=== PATIENT | female | born 1995 | race Caucasian/White ===

== ENCOUNTER → 2022-04-24 | Outpatient (CLI) | payer BC, SELFPAY ==
[2022-04-27 22:48] LABS: HPV Reflexed? NOT INDICATED
== END | disposition home or self-care (01) ==
LOC: LABSPEC 12:26
PROVIDERS: Referring Provider Registered Nurse; Visit Provider Registered Nurse
DX: Z12.4 Encounter for screening for malignant neoplasm of cervix (principal)
CPT/HCPCS: 88175; G0145

== ENCOUNTER → 2023-02-09 | Outpatient (CLI) | payer BC, SELFPAY ==
[2023-02-09 17:08] LABS: Absolute Lymphocyte Count 3.32 X10^3/uL (0.83-4.51); Absolute Neutrophil Count 7.5 X10^3/uL (2.0-7.7); Basophil# 0.06 X10^3/uL; Basophil% 0.5 % (0-1); Eosinophil# 0.11 X10^3/uL; Eosinophils% 0.9 % (0-5); Hematocrit 41.1 % (37-47); Hemoglobin 13.4 g/dL (12.0-15.0); Lymphocyte # 3.32 X10^3/ul (0.83-4.51); Lymphocyte % 28.4 % (19-41); Mean Corp Hgb Conc 32.6 g/dL (32-36); Mean Corpuscular Hgb 28.2 pg (27.0-32.0); Mean Corpuscular Volume 86.3 fL (81-99); Mean Platelet Vol. 9.2 fl (6.2-12.0); NRBC Flagged by Analyzer 0 % (0-5); Neutrophil # 7.46 X10^3/uL (2.7-7.7); Neutrophil % 63.7 % (47-70); Platelet Count 405 K/mm3 (150-450); RBC Distribution Width CV 12.2 % (11.6-14.6); RBC Distribution Width SD 38.6 fl (35.1-43.9); Red Blood Count 4.76 M/mm3 (4.2-5.4); White Blood Count 11.7 K/mm3 (4.4-11.0)
[2023-02-09 18:26] LABS: T4 Free Direct 0.89 ng/dL (0.76-1.46); Thyroid Stim Hormone (TSH) 1.45 uIU/mL (0.358-3.74)
== END | disposition home or self-care (01) ==
LOC: LAB 16:43
PROVIDERS: Referring Provider Registered Nurse; Visit Provider Registered Nurse
DX: N92.6 Irregular menstruation, unspecified (principal)
CPT/HCPCS: 36415; 84439; 84443; 85025

== ENCOUNTER → 2023-02-26 | Outpatient (CLI) | payer BC, SELFPAY ==
--- NOTE | 2023-02-26 15:20 | US_ITS ---
STUDY: ULTRASOUND TRANSVAGINAL CLINICAL: Female, 27 years old. abnormal uterine bleeding TECHNIQUE: Transvaginal COMPARISON: None. FINDINGS: Normal uterine size measuring 7.6 x 4.0 x 3.4 cm in maximal craniocaudal dimension. There are no myometrial masses. Normal endometrial thickness measuring 7 mm. There are no endometrial masses, and there is no fluid in the endometrial cavity. Endometrial echoes are hyperechoic and well-defined. Nabothian cysts of the uterine cervix. Normal right ovary, measuring 4.3 x 4.1 x 2.9 cm. There are multiple follicles without a dominant cyst. Normal blood flow. Normal left ovary, measuring 4.1 x 2.3 x 2.6 cm. There is a complex heterogeneous and primarily hyperechoic mass measuring 4.2 cm greatest dimension most consistent with dermoid. Normal blood flow. There is mild free fluid in the pelvis. Polycystic ovary disease: No. 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 Electronically Signed: Des Jarvis MD at 21:54 EST ,
== END | disposition home or self-care (01) ==
LOC: OPUS 15:19
PROVIDERS: Referring Provider Registered Nurse; Visit Provider Registered Nurse
DX: N92.6 Irregular menstruation, unspecified (principal)
CPT/HCPCS: 76830

== ENCOUNTER → 2023-05-02 | Outpatient (CLI) | payer BC, SELFPAY ==
--- OUTSIDE RECORDS SUMMARY | 2023-05-02 17:15 | XMS RPT_ITS | CCD ---
Author Name Unknown Address [address] [place] [address] Organization [facility] Care Team Providers Care Leak Detector Name Role Phone Vince Gunter Primary Care Provider Radha Membreno MD Primary Care Provider MARTHA FINCH Attending Unava ilable RADHA MEMBRENO Primary Care UnavailEloy Mayers Unavailable [phone] Unavailable Unavailable ELOY LOWERY Primary Care Unavailable ELOY LOWERY Attending Unavailable ELOY LOWERY Referring Unavailable Radha Membreno MD Primary Care Provider RADHA MEMBRENO Primary Care UnavailRADHA Miranda Attending RADHA Oleary Referring RADHA Oleary Primary Care Unavailabl e JERMAINE BAH Primary Care Unavailable RADHA MEMBRENO Attending Walter e Medications Current Medications Medication Drug Class(es) Dates Sig (Normalized) Sig (Original) perflutren lipid microspheres 1.3 mL in NaCl (PF) 0.9% 10 mL injection (DEFINITY) (1 source) Start: 08-04-2022 End: 11-03-2023 perflutren lipid microspheres 1.3 mL in NaCl (PF) 0.9% 10 mL injection (DEFINITY) 125 ml sodium chloride 9 mg/ml prefilled syringe (1 source) Start: 08-04-2022 End: 11-03-2023 sodium chloride 0.9 % (flush) 10 mL (BD POSIFLUSH) Completed/Discontinued Medications Medication Drug Class(es) Dates Sig (Normalized) Sig (Original) Ethinyl Estradiol / Norgestrel (3 sources) Estrogen Start: 02-28-2021 End: 08-04-2022 take 1 tablet by mouth once daily norgestrel-ethinyl estradiol (CRYSELLE) 0.3-30 mg-mcg per tablet Take 1 tablet by mouth once daily. 28 tablet 3 02/28/2021 08/04/2022 Discontinued Problems Active Problems Problem Classification Problem Date Documented Da te Episodic/Chronic Immunizations and screening for infectious disease (1 source) Vaccination needed; Translations: [Encounter for immunization] Episodic Nonspecific chest pain (5 sources) Chest pain, unspecified; Translations: [Finding of region of thorax] Onset: 03-18-2022 Episodic Residual codes; unclassified (1 source) Body mass index 20-24 - normal; Translations: [Body Mass Index between 19-24, adult] Episodic Sprains and strains (1 source) Whiplash injury to neck; Translations: [Whiplash injury to neck, initial encounter] Episodic Superficial injury; contusion (1 source) Contusion of face; Translations: [Contusion of jaw, initial encounter] Episodic Past or Other Problems Problem Classification Problem Date Documented Da te Episodic/Chronic Syncope (2 sources) Syncope; Translations: [Syncope and collapse] Onset: 02-16-2022 Episodic Results Test Name Value Interpretation Reference Range Facil ity Vital Signs Date Time Vital Sign Value Performing Clinician Hank velázquez 08-04-2022 13:38-0400 Body height 159 cm Radha Middleton Work Phone: [facility] 08-04-2022 13:38-0400 Body temperature 97.9 [degF] Radha Middleton Work Phone: [facility] 08-04-2022 13:38-0400 Body weight 58.97 kg Radha Middleton Work Phone: [facility] 08-04-2022 13:38-0400 Diastolic blood pressure 74 mm[Hg] Radha Membreno MD Work Phone: [facility] 08-04-2022 13:38-0400 Heart rate 77 /min Radha Middleton Work Phone: [facility] 08-04-2022 13:38-0400 Systolic blood pressure 110 mm[Hg] Radha Membreno MD Work Phone: [facility] 03-24-2022 13:32-0500 Body height 159 cm Eloy Nag S Mallapareddi Work Phone: [facility] Work Phone: 03-24-2022 13:32-0500 Body mass index (BMI) [Ratio] 23.5 kg/m2 Eloy Nag S Mallapareddi Work Phone: [facility] Work Phone: 03-24-2022 13:32-0500 Body surface area Derived from formula 1.61 m2 Eloy Nag S Mallapareddi Work Phone: [facility] Work Phone: 03-24-2022 13:32-0500 Body weight 59.42 kg Eloy Nag S Mallapareddi Work Phone: [facility] Work Phone: 03-24-2022 13:32-0500 Diastolic blood pressure 70 mm[Hg] Eloy Nag S Mallapareddi Work Phone: [facility] Work Phone: 03-24-2022 13:32-0500 Heart rate 72 /min Eloy Nag S Mallapareddi Work Phone: [facility] Work Phone: 03-24-2022 13:32-0500 Systolic blood pressure 126 mm[Hg] Eloy Nag S Mallapareddi Work Phone: [facility] Work Phone: 02-16-2022 13:05-0400 Body weight 59.06 kg Radha Middleton Work Phone: [facility] 02-16-2022 13:05-0400 Diastolic blood pressure 84 mm[Hg] Radha Membreno MD Work Phone: [facility] 02-16-2022 13:05-0400 Heart rate 98 /min Radha Middleton Work Phone: [facility] 02-16-2022 13:05-0400 SaO2% (BldA) [Mass fraction] 100 % Radha Membreno MD Work Phone: [facility] 02-16-2022 13:05-0400 Systolic blood pressure 126 mm[Hg] Radha Membreno MD Work Phone: [facility] Encounters Encounter Date Encounter Type Care Provider Facility Start: 08-04-2022 End: 08-04-2022 ambulatory RADHA MEMBRENO Facility:[facility] Start: 08-04-2022 End: 08-04-2022 Patient encounter procedure Radha Membreno MD Work Phone: [facility] Procedures Date Procedure Procedure Detail Performing Clinician Start: 02-16-2022 INFLUENZA VACCINE QUADRIVALENT 6 MO - 64 YRS IM Radha Membreno MD Work Phone: Start: 04-27-2020 Radiolog exam mandib le compl minimum 4 views Mikayla Montgomery Work Phone: Start: 04-27-2020 Radex spine cervical 2 or 3 views Mikayla Montgomery Work Phone: No history of surgery Eloy Lowery Work Phone: Plan of Treatment Date Care Activity Detail Author Start: 04-21-2022 FUV, Provider: Eloy Lowery, Status: Pen, Time: 3:00 PM FUV, Provider: Eloy Lowery, Status: Pen, Time: 3:00 PM [facility] Work Phone: Start: 04-01-2022 PAP TESTING PAP TESTING [facility] Start: 04-16-2021 DEPRESSION ASSESSMENT DEPRESSION ASSESSMENT [facility] Start: 12-16-2019 Influenza vaccination Flu vaccine (#1) [place] Start: 12-17-2018 DTaP/Tdap/Td vaccine (5 - Td) DTaP/Tdap/Td vaccine (5 - Td) [place] Start: 12-17-2018 Urine microalbumin profile [facility] Start: 2018 Screening for malignant neoplasm of cervix Cervical cancer screen [place] Start: 07-25-2015 HEPATITIS C SCREENING HEPATITIS C SCREENING [facility] Start: 07-25-2015 HIV SCREENING HIV SCREENING [facility] Start: 2013 Screening for Chlamydia trachomatis Chlamydia screen [place] Start: 2012 HIV screening HIV screen [place] Start: 07-25-2011 PEDS TO ADULT TRANSITION ANNUAL ASSESSMENT PEDS TO ADULT TRANSITION ANNUAL ASSESSMENT [facility] Start: 2009 PEDS TO ADULT TRANSITION INITIAL DISCUSSION PEDS TO ADULT TRANSITION INITIAL DISCUSSION [facility] Start: 07-25-2007 MENINGOCOCCAL B: Consider based on risk (1 of 2 - Risk Bexsero 2-dose series) MENINGOCOCCAL B: Consider based on risk (1 of 2 - Risk Bexsero 2-dose series) [facility] Start: 01-23-1998 COVID-19 VACCINE (#1) COVID-19 VACCINE (#1) [facility] Start: 1997 Hepatitis C screening Hepatitis C screen [place] End: 08-05-2023 STRESS ECHO TREADMILL STRESS ECHO TREADMILL Cardiology Routine Other chest pain 1 Occurrences starting 08/04/2022 until 08/05/2023 [facility] Work Phone: Immunizations Immunization Date Immunization Notes Care Provider Fa [facility] 02-16-2022 influenza, injectabl e, quadrivalent, contains preservative Radha Membreno MD Work Phone: [facility] 06-11-2020 influenza, injectabl e, quadrivalent, contains preservative Radha Membreon MD Work Phone: [facility] 02-09-2014 meningococcal polysaccharide (groups A, C, Y and W-135) diphtheria toxoid conjugate vaccine (MCV4P) [facility] 1 [facility] Work Phone: 02-03-2014 Fluvirin 4 years and over Mm 1 [facility], [place] 02-03-2014 influenza, seasonal, injectable Radha Membreno MD Work Phone: [facility] Work Phone: 03-25-2013 human papilloma viru s vaccine, quadrivalent Mm 1 [facility] Work Phone: 03-25-2013 influenza virus vaccine, unspecified formulation Mm 1 [facility], [place] 03-25-2013 influenza, seasonal, injectable, preservative free Radha Membreno MD Work Phone: [facility] Work Phone: 03-29-2012 influenza virus vaccine, unspecified formulation [facility] 1 [facility] [place] 03-29-2012 influenza, seasonal, injectable, preservative free Radha Membreno MD Work Phone: [facility] Work Phone: 12-29-2011 human papilloma viru s vaccine, quadrivalent Mm 1 [facility] Work Phone: 10-19-2011 hepatitis A vaccine, pediatric/adolescent dosage, 2 dose schedule Radha Membreno MD Work Phone: [facility] Work Phone: 10-19-2011 hepatitis A vaccine, unspecified formulation [facility] 1 [facility] Work Phone: 10-19-2011 human papilloma viru s vaccine, quadrivalent Mm 1 [facility] Work Phone: 11-24-2009 hepatitis A vaccine, pediatric/adolescent dosage, 2 dose schedule Radha Membreno MD Work Phone: [facility] Work Phone: 11-24-2009 hepatitis A vaccine, unspecified formulation Mm 1 [facility] Work Phone: 11-24-2009 human papilloma viru s vaccine, quadrivalent Radha Membreno MD Work Phone: [facility] 11-24-2009 varicella virus vaccine Mm 1 [facility] Work Phone: 03-09-2009 novel [id number], preservative-free, injectable Radha Membreno MD Work Phone: [facility] Work Phone: 12-17-2008 meningococcal ACWY vaccine, unspecified formulation Mm 1 [place] 12-17-2008 meningococcal polysaccharide (groups A, C, Y and W-135) diphtheria toxoid conjugate vaccine (MCV4P) Radha Membreno MD Work Phone: [facility] Work Phone: 12-17-2008 tetanus toxoid, redu karena diphtheria toxoid, and acellular pertussis vaccine, adsorbed Mm 1 [facility] Work Phone: 11-11-2007 diphtheria, tetanus toxoids and acellular pertussis vaccine Radha Membreno MD Work Phone: [facility] 12-03-2002 diphtheria, tetanus toxoids and acellular pertussis vaccine [facility] 1 [facility] 12-03-2002 diphtheria, tetanus toxoids and acellular pertussis vaccine, unspecified formulation Radha Membreno MD Work Phone: [facility] Work Phone: 12-03-2002 measles, mumps and rubella virus vaccine Mm 1 [facility] 12-03-2002 poliovirus vaccine, inactivated Radha Membreno MD Work Phone: [facility] 12-03-2002 poliovirus vaccine, unspecified formulation Mm 1 [facility] Work Phone: 11-10-1998 diphtheria, tetanus toxoids and acellular pertussis vaccine [facility] 1 [facility] Work Phone: 11-10-1998 diphtheria, tetanus toxoids and acellular pertussis vaccine, unspecified formulation Radha Membreno MD Work Phone: [facility] Work Phone: 07-29-1998 haemophilus influenz ae type b vaccine, conjugate unspecified formulation Radha Membreno MD Work Phone: [facility] Work Phone: 07-29-1998 haemophilus influenz ae type b vaccine, HbOC conjugate Radha Membreno MD Work Phone: [facility] Work Phone: 07-29-1998 haemophilus influenz ae type b vaccine, PRP-OMP conjugate Radha Membreno MD Work Phone: [facility] Work Phone: 07-29-1998 Hib, unspecified Mm 1 [place], [place] 07-29-1998 measles, mumps and rubella virus vaccine [address] 07-29-1998 measles, mumps, rubella, and varicella virus vaccine Radha Membreno MD Work Phone: [facility] 07-29-1998 poliovirus vaccine, inactivated Radha Membreno MD Work Phone: [facility] 07-29-1998 poliovirus vaccine, unspecified formulation [facility] 1 [place], [place] 07-29-1998 trivalent poliovirus vaccine, live, oral Radha Membreno MD Work Phone: [facility] Work Phone: 07-29-1998 varicella virus vaccine [facility] 1 [facility] Work Phone: 05-18-1998 hepatitis B vaccine, adult dosage Radha Membreno MD Work Phone: [facility] Work Phone: 05-18-1998 hepatitis B vaccine, pediatric or pediatric/adolescent dosage Radha Membreno MD Work Phone: [facility] 05-18-1998 hepatitis B vaccine, unspecified formulation Mm 1 [facility] Work Phone: 02-26-1998 diphtheria, tetanus toxoids and acellular pertussis vaccine Mm 1 [facility] 02-26-1998 diphtheria, tetanus toxoids and acellular pertussis vaccine, unspecified formulation Radha Membreno MD Work Phone: [facility] Work Phone: 02-26-1998 haemophilus influenz ae type b vaccine, conjugate unspecified formulation Radha Membreno MD Work Phone: [facility] Work Phone: 02-26-1998 haemophilus influenz ae type b vaccine, HbOC conjugate Radha Membreno MD Work Phone: [facility] Work Phone: 02-26-1998 haemophilus influenz ae type b vaccine, PRP-OMP conjugate Radha Membreno MD Work Phone: [facility] Work Phone: 02-26-1998 Hib, unspecified [facility] 1 [place], [place] 1997 diphtheria, tetanus toxoids and acellular pertussis vaccine [facility] 1 [facility] 1997 diphtheria, tetanus toxoids and acellular pertussis vaccine, unspecified formulation Radha Membreno MD Work Phone: [facility] Work Phone: 1997 haemophilus influenz ae type b conjugate and Hepatitis B vaccine Radha Membreno MD Work Phone: [facility] Work Phone: 1997 haemophilus influenz ae type b vaccine, conjugate unspecified formulation Radha Membreno MD Work Phone: [facility] Work Phone: 1997 haemophilus influenz ae type b vaccine, HbOC conjugate Radha Membreno MD Work Phone: [facility] Work Phone: 1997 hepatitis B vaccine, adult dosage Radha Membreno MD Work Phone: [facility] Work Phone: 1997 hepatitis B vaccine, pediatric or pediatric/adolescent dosage Radha Membreno MD Work Phone: [facility] 1997 hepatitis B vaccine, unspecified formulation Mm 1 [facility] Work Phone: 1997 Hib, unspecified [facility] 1 [place], [place] 1997 poliovirus vaccine, inactivated Radha Membreno MD Work Phone: [facility] 1997 poliovirus vaccine, unspecified formulation [facility] 1 [facility] Work Phone: 1997 diphtheria, tetanus toxoids and acellular pertussis vaccine [facility] 1 [facility] 1997 diphtheria, tetanus toxoids and acellular pertussis vaccine, unspecified formulation Radha Membreno MD Work Phone: [facility] Work Phone: 1997 haemophilus influenz ae type b conjugate and Hepatitis B vaccine Radha Membreno MD Work Phone: [facility] Work Phone: 1997 haemophilus influenz ae type b vaccine, conjugate unspecified formulation Radha Membreno MD Work Phone: [facility] Work Phone: 1997 haemophilus influenz ae type b vaccine, HbOC conjugate Radha Membreno MD Work Phone: [facility] Work Phone: 1997 hepatitis B vaccine, adult dosage Radha Membreno MD Work Phone: [facility] Work Phone: 1997 hepatitis B vaccine, pediatric or pediatric/adolescent dosage Radha Membreno MD Work Phone: [facility] 1997 hepatitis B vaccine, unspecified formulation Mm 1 [facility] Work Phone: 1997 Hib, unspecified [facility] [place] 1997 poliovirus vaccine, inactivated Radha Membreno MD Work Phone: [facility] 1997 poliovirus vaccine, unspecified formulation [facility] 1 [facility] Work Phone: Payers Date Payer Category Payer Unknown 2022 Unknown [id number] 2020 Unknown GENERIC SELF-INS URED GENERIC SELF-INSURED [id number] 2020-Present [id number] 2019 Private Health Insurance [employer] A ETNA CHOICE POS II [id number] 2019-Present [phone] [address] [place] [address] POS [id number] 2019 Private Health Insurance [id number] 1997 Unknown [id number] 1997 Unknown [id number] Social History Date Type Detail Facility Start: 02-09-2014 End: 02-16-2022 Tobacco smoking status ARIS Never smoker [facility] Work Phone: Start: 1995 Sex Assigned At Not on file [place] Start: 02-16-2022 Tobacco use and exposure Smoke less tobacco non-user [facility] Work Phone: Start: 02-16-2022 End: 08-04-2022 Alcohol intake Current non-drinker of alcohol (finding) [facility] Start: 04-01-2019 History SDOH Alcohol Frequency 1 [facility] Start: 04-01-2019 History SDOH Alcohol Std Drinks 98 [facility] Start: 04-01-2019 History SDOH Social Connections Phone 2 [facility] Start: 04-01-2019 History SDOH Social Connections Get Together 3 [facility] Start: 04-01-2019 History SDOH Social Connections Living 7 [facility] Start: 04-01-2019 History SDOH Physica l Activity DPW 4 [facility] Start: 04-01-2019 History SDOH Physica l Activity MPS 6 [facility] Start: 04-01-2019 History SDOH Financial 5 [facility] Start: 04-01-2019 Education 16 [facility] Start: 02-06-2022 End: 02-16-2022 Exposure to SARS-CoV-2 (event) Not sure [facility] Never a smoker Never a smoker [facility] Work Phone: Clinical Notes 01-22-2022 to 08-04-2022 Radha Membreno MD - 08/04/2022 1:49 PM EDTTelephone Encounter - Sandra Mota - 02/17/2022 9:36 AM EDTTelephone Encounter - Radha Membreno MD - 02/16/2022 5:26 PM EDT Note Date & Type Note Facility 08-04-2022 Note HNO ID: [id number] Author: Radha Membreno MD Service: ? Author Type: Physician Type: Progress Notes Filed: 08/04/2022 2:07 PM Note Text: SUBJECTIVE: Nany Jin is a 27 year old female Patient presents with: Follow Up She notes ongoing sx of left chest pain/pressure a couple times weekly, not necessarily exercise induced with sx lasting up to several hours. She has less sx when menstruating, sx did not respond to course of rx with PPI last year. CURRENT MEDICATIONS: No current outpatient medications on file prior to visit. No current facility-administered medications on file prior to visit. PROBLEM LIST: There is no problem list on file for this patient. ALLERGIES: Patient has no known allergies. REVIEW OF SYSTEMS:GENERAL: No weight loss, malaise or fevers RESPIRATORY: Negative for cough, hemoptysis, wheezing, COPD, dyspnea or shortness of breath CARDIOVASCULAR: See HPI BP 110/74 (BP Site: Right Arm, BP Position: Sitting, BP Cuff Size: Regular Adult) Pulse 77 Temp 36.6 ?C (97.9 ?F) (Temporal) Ht 159 cm (5' 2.6 ) Wt 59 kg (130 lb) LMP 07/31/2022 (Approximate) BMI 23.33 kg/m? General Appearance: Well appearing, alert, in no acute distress, well-hydrated, well nourished. Lungs: clear to auscultation, no wheezing or rhonchi Heart: NSR Abdomen: no abnormalities noted Neurologic: grossly intact ASSESSMENT/PLAN: 1. Other chest pain - ICD9: 786.59, ICD10: R07.89 Atypical chest pain, symptoms are not consistent with cardiac ischemia due to nonexertional nature of symptom possible etiology include GERD and Anxiety - Stress testing- see orders - STRESS ECHO TREADMILL Radha Membreno MD MEDICATION: Reviewed with patient REVIEW OF RECORDS: Progress note PATIENT EDUCATION: Discussed diet and Discussed exercise/therapy REVIEW OF TESTS: Labs Radha Membreno MD [facility] 08-04-2022 History of Presen t illness Narrative SUBJECTIVE: Nany Jin is a 27 year old female Patient presents with: Follow Up She notes ongoing sx of left chest pain/pressure a couple times weekly, not necessarily exercise induced with sx lasting up to several hours. She has less sx when menstruating, sx did not respond to course of rx with PPI last year. CURRENT MEDICATIONS: No current outpatient medications on file prior to visit. No current facility-administered medications on file prior to visit. PROBLEM LIST: There is no problem list on file for this patient. ALLERGIES: Patient has no known allergies. REVIEW OF SYSTEMS:GENERAL: No weight loss, malaise or fevers RESPIRATORY: Negative for cough, hemoptysis, wheezing, COPD, dyspnea or shortness of breath CARDIOVASCULAR: See HPI BP 110/74 (BP Site: Right Arm, BP Position: Sitting, BP Cuff Size: Regular Adult) Pulse 77 Temp 36.6 C (97.9 F) (Temporal) Ht 159 cm (5' 2.6 ) Wt 59 kg (130 lb) LMP 07/31/2022 (Approximate) BMI 23.33 kg/m General Appearance: Well appearing, alert, in no acute distress, well-hydrated, well nourished. Lungs: clear to auscultation, no wheezing or rhonchi Heart: NSR Abdomen: no abnormalities noted Neurologic: grossly intact ASSESSMENT/PLAN: 1. Other chest pain - ICD9: 786.59, ICD10: R07.89 Atypical chest pain, symptoms are not consistent with cardiac ischemia due to nonexertional nature of symptom possible etiology include GERD and Anxiety - Stress testing- see orders - STRESS ECHO TREADMILL Radha Membreno MD MEDICATION: Reviewed with patient REVIEW OF RECORDS: Progress note PATIENT EDUCATION: Discussed diet and Discussed exercise/therapy REVIEW OF TESTS: Labs Radha Membreno MD documented in this encounter [facility] 02-17-2022 Miscellaneous Notes Formattin g of this note might be different from the original. Patient given message. Verbalized understanding. No further action needed. Sandra Mota Notify patient that tests are good. documented in this encounter [facility] 02-16-2022 Note HNO ID: [id number] Author: Radha Membreno MD Service: ? Author Type: Physician Type: Progress Notes Filed: 02/16/2022 1:39 PM Note Text: SUBJECTIVE: Nany Jin is a 26 year old female Patient presents with: Follow Up Syncope She had an episode of syncope with warning when at public event, then again sx without passing out shortly afterwards. No definite pattern to sx CURRENT MEDICATIONS: Current Outpatient Medications on File Prior to Visit Medication Sig norgestrel-ethinyl estradiol (CRYSELLE) 0.3-30 mg-mcg per tablet Take 1 tablet by mouth once daily. No current facility-administered medications on file prior to visit. PROBLEM LIST: There is no problem list on file for this patient. ALLERGIES: Patient has no known allergies. REVIEW OF SYSTEMS:GENERAL: No weight loss, malaise or fevers RESPIRATORY: Negative for cough, hemoptysis, wheezing, COPD, dyspnea or shortness of breath CARDIOVASCULAR: Negative for chest pain, leg swelling, hypertension, CHF or palpitations BP 126/84 (BP Site: Left Arm, BP Position: Sitting, BP Cuff Size: Regular Adult) Pulse 98 Wt 59.1 kg (130 lb 3.2 oz) LMP 01/22/2022 (Approximate) SpO2 100% BMI 23.81 kg/m? General Appearance: Well appearing, alert, in no acute distress, well-hydrated, well nourished. Lungs: clear to auscultation, no wheezing or rhonchi Heart: NSR Abdomen: no abnormalities noted Neurologic: grossly intact ASSESSMENT/PLAN: 1. Syncope, unspecified syncope type - ICD9: 780.2, ICD10: R55 Observe, maintain regular schedule. - COMP METABOLIC PANEL - CBC - TSH BLD Radha Membreno MD MEDICATION: Reviewed with patient REVIEW OF RECORDS: Progress note PATIENT EDUCATION: Discussed diet and Discussed exercise/therapy REVIEW OF TESTS: Labs Radha Membreno MD [facility] 02-16-2022 Nurse Note The patient is here for an injection of FLUZONE Dose: 0.5mL Route: Intramuscular Given without incident. Site: left deltoid Lead Driver: [employer] Lot #: [id number] Expiration Date: 10/13/[address] [facility]: [id number] Dr. Membreno present in clinic at time of injection. Patient tolerated injection well Vaccine(s) administered as ordered. VIS for each vaccine administered was provided. Sandra Mota documented in this encounter [facility] 02-16-2022 History of Presen t illness Narrative SUBJECTIVE: Nany Jin is a 26 year old female Patient presents with: Follow Up Syncope She had an episode of syncope with warning when at public event, then again sx without passing out shortly afterwards. No definite pattern to sx CURRENT MEDICATIONS: Current Outpatient Medications on File Prior to Visit Medication Sig norgestrel-ethinyl estradiol (CRYSELLE) 0.3-30 mg-mcg per tablet Take 1 tablet by mouth once daily. No current facility-administered medications on file prior to visit. PROBLEM LIST: There is no problem list on file for this patient. ALLERGIES: Patient has no known allergies. REVIEW OF SYSTEMS:GENERAL: No weight loss, malaise or fevers RESPIRATORY: Negative for cough, hemoptysis, wheezing, COPD, dyspnea or shortness of breath CARDIOVASCULAR: Negative for chest pain, leg swelling, hypertension, CHF or palpitations BP 126/84 (BP Site: Left Arm, BP Position: Sitting, BP Cuff Size: Regular Adult) Pulse 98 Wt 59.1 kg (130 lb 3.2 oz) LMP 01/22/2022 (Approximate) SpO2 100% BMI 23.81 kg/m General Appearance: Well appearing, alert, in no acute distress, well-hydrated, well nourished. Lungs: clear to auscultation, no wheezing or rhonchi Heart: NSR Abdomen: no abnormalities noted Neurologic: grossly intact ASSESSMENT/PLAN: 1. Syncope, unspecified syncope type - ICD9: 780.2, ICD10: R55 Observe, maintain regular schedule. - COMP METABOLIC PANEL - CBC - TSH BLD Radha Membreno MD MEDICATION: Reviewed with patient REVIEW OF RECORDS: Progress note PATIENT EDUCATION: Discussed diet and Discussed exercise/therapy REVIEW OF TESTS: Labs Radha Membreno MD documented in this encounter [facility] 01-22-2022 History of Presen t illness Narrative Patient is here to establish care and to discuss following acute concerns.Chest pain:Was seen in the ED with normal evaluation.Syncope: has had these episodes as a fresh man to college time. then resolved without symptoms for about 2 years. About two months ago she had most recent episodes.Has been having brain fog episodes since then. Initially was all day and gradually improved.However, in the last week this has improved.Feels hot - hot flash before the syncope episode. Then she feels nauseous.Chest pain: left sided - heavy weight sensation. Has shortness of breath. normally in the morning for the first 4 hours. Last three or four days has been having heavy feeling. Feels nauseous in the morning. this resolves within couple of hours.Has been on control for the last three years. 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 * Chest pain: * Was seen in the ED with normal evaluation. No acute findings were noticed. left sided - heavy weight sensation. Has shortness of breath. normally in the morning for the first 4 hours. Last three or four days has been having heavy feeling. Feels nauseous in the morning. this resolves within couple of hours. * Syncope: has had these episodes as a freshmen to college time. then resolved without symptoms for about 2 years. About two months ago she had most recent episodes. * Has been having brain fog episodes since then. Initially was all day and gradually improved. * However, in the last week this has improved. * Feels hot - hot flash before the syncope episode. Then she feels nauseous. Not associated with meals. * Has been on control for the last three years. She had test which came back negative. 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 * Wonders if she has anxiety attacks. Her friends have brought this up. But she herself thinks that she not under stress. reports that she in a better job,with less stress. She feels safe at home and work. * Plan: differential include vasovagal, POTS, orthostatic, anxiety, arrhythmia; abdominal pain and nausea- gastritis, gallstones, etc. Pulse has not significantly raised with change in position. No significant blood pressure change noticed with change in position. She will try antacid. Requested her to send previous lab testing that was done. We may consider holter monitor if patient endorses palpitations. * Follow up in 2-4 weeks. -[facility] Work Phone: Reason for referral (narrative)* Outpatient Procedure (Routine) - Pending Review Specialty Diagnoses / Procedures Referred By Murphy sheldon [facility] Diagnoses Other chest pain Procedures STRESS ECHO TREADMILL ECHO TTHRC R-T 2D W/WO M-MODE COMPLETE REST&ST Radha Membreno MD [address] [place] [address] [facility] [address] [place] [address] Referral ID Status Reason Start Date Expiration Date Visits Requested Visits Authorized [id number] Pending Review Auto-Generat ed Referral 08/04/2022 08/04/2023 1 1 [facility] Assessments Diagnosis Whiplash injury to neck, initial encounter Diagnosis Contusion of jaw, initial encounter Advance Directives No Advanced Directives Records FoundDocuments on File Type Date Recorded 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 Summary Purpose Family History No Family History Records FoundUnknown Family Member Name Dates Details POTS (postural orthostatic t achycardia syndrome): Mother Status:Active Family history of Alzheimer' s disease: Paternal Grandfather(V17.2, Z82.0) Status:Active Unknown Family Member Name Dates Details POTS (postural orthostatic t achycardia syndrome): Mother Status:Active Family history of Alzheimer' s disease: Paternal Grandfather(V17.2, Z82.0) Status:Active Chief Complaint new pt, c/o left side chest pain was seen in ER Sat., brain fog, AM nausea,passed out in Oct ,hx ofconcussion.new pt, c/o left side chest pain was seen in ER Sat., brain fog, AM nausea,passed out in Oct ,hx ofconcussion. Additional Source Comments Source Comments (unrecognize d section and content) In the event this informatio n is protected by the Federal Confidentiality of Alcohol and Drug Abuse Patient Records regulations: The Federal rules restrict any use of the information to criminally investigate or prosecute any alcohol or drug abuse patient.[facility] the event this information is protected by the Federal Confidentiality of Alcohol and Drug Abuse Patient Records regulations: The Federal rules restrict any use of the information to criminally investigate or prosecute any alcohol or drug abuse patient.[facility] the event this information is protected by the Federal Confidentiality of Alcohol and Drug Abuse Patient Records regulations: The Federal rules restrict any use of the information to criminally investigate or prosecute any alcohol or drug abuse patient.[facility] Reason for Visit (unrecogniz ed section and content) Reason Comments Results Reason Comments Follow Up Care Teams (unrecognized sec tion and content) Leak Detector Relationship Specialty Start Date End Date Radha eMmbreno MD [address] [place] [address] PCP - General Family Medicine 02/16/22 Leak Detector Relationship Specialty Start Date End Date Radha Membreno MD [address] [place] [address] PCP - General Family Medicine 02/16/22 INFORMATION SOURCE (unrecogn ized section and content) DATE CREATED AUTHOR AUTHOR'S ORGANIZ ATION 03/25/2022 [facility] DATE CREATED AUTHOR AUTHOR'S ORGANIZ ATION 03/26/2022 [email or web address] DATE CREATED AUTHOR AUTHOR'S ORGANIZ ATION 08/05/2022 [facility] FOR RECORDS PERTAINING TO PATIENTS WHO ARE OR HAVE BEEN ENROLLED IN A CHEMICAL DEPENDENCY/SUBSTANCEABUSE PROGRAM, SOME INFORMATION MAY BE OMITTED. This clinical summary was aggregated from multiple sources. Caution should be exercised in using it in the provision of clinical care. This summary normalizes information from multiple sources, and as a consequence, information in this document may materially change the coding, format and clinical context of patient data. In addition, data may be omitted in some cases. CLINICAL DECISIONS SHOULD BE BASED ON THE PRIMARY CLINICAL RECORDS. [facility]. provides no warranty or guarantee of the accuracy or completeness of information in this document.
[2023-05-06 07:07] LABS: Chlamydia By Nucleic Acid AMP Negative (Negative); Gonococcus By Nucleic Acid AMP Negative (Negative)
== END | disposition home or self-care (01) ==
LOC: LABSPEC 17:03
PROVIDERS: Referring Provider Registered Nurse; Visit Provider Registered Nurse
DX: Z11.3 Encounter for screening for infections with a predominantly sexual mode of transmission (principal)
CPT/HCPCS: 87491; 87591

== ENCOUNTER → 2023-05-15 | Outpatient (CLI) | payer BC, SELFPAY ==
--- NOTE | 2023-05-15 09:24 | US_ITS ---
STUDY: ULTRASOUND OF THE FEMALE PELVIS - COMPLETE REASON FOR EXAM: Female, 27 years old. Dermoid follow up LMP: April 19, 2023. TECHNIQUE: Transvaginal TECHNICAL QUALITY: Adequate. COMPARISON: Comparison is made with prior study dated February 26, 2023. FINDINGS: The uterus is anteverted and is in a midline position. The uterus measures 7.3 cm x 4.3 cm x 3.8 cm. Normal uterine cervix. The endometrium measures 9.9 mm in thickness, and is hyperechoic. There is no demonstrated endometrial mass. There is no demonstrated myometrial mass. I.U.D. - The patient does not have an I.U.D. The right ovary is visualized. The right ovary measures 4.5 cm x 4.4 cm x 3.2 cm. Once again, there is evidence of a 3.7 cm x 4.2 cm x 3 cm complex mass in the right ovary consistent of fat and the fluid. This is suggestive of a dermoid cyst. This is unchanged. There is no visualized right adnexal mass or complex lesion. There is normal arterial and normal venous vascularity. The left ovary is visualized. The left ovary measures 3.7 cm x 3.4 cm x 2.5 cm. There is no left ovarian cyst or ovarian mass. There is no visualized left adnexal mass or complex lesion. There is normal arterial and normal venous vascularity. There is minimal fluid in the cul-de-sac. US/Transvaginal Non- IMPRESSION: Stable examination. Electronically Signed: Genaro Randle MD at 15:07 EST ,
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
== END | disposition home or self-care (01) ==
PROVIDERS: Referring Provider Registered Nurse; Visit Provider Registered Nurse
DX: D36.9 Benign neoplasm, unspecified site (principal)
CPT/HCPCS: 76830

== ENCOUNTER → 2024-07-03 | Outpatient (CLI) | payer OTHER, SELFPAY ==
--- NOTE | 2024-07-03 13:15 | US_ITS ---
PROCEDURE: TRANSVAGINAL W/PREG US (USTVAGP), 07/03/2024 REASON FOR EXAM: LLQ PAIN, HX OVARIAN CYST. Previously established dates unknown. TECHNIQUE: Grayscale and color/spectral doppler transabdominal and transvaginal pelvic ultrasound was performed with attention to the uterus and associated early gestation. COMPARISON: 05/15/2023 ; note that images only are available for review, the report is not available at the time of the dictation. FINDINGS: A single intrauterine gestational sac is identified. Gestational sac: 4.4 x 2.6 x 4.9 cm for mean sac diameter 4.0 cm, corresponding to 9 weeks 3 days. Bison-rump length: 20 mm, corresponding to 8 weeks 3 days. Yolk sac: Present. Cardiac activity: 170 bpm, regular. Estimated delivery date (MARCELINA): 02/09/2025 by CRL. Uterus: Otherwise unremarkable, 10.2 x 8.2 x 6.2 cm. Cervix: Unremarkable. Right ovary: 6.6 x 5.2 x 3.6 cm (estimated volume 63.7 mL). Enlarged by mixed echogenicity mostly solid-appearing lesion with some associated shadowing measuring 4.4 x 4.1 x 3.1 cm, present previously and measuring 3.7 x 3.0 x 4.2 cm on 05/15/2023 Left ovary: 3.8 x 2.5 x 2.1 cm (estimated volume 10.4 mL), unremarkable. Other: No significant visualized pelvic free fluid. US/Transvaginal w/Preg US IMPRESSION: 1. Single viable intrauterine gestational sac with an estimated gestational age of 8 weeks 3 days corresponding to MARCELINA 02/09/2025. Previously established dates not provided. Correlate with clinical factors. 2. Borderline tachycardia is nonspecific. Recommend clinical follow-up. Additionally recommend routine complete anatomic survey at 20 weeks. 3. Slightly enlarged mostly solid-appearing RIGHT ovarian lesion which may refl ect a dermoid (O-RADS 2). If not surgically excised, recommend follow-up ultrasound in 12 months per ACR O-RADS recommendat ions. Note that this places the patient at risk for future ovarian torsion. 4. Additional description as above. Reading Location: [id number]
== END | disposition home or self-care (01) ==
PROVIDERS: PCP Registered Nurse; Referring Provider Advanced Practice Midwife; Visit Provider Advanced Practice Midwife
DX: R10.32 Left lower quadrant pain (principal)
CPT/HCPCS: 76817

== ENCOUNTER → 2024-07-21 | Outpatient (CLI) | payer OTHER, SELFPAY ==
[2024-07-21 12:13] LABS: Absolute Lymphocyte Count 2.62 X10^3/uL (0.83-4.51); Absolute Neutrophil Count 11.1 X10^3/uL (2.0-7.7); Basophil# 0.05 X10^3/uL; Basophil% 0.3 % (0-1); Eosinophil# 0.07 X10^3/uL; Eosinophils% 0.5 % (0-5); Hematocrit 39.1 % (37-47); Hemoglobin 13.4 g/dL (12.0-15.0); Lymphocyte # 2.62 X10^3/ul (0.83-4.51); Lymphocyte % 17.8 % (19-41); Mean Corp Hgb Conc 34.3 g/dL (32-36); Mean Corpuscular Hgb 28.9 pg (27.0-32.0); Mean Corpuscular Volume 84.4 fL (81-99); Mean Platelet Vol. 9.9 fl (6.2-12.0); Monocyte% 5.4 % (0-10); NRBC Flagged by Analyzer 0 % (0-5); Neutrophil # 11.13 X10^3/uL (2.7-7.7); Neutrophil % 75.5 % (47-70); Platelet Count 328 K/mm3 (150-450); RBC Distribution Width CV 12.6 % (11.6-14.6); RBC Distribution Width SD 38.1 fl (35.1-43.9); Red Blood Count 4.63 M/mm3 (4.2-5.4); White Blood Count 14.8 K/mm3 (4.4-11.0)
[2024-07-21 12:43] LABS: HIV Nonreactive (Nonreactive); Hepatitis B Surface Antigen Nonreactive (Nonreactive); Hepatitis C Antibody Nonreactive (Nonreactive); Rubella IgG REAC (Nonreactive); Syphilis Antibodies Nonreactive (Nonreactive)
[2024-07-23 06:08] LABS: Chlamydia By Nucleic Acid AMP Negative (Negative); Gonococcus By Nucleic Acid AMP Negative (Negative)
== END | disposition home or self-care (01) ==
LOC: BWCLAB 11:19
PROVIDERS: PCP Registered Nurse; Visit Provider Obstetrics & Gynecology
DX: Z34.90 Encounter for supervision of normal pregnancy, unspecified, unspecified trimester (principal)
CPT/HCPCS: 36415; 85025; 86703; 86762; 86780; 86803; 86850; 86900; 86901; 87086; 87088; 87340; 87491; 87591

== ENCOUNTER → 2024-11-11 | Outpatient (CLI) | payer OTHER, SELFPAY ==
[2024-11-11 15:58] LABS: Hematocrit 32.5 % (37-47); Hemoglobin 11.0 g/dL (12.0-15.0); Immature Granulocytes Count 0.470 X10^3/uL (0.0-0.0); Mean Corp Hgb Conc 33.8 g/dL (32-36); Mean Corpuscular Volume 88.3 fL (81-99); Mean Platelet Vol. 10.1 fl (6.2-12.0); NRBC Flagged by Analyzer 0 % (0-5); Platelet Count 319 K/mm3 (150-450); RBC Distribution Width CV 13.1 % (11.6-14.6); RBC Distribution Width SD 42.3 fl (35.1-43.9); Red Blood Count 3.68 M/mm3 (4.2-5.4); White Blood Count 20.7 K/mm3 (4.4-11.0)
[2024-11-11 16:31] LABS: Glucose Challenge Gest 1H 50g 99 mg/dL (70-140); HIV Nonreactive (Nonreactive); Syphilis Antibodies Nonreactive (Nonreactive)
--- OUTSIDE RECORDS SUMMARY | 2024-11-11 23:01 | XMS RPT_ITS | CCD ---
Author Organization [facility] Care Team Providers Care Avionics Engineer Name Role Phone Vince Gunter Primary Care Provider Radha Membreno MD Primary Care Provider MARTHA FINCH Attending Unava ilable RADHA MEMBRENO Primary Care UnavailEloy Mayers Unavailable Unavailable Unavailable ELOY LOWERY Primary Care Unavailable ELYO LOWERY Attending Unavailable ELOY LOWERY Referring Unavailable WOODROW Mcclain Attending Provider Radha Membreno MD Primary Care Provider RADHA MEMBRENO Primary Care UnavailRADHA Miranda Attending UnavailRADHA Miranda Referring UnavailRADHA Miranda Primary Care Unavailabl e JERMAINE BAH Primary Care Unavailable RADHA MEMBRENO Attending UnavailWOODROW Torres Attending Provider [phone] Care Physician, No Primary Primary Care Provider Unavailable Care Physician, No Primary Referring Provider Un available Care Physician, No Primary Primary Care Provider Unavailable Care Physician, No Primary Referring Provider Un available Gayle Mcclain CNM Attending Provider Gayle Mcclain CNM Primary Care Provider Reyna Martinez CNM Attending Provider Reyna Martinez CNM Referring Provider Jinny Jordan RN Attending Provider UnavailGayle Torres CNM Referring Provider Ya PANIAGUA, Dr. Beverly Attending Provider [phone] NO PRIMARY CARE, Primary Care Unavailable NELSY FREEMAN Attending Unavailable REYNA MARTINEZ Referring Unavailable Dr. Nadia Ryan DO Attending Provider Reyna Martinez Attending Unavailable Reyna Martinez Referring Unavailable Mcclain, Gayle Primary Care Unavailable Mcclain, Gayle Primary Care Unavailable Siria Pandya Attending Unavailable Reyna Martinez Attending Unavailable Mcclain, Gayle Referring Unavailable Mcclain, Gayle Primary Care Unavailable Mcclain, Gayle Referring Unavailable Mcclain, Gayle Primary Care Unavailable Anna Finch NP Attending Unavailable Care Physician, No Primary Primary Care Unava ilable Care Physician, No Primary Referring Unava ilable Mcclain, Gayle Attending Unavailable Mcclain, Gayle Primary Care Unavailable Jinny Jordan Attending Unavailable Siria Pandya Attending Unavailable Mcclain, Gayle Referring Unavailable Mcclain, Gayle Primary Care Unavailable Mcclain, Gayle Referring Unavailable Mcclain, Gayle Primary Care Unavailable Nadia Ryan Attending Unavailabl e Mcclain, Gayle Referring Unavailable Reyna Martinez Attending Unavailable Mcclain, Gayle Primary Care Unavailable Mcclain CNM, Gayle Primary Care Provider [phone] Reyna Martinez CNM Attending Provider [phone] Dr. Nadia Ryan DO Referring Provider Grzegorz DE LA CRUZ-CAnna Attending Provider [phone] Medications Current Medications Medication Drug Class(es) Dates Sig (Normalized) Sig (Original) docosahexaenoic acid 200 mg oral capsule (4 sources) Start: 07-11-2024 Docosahexaenoic Acid ( Dha) 200 mg capsule Active mg PO July 11, 2024 12:00am perflutren lipid microspheres 1.3 mL in NaCl [...] daily. 28 tablet 3 02/28/2021 08/04/2022 Discontinued Start: 02-28-2021 take 1 tablet by earl th once daily norgestrel-ethinyl estradiol (CRYSELLE) 0.3-30 mg-mcg per tablet Take 1 tablet by mouth once daily. 28 tablet 3 02/28/2021 Active Comment on above: Take 1 tablet by earl th once daily. Low-Ogestrel 0.3-30 MG-MCG Oral Tablet (2 sources) Start: 2 Low-Ogestrel 0.3-30 MG-MCG Oral Tablet Quantity: 84 Refills: 0 Ordered: 26-Jan-2022 DO Start : 26-Jan-2022 Active norethindrone 0.35 mg oral tablet (5 sources) Start: 4 End: 5 take 1 tablet by mouth once daily Norethindrone (Contraceptive) (Natasha) 0.35 mg tablet Discontinued 0.35 mg PO daily 84 1 February 27, 2024 1:00am July 11, 2024 9:43am omeprazole 40 mg delayed release oral capsule (2 sources) Proton Pump Inhibitor Start: 2 take 1 capsule by mouth once daily Omeprazole 40 MG Oral Capsule Delayed Release TAKE 1 CAPSULE Daily Quantity: 30 Refills: 3 Ordered: 24-Mar-2022 Rigo PANIAGUA, MPH, Eloy Bobby Start : 24-Mar-2022 Active Problems Active Problems Problem Classification Problem Date Documented Da te Episodic/Chronic Abdominal pain (6 sources) Left lower quadrant pain; Translations: [Left lower quadrant pain] Onset: 07-10-2024 06-30-2024 Episodic Immunizations and screening for infectious disease (1 source) Vaccination needed; Translations: [Encounter for immunization] Episodic Menstrual disorders (19 sources) Irregular periods; Translations: [Irregular menstruation, unspecified] 04-24-2022 Chronic Comment on above: CBC, tsh/free t4 nor mal. repeat us in 3 months if no improvement. desires to try hormonal balancing first. f/u in 6 months. declines POP at this time. 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 will follow throughout . h/o dermoid in past. right ovarian dermoi d seen 4-5 cm seen 07/03-stable. will follow throughout . h/o dermoid in past. 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 recommended surgical consult. consulted with RENNY, agrees can medically manage as no symptoms. to obtain repeat us in 3 months. Other and delivery including normal (20 sources) ; Translations: [Encounter for supervision of normal , unspecified, unspecified trimester] Onset: 10-15-2024 07-04-2024 Episodic Comment on above: PRR (waiting on [facility]) MARCELINA 02/09/25, BF: Toby ordered genetic and carrier testing. PRR MARCELINA 5, BF: Toby genetic- low risk. c arrier- neg genetic- low risk. c arrier- neg, normal anatomy Residual codes; unclassified (1 source) Body mass index 20-24 - normal; Translations: [Body Mass Index between 19-24, adult] Episodic Residual codes; unclassified (1 source) 23 weeks gestation of ; Translations: [23 weeks gestation of ] Onset: 10-15-2024 Episodic Residual codes; unclassified (1 source) 19 weeks gestation of ; Translations: [19 weeks gestation of ] Onset: 09-15-2024 Episodic Sprains and strains (1 source) Whiplash injury to neck; Translations: [Whiplash injury to neck, initial encounter] Episodic Superficial injury; contusion (1 source) Contusion of face; Translations: [Contusion of jaw, initial encounter] Episodic Past or Other Problems Problem Classification Problem Date Documented Da te Episodic/Chronic Residual codes; unclassified (1 source) 11 weeks gestation of ; Translations: [11 weeks gestation of ] Onset: 07-21-2024 Episodic Syncope (2 sources) Syncope; Translations: [Syncope and collapse] Onset: 02-16-2022 Episodic Results Test Name Value Interpretation Reference Range Facility Laboratory - Chemistry and C hemistry - challengeOrdered By: Nadia Starks on 10-15-2024 Glucose Ql (U) Negative [facility] Laboratory - UrinalysisOrder ed By: Nadia Starks on 10-15-2024 Protein Ql (U) Negative [facility] Senior Linux Administrator Office Visit Reporton 10-15-2024 Senior Linux Administrator Office Visit Report [facility]'s [address], [address] [place] [address] OFFICE VISIT Date of Service: 10/15/24 MR#: [id number] Acct: [id number] Name: NANY BAPTISTE Rep #: [id number] : 1995 Provider: Dr. Nadia Patel DO Age/Sex: 29/F Location: [facility] [place] Status: Signed Intake Vital Signs 08/18/24 15:09 09/15/24 11:56 10/15/24 15:06 Height 5 ft 2 in 5 ft 2 in 5 ft 2 in Weight: 150 lb 4 oz BMI 27.4 BP 116/77 Intake Visit Reasons: 23 wk ob Creative Assistant Required: No Is patient in pain?: No Allergies No Known Allergies Allergy (Verified 10/15/24 15:10) Medications ???Medication ???Instructions ???Recorded ???Confirmed ???Type docosahexaenoic acid 200 mg mg PO 07/11/24 10/15/24 History capsule ( DHA) Last Menstrual Period: 04/23/24 Zika: Zika virus screening: Negative : No PFSH PFSH Medical History Dermoid cyst Irregular menstrual cycle Family History Grandfather Dementia Social History adopted: No household members: significant other housing: apartment number of children: 0 current occupational status: employed 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 current occupational exposures/hazards: No pets and animals: Yes pets and animals: dog(s) history of recent travel: No sexually active: Yes Smoking Status: Never smoker alcohol intake: never substance use type: does not use well-balanced diet: about half the time caffeine: No eating out: rarely or never during the past year weight has: remained stable what type of physical activity do you participate in: yoga frequency: 3-4 times per week duration: 15-30 minutes/day blayne/pentecostalism: Druze seatbelt use: always do you feel safe at home: Yes additional social history: BF: Toby - Sheet Tester History 1 Elective abortions Hx Para 0 Spontaneous abortions Hx # Term Pregnancies Ectopic pregnancies Hx # Pregnancies Multiple births # of living children HPI 23 wk ob Details: NANY BAPTISTE is a 29 year old who presents for routine OB visit. OB Visit MARCELINA Calculator Estimated Delivery Date Method Current WG Current Estimate 02/09/25 Ultrasound #1 23w 2d Other Estimates 01/28/25 LMP (Certain) 25w 0d Expected Delivery Route/Plan Labor Preferences- CB/BF classes: [] labor support person: [] labor intervention preferences: [] pain management options preferred: [] cut cord/dad catch: [] : [] PP control planned: [] discussed possible routes of delivery and associated risks: [] special requests: [] Specific Issue/Plans Covid status: [] Flu vaccine: [] Tdap vaccine: [] Rhogam: [] LARC form signed: [] Problem list reviewed and updated with the most current plan of care details and appropriate orders placed. Relevant counseling for the gestational age provided. Continue routine care and follow up unless otherwise noted in visit notes/problem list details Initial Weight: Not Recorded Date -???-???-???-???-???-?? ?-???-???-???-???-???-? ??- EGA Weight BP Urine Prot -???-???-???-???-???-?? ?-???-???-???-???-???-? ??- Glucose FHR FuHt Pres Dilation -???-???-???-???-???-?? ?-???-???-???-???-???-? ??- Effaced St Visit Note 07/21/24 -???-???-???-???-???-?? ?-???-???-???-???-???-? ??- 11w 0d 139 lb 126/75 -???-???-???-???-???-?? ?-???-???-???-???-???-? ??- 165 -???-???-???-???-???-?? ?-???-???-???-???-???-? ??- SM- CRL cons with previous US 08/18/24 -???-???-???-???-???-?? ?-???-???-???-???-???-? ??- 15w 0d 140 lb 2 oz 117/79 Negative -???-???-???-???-???-?? ?-???-???-???-???-???-? ??- Negative 153 -???-???-???-???-???-?? ?-???-???-???-???-???-? ??- KW- no vb/lo f/ctx. MFM US ordered. 09/15/24 -???-???-???-???-???-?? ?-???-???-???-???-???-? ??- 19w 0d 143 lb 6 oz 121/85 -???-???-???-???-???-?? ?-???-???-???-???-???-? ??- 155 -???-???-???-???-???-?? ?-???-???-???-???-???-? ??- KW- no vb/cr amping. US today- having a GIRL! 10/15/24 -???-???-???-???-???-?? ?-???-???-???-???-???-? ??- 23w 2d 150 lb 4 oz 116/77 -???-???-???-???-???-?? ?-???-???-???-???-???-? ??- 145 24 -???-???-???-???-???-?? ?-???-???-???-???-???-? ??- JV- no lof, vaginal bleeding, or dec fm . 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 feels baby move more at night. ACOG First Trimester First Trimester: Discussed Coding Level of Care Code OB Routine Diagnoses Dermoid cyst D36.9 Supervision of normal Z34.90 23 weeks gestation of Z3A.23 Weeks of gestation: 23 (more content not included)... Normal [facility] Senior Linux Administrator Office Visit Reporton 09-15-2024 Senior Linux Administrator Office Visit Report [facility]'s [address], [address] [place] [address] OFFICE VISIT Date of Service: 09/15/24 MR#: [id number] Acct: [id number] Name: NANY BAPTISTE Rep #: [id number] : 1995 Provider: WOODROW Genao ams Age/Sex: 29/F Location: [facility] [place] Status: Signed Intake Vital Signs 07/21/24 10:22 08/18/24 15:09 09/15/24 11:56 Height 5 ft 2 in 5 ft 2 in 5 ft 2 in Weight: 143 lb 6 oz BMI 26.2 BP 121/85 H Intake Visit Reasons: 19 wk ob Chief Complaint: 19wk OB Creative Assistant Required: No Is patient in pain?: No Allergies No Known Allergies Allergy (Verified 09/15/24 11:54) Medications ???Medication ???Instructions ???Recorded ???Confirmed ???Type docosahexaenoic acid 200 mg mg PO 07/11/24 09/15/24 History capsule ( DHA) Last Menstrual Period: 04/23/24 : No PFSH PFSH Medical History Dermoid cyst Irregular menstrual cycle Family History Grandfather Dementia Social History adopted: No household members: significant other housing: apartment number of children: 0 current occupational status: employed 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 current occupational exposures/hazards: No pets and animals: Yes pets and animals: dog(s) history of recent travel: No sexually active: Yes Smoking Status: Never smoker alcohol intake: never substance use type: does not use well-balanced diet: about half the time caffeine: No eating out: rarely or never during the past year weight has: remained stable what type of physical activity do you participate in: yoga frequency: 3-4 times per week duration: 15-30 minutes/day blayne/pentecostalism: Druze seatbelt use: always do you feel safe at home: Yes additional social history: BF: Toby - Sheet Tester History 1 Elective abortions Hx Para 0 Spontaneous abortions Hx # Term Pregnancies Ectopic pregnancies Hx # Pregnancies Multiple births # of living children HPI 19 wk ob Details: NANY BAPTISTE is a 29 year old who presents for routine OB visit. OB Visit MARCELINA Calculator Estimated Delivery Date Method Current WG Current Estimate 02/09/25 Ultrasound #1 19w 0d Other Estimates 01/28/25 LMP (Certain) 20w 5d Expected Delivery Route/Plan Labor Preferences- CB/BF classes: [] labor support person: [] labor intervention preferences: [] pain management options preferred: [] cut cord/dad catch: [] : [] PP control planned: [] discussed possible routes of delivery and associated risks: [] special requests: [] Specific Issue/Plans Covid status: [] Flu vaccine: [] Tdap vaccine: [] Rhogam: [] LARC form signed: [] Problem list reviewed and updated with the most current plan of care details and appropriate orders placed. Relevant counseling for the gestational age provided. Continue routine care and follow up unless otherwise noted in visit notes/problem list details Initial Weight: Not Recorded Date -???-???-???-???-???-?? ?-???-???-???-???-???-? ??- EGA Weight BP Urine Prot -???-???-???-???-???-?? ?-???-???-???-???-???-? ??- Glucose FHR FuHt Pres Dilation -???-???-???-???-???-?? ?-???-???-???-???-???-? ??- Effaced St Visit Note 07/21/24 -???-???-???-???-???-?? ?-???-???-???-???-???-? ??- 11w 0d 139 lb 126/75 -???-???-???-???-???-?? ?-???-???-???-???-???-? ??- 165 -???-???-???-???-???-?? ?-???-???-???-???-???-? ??- SM- CRL cons with previous US 08/18/24 -???-???-???-???-???-?? ?-???-???-???-???-???-? ??- 15w 0d 140 lb 2 oz 117/79 Negative -???-???-???-???-???-?? ?-???-???-???-???-???-? ??- Negative 153 -???-???-???-???-???-?? ?-???-???-???-???-???-? ??- KW- no vb/lo f/ctx. MFM US ordered. 09/15/24 -???-???-???-???-???-?? ?-???-???-???-???-???-? ??- 19w 0d 143 lb 6 oz 121/85 -???-???-???-???-???-?? ?-???-???-???-???-???-? ??- 155 -???-???-???-???-???-?? ?-???-???-???-???-???-? ??- KW- no vb/cr amping. US today- having a GIRL! ACOG First Trimester First Trimester: Discussed ROS Const Reports system reviewed and no additional complaints, except as documented Eyes Reports system reviewed and no additional complaints, except as documented ENT Reports system reviewed and no additional complaints, except as documented Card Reports system reviewed and no additional complaints, except as documented Resp Reports system reviewed and no additional complaints, except as documented GI Reports system reviewed and no additional complaints, except as documented, Denies nausea and Denies vomiting Reports system (more content not included)... Normal [facility] - Chemistry and C hemistry - challengeOrdered By: Reyna Martinez on 08-18-2024 Glucose Ql (U) Negative [facility] - UrinalysisOrder ed By: Reyna Martinez on 08-18-2024 Protein Ql (U) Negative [facility] Senior Linux Administrator Office Visit Reporton 08-18-2024 Senior Linux Administrator Office Visit Report [facility] [address], [address] [place] [address] OFFICE VISIT Date of Service: 08/18/24 MR#: [id number] Acct: [id number] Name: NANY BAPTISTE Rep #: [id number] : 1995 Provider: WOODROW Gneao ams Age/Sex: 29/F Location: [facility] [place] Status: Signed Intake Vital Signs 07/04/24 14:13 07/21/24 10:22 08/18/24 15:09 Height 5 ft 2 in 5 ft 2 in 5 ft 2 in Weight: 140 lb 2 oz BMI 25.6 BP 117/79 Intake Visit Reasons: 15wk OB Chief Complaint: 15wk OB Creative Assistant Required: No Is patient in pain?: No Allergies No Known Allergies Allergy (Verified 08/18/24 15:07) Medications ???Medication ???Instructions ???Recorded ???Confirmed ???Type docosahexaenoic acid 200 mg mg PO 07/11/24 08/18/24 History capsule ( DHA) Last Menstrual Period: 04/23/24 : No PFSH PFSH Medical History Dermoid cyst Irregular menstrual cycle Family History Grandfather Dementia Social History adopted: No household members: significant other housing: apartment number of children: 0 current occupational status: employed 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 current occupational exposures/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: No pets and animals: Yes pets and animals: dog(s) history of recent travel: No sexually active: Yes Smoking Status: Never smoker alcohol intake: never substance use type: does not use well-balanced diet: about half the time caffeine: No eating out: rarely or never during the past year weight has: remained stable what type of physical activity do you participate in: yoga frequency: 3-4 times per week duration: 15-30 minutes/day blayne/pentecostalism: Druze seatbelt use: always do you feel safe at home: Yes additional social history: BF: Toby - Sheet Tester History 1 Elective abortions Hx Para 0 Spontaneous abortions Hx # Term Pregnancies Ectopic pregnancies Hx # Pregnancies Multiple births # of living children HPI 15wk OB Details: NANY BAPTISTE is a 29 year old who presents for routine OB visit. OB Visit MARCELINA Calculator Estimated Delivery Date Method Current WG Current Estimate 02/09/25 Ultrasound #1 15w 0d Other Estimates 01/28/25 LMP (Certain) 16w 5d Expected Delivery Route/Plan Labor Preferences- CB/BF classes: [] labor support person: [] labor intervention preferences: [] pain management options preferred: [] cut cord/dad catch: [] : [] PP control planned: [] discussed possible routes of delivery and associated risks: [] special requests: [] Specific Issue/Plans Covid status: [] Flu vaccine: [] Tdap vaccine: [] Rhogam: [] LARC form signed: [] Problem list reviewed and updated with the most current plan of care details and appropriate orders placed. Relevant counseling for the gestational age provided. Continue routine care and follow up unless otherwise noted in visit notes/problem list details Initial Weight: Not Recorded Date -???-???-???-???-???-?? ?-???-???-???-???-???-? ??- EGA Weight BP Urine Prot -???-???-???-???-???-?? ?-???-???-???-???-???-? ??- Glucose FHR FuHt Pres Dilation -???-???-???-???-???-?? ?-???-???-???-???-???-? ??- Effaced St Visit Note 07/21/24 -???-???-???-???-???-?? ?-???-???-???-???-???-? ??- 11w 0d 139 lb 126/75 -???-???-???-???-???-?? ?-???-???-???-???-???-? ??- 165 -???-???-???-???-???-?? ?-???-???-???-???-???-? ??- SM- CRL cons with previous US 05/09/07 -???-???-???-???-???-?? ?-???-???-???-???-???-? ??- 15w 0d 140 lb 2 oz 117/79 Negative -???-???-???-???-???-?? ?-???-???-???-???-???-? ??- Negative 153 -???-???-???-???-???-?? ?-???-???-???-???-???-? ??- KW- no vb/lo f/ctx. MFM US ordered. ACOG First Trimester First Trimester: Discussed ROS Const Reports system reviewed and no additional complaints, except as documented Eyes Reports system reviewed and no additional complaints, except as documented ENT Reports system reviewed and no additional complaints, except as documented Card Reports system reviewed and no additional complaints, except as documented Resp Reports system reviewed and no additional complaints, except as documented GI Reports system reviewed and no additional complaints, except as documented, Denies nausea and Denies vomiting Reports system reviewed and no additional complaints, except as documented Musc Reports system reviewed and no additional complaints, except as documented Skin/Breast Reports system reviewed and no additional complaints, except as documented Neuro Yes system r (more content not included)... Normal [facility] Urine Cultureon 2024 URC Below infection leve l. Yeast Like Organism [place] Count 1000-10,000 Mixed Gram Positive Organisms Mixed Gram Positive Organisms MIXC Mixed contaminants. Submit a new specimen if indicated. Normal [facility] Comment on above: Performed By: #### L 509.4006, M100.2200, L7000.1800, L3890.6006, L509.8002, L3890.6301, L100.0100, BTS, L3890.6102 ####[facility] [id number] [place], [address] Chlamydia/GC JAEL aptimaon CHLAMY,NUC ACID Negative Normal Negative [facility] Comment on above: Performed By: #### L 509.4006, M100.2200, L7000.1800, L3890.6006, L509.8002, L3890.6301, L100.0100, BTS, L3890.6102 ####[facility] [id number] [place], [place], [phone] GC BY NUC ACID Negative Normal Negative [facility] Comment on above: Result Comment: Perf ormed at: =G - [facility] [address] [id number] Hydraulic Plumber: Janice Flanagan MD, Phone: [phone] Performed By: #### L 509.4006, M100.2200, L7000.1800, L3890.6006, L509.8002, L3890.6301, L100.0100, BTS, L3890.6102 ####[facility] [id number] [place], [place], [id number] Absolute lymphocyte countOrd ered By: Siria Pandya on 07-21-2024 Lymphocytes Auto (Unsp spec) [#/Vol] 2.62 10*3/uL 0.83-4.51 [facility] Absolute neutrophil countOrd ered By: Siria Pandya on 07-21-2024 Neutrophils (Bld) [#/Vol] 11.1 10*3/uL High 2.0-7.7 [facility] Automated lymphocyte count a s percentage of total leukocytesOrdered By: Siria Pandya on 07-21-2024 Lymphocytes/100 WBC Auto (Unsp spec) 17.8 % Low 19-41 [facility] Basophil percentageOrdered B y: Siria Pandya on 07-21-2024 Basophils/100 WBC (Bld) 0.3 % 0-1 [facility] C. trachomatis rRNA JAEL+prob e Ql (Unsp spec)Ordered By: Siria Pandya on 07-21-2024 Chlamydia DNA (JAEL) Negative Negative [facility] CBC W/Diff, Automatedon Absolute Lymph 2.62 X10 3/uL Normal 0.83-4.51 [facility] Comment on above: Performed By: #### L 509.4006, M100.2200, L7000.1800, L3890.6006, L509.8002, L3890.6301, L100.0100, BTS, L3890.6102 #### [facility] [address] [place], [address] Absolute Neut 11.1 X10 3/uL High 2.0-7.7 [facility] Comment on above: Performed By: #### L 509.4006, M100.2200, L7000.1800, L3890.6006, L509.8002, L3890.6301, L100.0100, BTS, L3890.6102 #### [facility] [address] [place], [address] Basophils/100 WBC (Bld) 0.3 % Normal 0-1 [facility] Comment on above: Performed By: #### L 509.4006, M100.2200, L7000.1800, L3890.6006, L509.8002, L3890.6301, L100.0100, BTS, L3890.6102 #### [facility] [address] [place], [address] Eosinophils/100 WBC (Bld) 0.5 % Normal 0-5 [facility] Comment on above: Performed By: #### L 509.4006, M100.2200, L7000.1800, L3890.6006, L509.8002, L3890.6301, L100.0100, BTS, L3890.6102 #### [facility] [address] [place], [address] ( Erythrocyte distribution width (RBC) [Ratio] 12.6 % Normal 11.6-14.6 [facility] Comment on above: Performed By: #### L 509.4006, M100.2200, L7000.1800, L3890.6006, L509.8002, L3890.6301, L100.0100, BTS, L3890.6102 #### [facility] [address] [place], [address] (799 Hematocrit (Bld) [Volume fraction] 39.1 % Normal 37-47 [facility] Comment on above: Performed By: #### L 509.4006, M100.2200, L7000.1800, L3890.6006, L509.8002, L3890.6301, L100.0100, BTS, L3890.6102 #### [facility] [address] [facility] [place], [address] (006 Hemoglobin (Bld) [Mass/Vol] 13.4 g/dL Normal 12.0-15.0 [facility] Comment on above: Performed By: #### L 509.4006, M100.2200, L7000.1800, L3890.6006, L509.8002, L3890.6301, L100.0100, BTS, L3890.6102 #### [facility] [address] [facility] [place], [address] IG% 0.500 Normal 0.0-0.9 [facility] Comment on above: Result Comment: IG% - Immature Granulocytes (promyelocytes, myelocytes and metamyelocytes) > 1% indicates that a LEFT SHIFT is Present. Performed By: #### L 509.4006, M100.2200, L7000.1800, L3890.6006, L509.8002, L3890.6301, L100.0100, BTS, L3890.6102 #### [facility] [address] [place], [address] Lymphocytes/100 WBC (Bld) 17.8 % Low 19-41 [facility] Comment on above: Performed By: #### L 509.4006, M100.2200, L7000.1800, L3890.6006, L509.8002, L3890.6301, L100.0100, BTS, L3890.6102 #### [facility] [address] [place], [address] MCH (RBC) [Entitic mass] 28.9 pg Normal 27.0-32.0 [facility] Comment on above: Performed By: #### L 509.4006, M100.2200, L7000.1800, L3890.6006, L509.8002, L3890.6301, L100.0100, BTS, L3890.6102 #### [facility] [address] [place], [address] MCHC (RBC) [Mass/Vol] 34.3 g/dL Normal 32-36 [facility] Comment on above: Performed By: #### L 509.4006, M100.2200, L7000.1800, L3890.6006, L509.8002, L3890.6301, L100.0100, BTS, L3890.6102 #### [facility] [address] [place], [address] MCV (RBC) [Entitic vol] 84.4 fL Normal 81-[address] [facility] Comment on above: Performed By: #### L 509.4006, M100.2200, L7000.1800, L3890.6006, L509.8002, L3890.6301, L100.0100, BTS, L3890.6102 #### [facility] [address] [place], [address] Monocytes/100 WBC (Bld) 5.4 % Normal 0-10 [facility] Comment on above: Performed By: #### L 509.4006, M100.2200, L7000.1800, L3890.6006, L509.8002, L3890.6301, L100.0100, BTS, L3890.6102 #### [facility] [address] [place], [address] Neutrophils/100 WBC (Bld) 75.5 % High 47-70 [facility] Comment on above: Performed By: #### L 509.4006, M100.2200, L7000.1800, L3890.6006, L509.8002, L3890.6301, L100.0100, BTS, L3890.6102 #### [facility] [address] [place], [address] Nucleated RBC (Bld) [#/Vol] 0 10*3/uL Normal 0-5 [facility] Comment on above: Performed By: #### L 509.4006, M100.2200, L7000.1800, L3890.6006, L509.8002, L3890.6301, L100.0100, BTS, L3890.6102 #### [facility] [address] [place], [address] Platelet mean volume (Bld) [Entitic vol] 9.9 fL Normal 6.2-12.0 [facility] Comment on above: Performed By: #### L 509.4006, M100.2200, L7000.1800, L3890.6006, L509.8002, L3890.6301, L100.0100, BTS, L3890.6102 #### [facility] [address] [place], [address] Platelets (Bld) [#/Vol] 328 10*3/uL Normal 150-450 [facility] Comment on above: Performed By: #### L 509.4006, M100.2200, L7000.1800, L3890.6006, L509.8002, L3890.6301, L100.0100, BTS, L3890.6102 #### [facility] [address] [place], [address] RBC (Bld) [#/Vol] 4.63 10*6/uL Normal 4.2-5.4 [facility] Comment on above: Performed By: #### L 509.4006, M100.2200, L7000.1800, L3890.6006, L509.8002, L3890.6301, L100.0100, BTS, L3890.6102 #### [facility] [address] [place], [address] RDW SD 38.1 fl Normal 35.1-43.9 [facility] Comment on above: Performed By: #### L 509.4006, M100.2200, L7000.1800, L3890.6006, L509.8002, L3890.6301, L100.0100, BTS, L3890.6102 #### [facility] [address] [place], [address] WBC (Bld) [#/Vol] 14.8 10*3/uL High 4.4-11.0 [facility] Comment on above: Performed By: #### L 509.4006, M100.2200, L7000.1800, L3890.6006, L509.8002, L3890.6301, L100.0100, BTS, L3890.6102 #### [facility] [address] [place], [address] Chlamydia trachomatis rRNA d etection by probe and target amplification methodOrdered By: Siria Pandya on 07-21-2024 C. trachomatis rRNA JAEL+probe Ql (Unsp spec) Negative Negative [facility] Eosinophil percentageOrdered By: Siria Pandya on 07-21-2024 Eosinophils/100 WBC (Bld) 0.5 % 0-5 [facility] Erythrocyte distribution wid th (RBC) [Ratio]Ordered By: Siria Jamaclemente on 07-21-2024 Erythrocyte distribution width (RBC) [Entitic vol] 38.1 fL 35.1-43.9 [facility] Erythrocyte distribution wid th ratioOrdered By: Siria Pandya on 07-21-2024 Erythrocyte distribution width (RBC) [Ratio] 12.6 % 11.6-14.6 [facility] Erythrocyte distribution wid th standard deviationOrdered By: Siria Jamaclemente on 07-21-2024 Erythrocyte distribution width (RBC) [Ratio] 38.1 fl 35.1-43.9 [facility] HBV surface Ag Ql (S)Ordered By: Siria Jamaclemente on 07-21-2024 Hepatitis B Surface Antigen Non-Reactive Nonreactive [facility] Comment on above: Reactive: Presumptiv e evidence of HBV. Repeatedly reactive samples must be confirmed using a neutralization test (ElecABSs HBsAg Confirmatory Test)Non-Reactive: HBsAg not detected; does not exclude the possibility of exposure to HBV HIVon 07-21-2024 HIV Non-Reactive Normal Nonreactive [facility] Comment on above: Result Comment: Non- Reactive Reactive Repeatedly reactive samples must be confirmed according to CDC recommended confirmatory algorithms. The subresults for either HIVAG or AHIV can be used as an aid in the selection of the confirmation algorithm for reactive samples. Send out specimens with Reactive results to [facility] for confirmation. Order the HIV antibody detection and differentiation: lc#[id number] Performed By: #### L 509.4006, M100.2200, L7000.1800, L3890.6006, L509.8002, L3890.6301, L100.0100, BTS, L3890.6102 #### [facility] [address] [place], [address] Hematocrit Auto (Bld) [Volum e fraction]Ordered By: Siria Ya on 07-21-2024 Hematocrit (Bld) [Volume fraction] 39.1 % 37-47 [facility] Hemoglobin measurementOrdere d By: Siriajustin Clarkivania on 07-21-2024 Hemoglobin (Bld) [Mass/Vol] 13.4 g/dL 12.0-15.0 [facility] Hepatitis C Antibodyon 07-21 Hepatitis C Ab Non-Reactive Normal Nonreactive [facility] Comment on above: Result Comment: Reac tive: Presumptive evidence of antibodies to HCV. Follow CDC recommendations for supplemental testing. Non-Reactive: Antibodies to HCV were not detected; does not exclude the possibility of exposure to HCV Reactive Results are presumptive evidence of antibodies to HCV. Follow CDC recommendations for supplemental testing. Order confirmation testing: HCV Quant by PCR testing - HCVPCR lc#[id number] Non Reactive: < 0.8 Equivocal: >/= 0.8 to < 1.0 Reactive: >/= 1.0 The CDC requires that a reactive/equivocal HCV antibody result be sent out for confirmation. HCV Quant by PCR testing. Performed By: #### L 509.4006, M100.2200, L7000.1800, L3890.6006, L509.8002, L3890.6301, L100.0100, BTS, L3890.6102 #### [facility] [address] [place], [address] Hepatitis C antibodyOrdered By: Siria Pandya on 07-21-2024 Hepatitis C Antibody Non-Reactive Nonreactive [facility] Comment on above: Reactive: Presumptiv e evidence of antibodies to HCV. Follow CDC recommendations for supplemental testing.Non-Reactive: Antibodies to HCV were not detected; does not exclude the possibility of exposure to HCVReactive Results are presumptive evidence of antibodies to HCV. Follow CDC recommendations for supplemental testing.Order confirmation testing: HCV Quant by PCR testing - HCVPCR lc#[id number] Non Reactive: < 0.8 Equivocal: >/= 0.8 to < 1.0 Reactive: >/= 1.0The CDC requires that a reactive/equivocal HCV antibody result be sent out for confirmation. HCV Quant by PCR testing. Immature granulocytes/100 WB C Auto (Bld)Ordered By: Siria Pandya on 07-21-2024 Immature granulocytes/100 WBC (Bld) 0.500 % 0.0-0.9 [facility] Comment on above: IG% - Immature Granu locytes (promyelocytes, myelocytes and metamyelocytes) > 1% indicates that a LEFT SHIFT is Present. L3890.6102on 07-21-2024 HEP B Surf Ag Non-Reactive Normal Nonreactive [facility] Comment on above: Result Comment: Reac tive: Presumptive evidence of HBV. Repeatedly reactive samples must be confirmed using a neutralization test ([employer] HBsAg Confirmatory Test) Non-Reactive: HBsAg not detected; does not exclude the possibility of exposure to HBV Performed By: #### L 509.4006, M100.2200, L7000.1800, L3890.6006, L509.8002, L3890.6301, L100.0100, BTS, L3890.6102 #### [facility] [address] [facility] [place], [place], [address] L509.4006on 07-21-2024 Rubella IgG REAC Normal Nonreactive [facility] Comment on above: Result Comment: Anti body Result: Interpretation Non-Reactive: Non-Immune Reactive: Immune The following results were obtained with the Ele[employer]ys Rubella IgG assay. Results from assays of other manufacturers cannot be used interchangeably. Performed By: #### L 509.4006, M100.2200, L7000.1800, L3890.6006, L509.8002, L3890.6301, L100.0100, BTS, L3890.6102 #### [facility] [address] [place], [address] Laboratory - Microbiology an d Antimicrobial susceptibilityOrdered By: Siria Pandya on 07-21-2024 HBV surface Ag Ql (S) Non-Reactive Nonreactive [facility] Comment on above: Reactive: Presumptiv e evidence of HBV. Repeatedly reactive samples must be confirmed using a neutralization test ([employer]ys HBsAg Confirmatory Test)Non-Reactive: HBsAg not detected; does not exclude the possibility of exposure to HBV Lymphocytes Auto (Unsp spec) [#/Vol]Ordered By: Siria Pandya on 07-21-2024 Lymphocytes (Bld) [#/Vol] 2.62 10*3/uL 0.83-4.51 [facility] Lymphocytes/100 WBC Auto (Un sp spec)Ordered By: Siria Pandya on 07-21-2024 Lymphocytes/100 WBC (Bld) 17.8 % Low 19-41 [facility] MCV (mean corpuscular volume ) determinationOrdered By: Siria Pandya on 07-21-2024 MCV (RBC) [Entitic vol] 84.4 fL 81-99 [facility] Mean corpuscular hemoglobin (MCH) determinationOrdered By: Siria Pandya on 07-21-2024 MCH (RBC) [Entitic mass] 28.9 pg 27.0-32.0 [facility] Mean corpuscular hemoglobin concentration (MCHC) determinationOrdered By: Siria Pandya on 07-21-2024 MCHC (RBC) [Mass/Vol] 34.3 g/dL 32-36 [facility] Mean platelet volume determi nationOrdered By: Siria Pandya on 07-21-2024 Platelet mean volume (Bld) [Entitic vol] 9.9 fL 6.2-12.0 [facility] Monocyte percentageOrdered B y: Siria Pandya on 07-21-2024 Monocytes/100 WBC (Bld) 5.4 % 0-10 [facility] Neisseria gonorrhoeae nuclei c acid detection by amplified probe techniqueOrdered By: Siria Pandya on 07-21-2024 N. gonorrhoeae DNA JAEL+probe Ql (Unsp spec) Negative Negative [facility] Comment on above: Performed at: = [facility] [address] [id number] Director: Janice Flanagan MD, Phone: [phone] Neutrophil percentageOrdered By: Siria Pandya on 07-21-2024 Neutrophils/100 WBC (Bld) 75.5 % High 47-70 [facility] No Panel InformationOrdered By: Siria Pandya on 07-21-2024 HIV (1&2) Antibody Non-Reactive Nonreactive [facility] Comment on above: Non-ReactiveReactive Repeatedly reactive samples must be confirmed according to CDC recommended confirmatory algorithms. The subresults for either HIVAG or AHIV can be used as an aid in the selection of the confirmation algorithm for reactive samples.Send out specimens with Reactive results to [facility] for confirmation.Order the HIV antibody detection and differentiation: #[id number] Nucleated red blood cell per centageOrdered By: Siria Pandya on 07-21-2024 Nucleated RBC/100 WBC (Bld) [Ratio] 0 % 0-5 [facility] Senior Linux Administrator Office Visit Reporton 07-21-2024 Senior Linux Administrator Office Visit Report [facility] [address], [address] [place] [address] OFFICE VISIT Date of Service: 07/21/24 MR#: [id number] Acct: [id number] Name: NANY BAPTISTE Rep #: [id number] : 1995 Provider: Dr. Siria langston MD Age/Sex: 28/F Location: [facility] Status: Signed Intake Vital Signs 05/02/24 14:28 07/04/24 14:13 07/21/24 10:22 Height 5 ft 2 in 5 ft 2 in 5 ft 2 in Weight: 139 lb BMI 25.4 BP 126/75 H Intake Visit Reasons: NOB: LMP 1/8 -> US 07/03 8w3d; MARCELINA 02/09 Creative Assistant Required: No Is patient in pain?: No Allergies No Known Allergies Allergy (Verified 07/21/24 10:23) Medications ???Medication ???Instructions ???Recorded ???Confirmed ???Type docosahexaenoic acid 200 mg mg PO 07/11/24 07/21/24 History capsule ( DHA) Last Menstrual Period: 04/23/24 Zika: Zika virus screening: Negative : No PFSH PFSH Medical History Dermoid cyst Irregular menstrual cycle Family History Grandfather Dementia Social History adopted: No household members: significant other housing: apartment number of children: 0 current occupational status: employed 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 current occupational exposures/hazards: No pets and animals: Yes pets and animals: dog(s) history of recent travel: No sexually active: Yes Smoking Status: Never smoker alcohol intake: never substance use type: does not use well-balanced diet: about half the time caffeine: No eating out: rarely or never during the past year weight has: remained stable what type of physical activity do you participate in: yoga frequency: 3-4 times per week duration: 15-30 minutes/day blayne/pentecostalism: Druze seatbelt use: always do you feel safe at home: Yes additional social history: BF: Toby - Sheet Tester History 1 Elective abortions Hx Para 0 Spontaneous abortions Hx # Term Pregnancies Ectopic pregnancies Hx # Pregnancies Multiple births # of living children HPI NOB: LMP 04/23 -> US 07/03 8w3d; MARCELINA 02/09 Details: NANY BAPTISTE is a 28 year old who presents for New OB visit. OB Visit MARCELINA Calculator Estimated Delivery Date Method Current WG Current Estimate 02/09/25 Ultrasound #1 11w 0d Other Estimates 01/28/25 LMP (Certain) 12w 5d Estimated Due Date: 02/09/25 Initial Weight: Not Recorded Date -???-???-???-???-???-?? ?-???-???-???-???-???-? ??- EGA Weight BP Urine Prot -???-???-???-???-???-?? ?-???-???-???-???-???-? ??- Glucose FHR FuHt Pres Dilation -???-???-???-???-???-?? ?-???-???-???-???-???-? ??- Effaced St Visit Note 07/21/24 -???-???-???-???-???-?? ?-???-???-???-???-???-? ??- 11w 0d 139 lb 126/75 -???-???-???-???-???-?? ?-???-???-???-???-???-? ??- 165 -???-???-???-???-???-?? ?-???-???-???-???-???-? ??- SM- CRL cons with previous US Menstrual History Last Menstrual Period: 04/23/24 Reported LMP: definite Normal amount/duration: No (Always irregular) Frequency in days: Very irregular On hormonal BC at conception: No Antepartum Record Genetic Screening: Congenital Heart Defect: Other, Neural Tube Defect: Other, Hemoglobinopathy Or Carrier: Other, Cystic Fibrosis: Other, Chromosome Abnormality: Other, Negro-Sachs: Other, Hemophilia: Other, Intellectual Disability/Autism: Other, Recurrent Loss/Stillbirth: Other, Other Structural Defect: Other, Other Genetic Disease: Other and Maternal Metabolic Disorder: Other Infection History: Live with someone with TB or Exposed to TB: No, Patient or Partner has history of Genital Herpes: No, Rash or Viral illness since last mentrual period: No, Prior GBS-Infected child: No, History of STD: No, HIV Infection: No, History of Hepatitis: No, Recent travel outside of [place]: No, Concern for hepatitis exposure: No, Varicella immune: Yes (Had vaccine) and Covid Vaccinated: No Medical History Medical History: Negative: Diabetes, Hypertension, Heart disease, Auto-immune disorder, Kidney disease/UTI, Neurologic/epilepsy, Psychiatric, Depression/ depression, Hepatitis/liver disease, Varicosities/phlebitis, Thyroid dysfunction, Trauma/domestic violence, History of blood transfusions, D (Rh) Sensitized, Pulmonary (e.g.,TB,Asthma), Seasonal allergies, Drug/latex allergies/reactions, Breast, Concaving Machine Operator surgery, Operations/hospitalizat ions, Anesthetic complications, History of abnormal pap, Uterine anomaly/paul, Infertility, Anti-retroviral treatment, Relevant family history and Other ACOG First Trimester First Trimester: Discussed ROS Const Reports system reviewed and no additional (more content not included)... Normal [facility] Platelet countOrdered By: Cassie Pandya on 07-21-2024 Platelets (Bld) [#/Vol] 328 10*3/uL 150-450 [facility] RBC Auto (Bld) [#/Vol]Ordere d By: Siria Pandya on 07-21-2024 RBC (Bld) [#/Vol] 4.63 10*6/uL 4.2-5.4 [facility] Rubella immune status determ ination by IgG antibody assayOrdered By: Siria Pandya on 07-21-2024 Rubella IgG Antibody REAC Nonreactive [facility] Comment on above: Antibody Result: Int erpretationNon-Reactive: Non-ImmuneReactive: ImmuneThe following results were obtained with the [employer] Rubella IgG assay. Results from assays of other manufacturers cannot be used interchangeably. Syphilis Antibodieson 2024 Syphilis Abs Non-Reactive Normal Nonreactive [facility] Comment on above: Performed By: #### L 509.4006, M100.2200, L7000.1800, L3890.6006, L509.8002, L3890.6301, L100.0100, BTS, L3890.6102 #### [facility] [address] [place], [address] T. pallidum abOrdered By: Cassie Pandya on 07-21-2024 Syphilis Total Antibody Non-Reactive Nonreactiv e [facility] Type AND Screenon 07-21-2024 Ab SCREEN GEL Negative Normal [facility] Comment on above: Order Comment: HVAG Performed By: #### L 509.4006, M100.2200, L7000.1800, L3890.6006, L509.8002, L3890.6301, L100.0100, BTS, L3890.6102 ####[facility] [id number] [place], [place], [id number] Urine cultureOrdered By: Marv Pandya on 07-21-2024 Bacteria identified Cx Nom (U) Yeast Like Organism Abnormal [facility] Bacteria identified Cx Nom (U) Positive Abnormal [facility] White blood cell (WBC) count Ordered By: Siria Pandya on 07-21-2024 WBC (Bld) [#/Vol] 14.8 10*3/uL High 4.4-11.0 [facility] Transvaginal w/Preg USon Transvaginal w/Preg US [facility] [address] [place] [address] Transvaginal w/Preg US MR#: [id number] Acct: [id number] Name: NANY BAPTISTE Rep #: [id number] : 1995 F 28 From: Seun Bolnad MD PCP: Gayle Mcclain CNM Status: REG CLI Study: Transvaginal w/Preg US Date of Exam: 07/03/24 Exam# [id number] Ordering Dr: Reyna Martinez CNM PROCEDURE: TRANSVAGINAL W/PREG US (USTVAGP), 07/03/2024 REASON FOR EXAM: LLQ PAIN, HX OVARIAN CYST. Previously established dates unknown. TECHNIQUE: Grayscale and color/spectral doppler transabdominal and transvaginal pelvic ultrasound was performed with attention to the uterus and associated early gestation. COMPARISON: 05/15/2023 ; note that images only are available for review, the report is not available at the time of the dictation. FINDINGS: A single intrauterine gestational sac is identified. Gestational sac: 4.4 x 2.6 x 4.9 cm for mean sac diameter 4.0 cm, corresponding to 9 weeks 3 days. Emmet-rump length: 20 mm, corresponding to 8 weeks 3 days. Yolk sac: Present. Cardiac activity: 170 bpm, regular. Estimated delivery date (MARCELINA): 02/09/2025 by CRL. Uterus: Otherwise unremarkable, 10.2 x 8.2 x 6.2 cm. Cervix: Unremarkable. Right ovary: 6.6 x 5.2 x 3.6 cm (estimated volume 63.7 mL). Enlarged by mixed echogenicity mostly solid-appearing lesion with some associated shadowing measuring 4.4 x 4.1 x 3.1 cm, present previously and measuring 3.7 x 3.0 x 4.2 cm on 05/15/2023 Left ovary: 3.8 x 2.5 x 2.1 cm (estimated volume 10.4 mL), unremarkable. Other: No significant visualized pelvic free fluid. US/Transvaginal w/Preg US IMPRESSION: 1. Single viable intrauterine gestational sac with an estimated gestational age of 8 weeks 3 days corresponding to MARCELINA 02/09/2025. Previously established dates not provided. Correlate with clinical factors. 2. Borderline tachycardia is nonspecific. Recommend clinical follow-up. Additionally recommend routine complete anatomic survey at 20 weeks. 3. Slightly enlarged mostly solid-appearing RIGHT ovarian lesion which may reflect a dermoid (O-RADS 2). If not surgically excised, recommend follow-up ultrasound in 12 months per ACR O-RADS recommendations. Note that this places the patient at risk for future ovarian torsion. 4. Additional description as above. Reading Location: [id number] CC: WOODROW Martinez; WOODROW Mcclain Pharmaceutical Process Engineer: Signed Normal [facility] Senior Linux Administrator Office Visit Reporton 05-02-2024 Senior Linux Administrator Office Visit Report [facility] [address], [address] [place] [address] OFFICE VISIT Date of Service: 05/02/24 MR#: [id number] Acct: [id number] Name: NANY BAPTISTE Rep #: [id number] : 1995 Provider: WOODROW leo Age/Sex: 28/F Location: [facility] [place] Status: Signed Intake Vital Signs 05/02/23 13:47 02/28/24 13:30 05/02/24 14:28 Height 5 ft 2 in 5 ft 2 in 5 ft 2 in Weight: 146 lb BMI 26.6 BP 123/75 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) Creative Assistant Required: No Is patient in pain?: No Allergies No Known Allergies Allergy (Verified 05/02/24 14:27) Medications ???Medication ???Instructions ???Recorded ???Confirmed ???Type norethindrone (contraceptive) 0.35 0.35 mg PO QDAY #84 tabs 02/27/24 05/02/24 Rx mg tablet (Natasha) Post menopausal: No Patient : No : No Control Method: ocp PFSH Family History Grandfather Dementia Social History adopted: No household members: none housing: apartment current occupational status: employed current occupation: [employer] current occupational exposures/hazards: No pets and animals: Yes pets and animals: dog(s) sexually active: No Smoking Status: Never smoker alcohol intake: never caffeine: No what type of physical activity do you participate in: yoga frequency: 5-6 times per week seatbelt use: always do you feel safe at home: Yes HPI Encounter for routine gynecological examination Details: NANY BAPTISTE is a 28 year old who presents for annual exam. continues to have irregular bleeding. LMP:8, heavy bleeding on 1/3 then spotting . maxi pad q2-3 hours for 3 days, denies blood clots. declines ocps. Last PAP: 2022; normal History of abnormal PAP: no Last mammogram: age 42 History of abnormal mammogram: n/a Colon cancer screening: age 47 Other preventative health care screenings: Exam Const General: cooperative, healthy appearing, comfortable and no acute distress Neck Neck: normal visual inspection, full ROM, no lymphadenopathy and supple Thyroid: thyroid normal Chest Chest palpation inspection: normal inspection of the chest Breast inspection: normal inspection of the breasts Breast palpation: normal palpation of the breasts Resp Effort Inspection: normal respiratory effort, able to speak in complete sentences and symmetric chest movement Cardio Rhythm: regular rhythm GI Inspection: normal to inspection Palpation: soft and no hepatosplenomegaly External Female Exam: normal external appearance and normal appearance of the urethra Urethra: normal appearance of the urethra Speculum Exam - Vagina: normal appearance of the vagina and normal vaginal discharge Speculum Exam - Cervix: normal appearance of the cervix Bimanual Exam- Vagina Uterus: normal bimanual exam, normal palpation and uterine size normal Bimanual Exam- Adnexa, other: normal adnexae, adnexae mobile, no masses and normal Pelvic Support: normal Skin General: no rashes or lesions noted Psych Appearance: grossly normal and well kempt Coding Level of Care Code Off vis,est,prev 18-39yrs Diagnoses Encounter for routine gynecological examination Z01.419 Irregular menstrual cycle N92.6 Dermoid cyst D36.9 Women's annual routine gynecological examination Z01.419 Assessment and Plan Assessment and Plan (1) Encounter for routine gynecological examination: (2) Irregular menstrual cycle: Status: Acute Comment: CBC, tsh/free t4 normal. repeat us in 3 months if no improvement. desires to try hormonal balancing first. f/u in 6 months. declines POP at this time. (3) Dermoid cyst: Status: Acute Comment: 4.2cm left dermoid ovarian cyst. recommended surgical consult. consulted with JV, agrees can medically manage as no symptoms. to obtain repeat us in 3 months. (4) Women's annual routine gynecological examination: Status: Acute Orders: Orders Pelvic w/ Transvaginal 3 Months N91.2 - Amenorrhea, unspecified 05/09/24 1547 Date Gayle Mcclain [facility] Cosigner Signature: Date (if applicable) CC: Normal [facility] Chlamydia trachomatis rRNA d etection by probe and target amplification methodOrdered By: Gayle Mcclain on 05-02-2023 C. trachomatis rRNA JAEL+probe Ql (Unsp spec) Negative Negative [facility] Laboratory - Microbiology an d Antimicrobial susceptibilityOrdered By: Gayle Mcclain on 05-02-2023 N. gonorrhoeae DNA JAEL+probe Ql (Unsp spec) Negative Negative [facility] Comment on above: Performed at: =[facility] [place] [id number] Director: Janice Flanagan MD, Phone: [phone] Absolute lymphocyte countOrd ered By: Gayle Mcclani on 02-09-2023 Lymphocytes Auto (Unsp spec) [#/Vol] 3.32 10*3/uL 0.83-4.51 [facility] Basophil percentageOrdered B y: Gayle Mcclain on 02-09-2023 Basophils/100 WBC (Bld) 0.5 % 0-1 [facility] Eosinophils/100 WBC (Bld) 0.9 % 0-5 [facility] Neutrophils (Bld) [#/Vol] 7.5 10*3/uL 2.0-7.7 [facility] Neutrophils/100 WBC (Bld) 63.7 % 47-70 [facility] WBC (Bld) [#/Vol] 11.7 10*3/uL 4.4-11.0 [facility] Blood erythrocytes count (nu mber/volume)Ordered By: Gayle Mcclain on 02-09-2023 RBC (Bld) [#/Vol] 4.76 10*6/uL 4.2-5.4 [facility] Blood hemoglobin measurement (mass/volume)Ordered By: Gayle Mcclain on 02-09-2023 Hemoglobin (Bld) [Mass/Vol] 13.4 g/dL 12.0-15.0 [facility] Blood lymphocytes/100 leukoc ytesOrdered By: Gayle Mcclain on 02-09-2023 Lymphocytes/100 WBC (Bld) 28.4 % 19-41 [facility] Blood monocytes/100 leukocyt esOrdered By: Gayle Mcclain on 02-09-2023 Monocytes/100 WBC (Bld) 6.0 % 0-10 [facility] Blood platelet mean volumeOr dered By: Gayle Mcclain on 02-09-2023 Platelet mean volume (Bld) [Entitic vol] 9.2 fL 6.2-12.0 [facility] Determination of erythrocyte mean corpuscular volume (MCV)Ordered By: Gayle Mcclain on 02-09-2023 MCV (RBC) [Entitic vol] 86.3 fL 81-99 [facility] Hematocrit Auto (Bld) [Volum e fraction]Ordered By: Gayle Mcclain on 02-09-2023 Hematocrit (Bld) [Volume fraction] 41.1 % 37-47 [facility] Laboratory - Chemistry and C hemistry - challengeOrdered By: Gayle Mcclain on 02-09-2023 Free T4 [Mass/Vol] 0.89 ng/dL 0.76-1.[address] [facility] Laboratory - Hematology and Cell countsOrdered By: Gayle Mcclain on 02-09-2023 Erythrocyte distribution width (RBC) [Entitic vol] 38.6 fL 35.1-43.9 [facility] Erythrocyte distribution width (RBC) [Ratio] 12.2 % 11.6-14.6 [facility] Immature granulocytes/100 WBC (Bld) 0.500 % 0.0-0.9 [facility] Comment on above: IG% - Immature Granu locytes (promyelocytes, myelocytes and metamyelocytes) > 1% indicates that a LEFT SHIFT is Present. MCH (RBC) [Entitic mass] 28.2 pg 27.0-32.0 [facility] Nucleated RBC/100 WBC (Bld) [Ratio] 0 % 0-5 [facility] MCHC Auto (RBC) [Mass/Vol]Or dered By: Gayle Mcclain on 02-09-2023 MCHC (RBC) [Mass/Vol] 32.6 g/dL 32-36 [facility] No Panel InformationOrdered By: Gayle Mcclain on 02-09-2023 Thyroid Stimulating Hormone (TSH) 1.45 uIU/mL 0.358-3.74 [facility] Platelets bldOrdered By: Mary Mcclain on 02-09-2023 Platelets (Bld) [#/Vol] 405 10*3/uL 150-450 [facility] CNOVon 08-04-2022 CNOV Office Visit (FAVC ) NANY BAPTISTE ([id number]) 1995 F Date Time Provider Department 08/04/22 1:40 PM RADHA MEMBRENO [facility] During your visit today, we recorded the following information about you: Temperature Pulse Blood pressure Weight 97.9 degrees 77/minute 110/74 59 kg Height Last Period 1.59 m 07/31/22 Radha Membreno MD 08/04/2022 2:07 PM Signed SUBJECTIVE: Nany Baptiste is a 27 year [...] (97.9 ?F) (Temporal) Ht 159 cm (5' 2.6) Wt 59 kg (130 lb) LMP 07/31/2022 [...] REVIEW OF TESTS: Labs Radha Membreno MD Referring Provider: SELF [200] Allergies As of Date: 08/04/2022 (No Known Allergies) Date Reviewed: 08/04/2022 Reviewed by: Isabelle Mota LPN - Fully Assessed Reason for Visit: Follow Up [171] Primary Visit Diagnosis:Other chest pain [R07.89] Order(s):DEPRESSION SCREENING/ASSESSMENT [[id number]] Order #: [id number]: 1 STRESS ECHO TREADMILL [[id number]] Order #: [id number]: 1 FUTURE perflutren lipid microspheres 1.3 mL in NaCl (PF) 0.9% 10 mL injection (DEFINITY)Disp: Rfl: sodium chloride 0.9 % (flush) 10 mL (BD POSIFLUSH)Disp: Rfl: Facility-Administered Medications as of 08/04/2022 - perflutren lipid microspheres 1.3 mL in NaCl (PF) 0.9% 10 mL injection (DEFINITY) - sodium chloride 0.9 % (flush) 10 mL (BD POSIFLUSH) Problem List As Of Date: 08/04/2022 (None) Prescriptions ordered this encounter Disp Refills Start End PERFLUTREN LIPID MICROSPHERES 1.1 MG* 08/04/2022 11/03/2023 Route: INTRAVENOUS SODIUM CHLORIDE 0.9 % (FLUSH) INJECT* 08/04/2022 11/03/2023 Route: INTRAVENOUS Medications Discontinued During This Encounter Prescriptions - norgestrel-ethinyl estradiol (CRYSELLE) 0.3-30 mg-mcg per tablet (Discontinued) Reported on 08/04/2022 Disposition: Return in about 3 months (around 11/03/2022). Follow-up and Disposition History for Encounter Date Provider Department Center 08/04/2022 [id number], NEI*[facility] Encounter Status:Closed by RADHA MEMBRENO on 08/04/[address] [facility] Cervical or vagninal specime n microscopic examination by cytology stain (reported asOrdered By: Gayle Mcclain on 04-24-2022 Cytology report Cyto stain Doc (Cvx/Vag) Comment . [facility] Comment on above: The Pap smear is a s creening test designed to aid in thedetection of premalignant and malignant conditions of theuterine cervix. It is not a diagnostic procedure andshould not be used as the sole means of detecting cervicalcancer. Both false-positive and false-negative reports dooccur. Laboratory - CytologyOrdered By: Gayle Mcclain on 04-24-2022 Medical Laboratory Technical Officer Cyto stain Nom (Cvx/Vag) [ID] Comment . [facility] Comment on above: Rin Gandara, Cyto technologist (ASCP) Laboratory - Miscellaneous t estsOrdered By: Gayle Mcclain on 04-24-2022 Service comment (Unsp spec) [Interp] Comment . [facility] Comment on above: This liquid based Th inPrep(R) pap test was screened withthe use of an image guided system. Service comment (Unsp spec) [Interp] . . [facility] No Panel InformationOrdered By: Gayle Mcclain on 04-24-2022 Human Papillomavirus Screen Comment . [facility] Comment on above: The HPV DNA reflex c laureano were not met with this specimenresult therefore, no HPV testing was performed.Performed at: - [address] [id number] Director: Janice Flanagan MD, Phone: [phone] Pap Smear QC Review Comment . [facility] Comment on above: Aleida Quinones, Cytot echnologist (ASCP) Pathology report final diagnosis Narrative Comment . [facility] Comment on above: NEGATIVE FOR INTRAEP ITHELIAL LESION OR MALIGNANCY.THIS SPECIMEN WAS RESCREENED PART OF OUR PARENTING SKILLS INSTRUCTOR PROGRAM. Office Visit (Family Medicin e)on 03-24-2022 Follow-up visit Diagnoses/Problems Chest heaviness (786.59) (R07.89) Body mass index (BMI) of 23.0 to 23.9 in adult (V85.1) (Z68.23) Orders Chest heaviness Start: Omeprazole 40 MG Oral Capsule Delayed Release; TAKE 1 CAPSULE Daily SocHx: Never a smoker Tobacco Use Screening; Status:Complete; Done: [id number] Chief Complaint new pt, c/o left side chest pain was seen in ER Sat., brain fog, AM nausea,passed out in Jan , of concussion. History of Present Illness Patient is here to establish care and to discuss following acute concerns. Chest pain: Was seen in the ED with normal evaluation. No acute findings were noticed. left sided - heavy weight sensation. Has shortness of breath. normally in the morning for the first 4 hours. Last three or four days has been having heavy feeling. Feels nauseous in the morning. this resolves within couple of hours. Syncope: has had these episodes as a freshmen to college time. then resolved without symptoms for about 2 years. About two months ago she had most recent episodes. Has been having brain fog episodes since then. Initially was all day and gradually improved. However, in the last week this has improved. Feels hot - hot flash before the syncope episode. Then she feels nauseous. Not associated with meals. Has been on control for the last three years. She had test which came back negative. 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 Wonders if she has anxiety attacks. Her friends have brought this up. But she herself thinks that she not under stress. reports that she in a better job,with less stress. She feels safe at home and work. Plan: differential include vasovagal, POTS, orthostatic, anxiety, arrhythmia; abdominal pain and nausea- gastritis, gallstones, etc. Pulse has not significantly raised with change in position. No significant blood pressure change noticed with change in position. She will try antacid. Requested her to send previous lab testing that was done. We may consider holter monitor if patient endorses palpitations. Follow up in 2-4 weeks. Review of Systems ROS negative except discussed above in HPI. Surgical History No history of surgery Family History Family history of POTS (postural orthostatic tachycardia syndrome) Family history of Alzheimer's disease (V17.2) (Z82.0) Social History Never a smoker Allergies No Known Drug Allergies Recorded By: Tomeka Mota; 03/24/2022 1:30:54 PM Current Meds Medication NameInstructionReason Low-Ogestrel 0.3-30 MG-MCG Oral Tablet Vitals Vital Signs Recorded: [id number] 01:32PM Heart Rate72 Frebiwda278 Xrqfxhwuh93 Height5 ft 2.60 in Nijndr042 lb 15.94 oz BMI Wwbwoneejp97.5 kg/m2 BSA Calculated1.61 Tobacco Useb) No PHQ-2 #1. Over the last 2 weeks have you felt down, depressed or hopeless? (If yes, answer PHQ-9 below)No PHQ-2 #2. Over the last 2 weeks have you felt little interest or pleasure in doing things? (If yes, answer PHQ-9 below)No Falls Screening (Age 18+)b) One or more falls in the last year Physical Exam Constitutional: Alert and in no acute distress. Well developed, well nourished. Neck: No neck mass was observed. Supple. Thyroid not enlarged and there were no palpable thyroid nodules. Cardiovascular: Heart rate and rhythm were normal, normal S1 and S2, no gallops, no murmurs and no pericardial rub. Pulmonary: Clear bilateral breath sounds. Psychiatric: Judgment and insight: Intact. Mood and affect: Normal. 'Scores and Scales' Signatures Electronically signed by : Eloy Lowery MD MPH; Mar 26 2022 9:08PM EST (Author) Normal [facility] Tobacco Screening.on 022 Adult depression screening assessment No [facility] Work Phone: Fall risk assessment b) One or more fall s in the last year [facility] Work Phone: Tobacco use status [facility] b) No [facility] Work Phone: XR CHEST PA/APon 03-18-2022 XR CHEST PA/AP EXAMINATION: XR CHEST PA/AP 03/18/2022 8:51 am HISTORY: ORDERING SYSTEM PROVIDED HISTORY: chest pain, TECHNOLOGIST PROVIDED HISTORY: Illness/Other Reason for exam: chest pain Cancer History: n Surgery, RadiationHistory: n Encounter Type: Initial Additional signs and symptoms: n ORDERING SYSTEM PROVIDED DIAGNOSIS CODES: COMPARISON: None FINDINGS: Lines and tubes: None Lungs: No pneumothorax, pleural effusion, or consolidation. Cardiomediastinal silhouette: No cardiomegaly. Bones and soft tissues: No acute findings. IMPRESSION: No acute cardiopulmonary findings. Workstation ID: [id number] Dictated by: LIZBETH MERRILL on Sat Mar 18, 2022 10:10:00 AM EST Transcribed by: LIZBETH MERRILL on Sat Mar 18, 2022 10:10:00 AM EST Finalized by: LIZBETH MERRILL on Sat Mar 18, 2022 10:10:[address] [facility] Comment on above: Order Comment: Injur y/Trauma or Illness?:Illness/Other How long have you had these symptoms (acute/chronic)?:Acute Reason for exam?:chest pain History of cancer?:n Surgeries, chemotherapy, or radiation?:n Type of Exam?:Initial Additional signs and symptoms?:n CBC panel Auto (Bld)on 02-16 Erythrocyte distribution width (RBC) [Ratio] 13.2 % Normal 11.5-15.0 [facility] Comment on above: Order Comment: Speci men Type: BLOOD SPECIMEN Ordering Facility: [facility] Address: [address] [address] Performed By: #### 5 8410-2 #### [facility] CLIA [id number] [facility] [facility] Hematocrit (Bld) [Volume fraction] 40.8 % Normal 36.0-46.0 [facility] Comment on above: Order Comment: Speci men Type: BLOOD SPECIMEN Ordering Facility: [facility] Address: [address] [address] Performed By: #### 5 8410-2 #### [facility] CLIA [id number] [address] [place] [address] [place] Hemoglobin (Bld) [Mass/Vol] 13.3 g/dL Normal 11.5-15.5 [facility] Comment on above: Order Comment: Speci men Type: BLOOD SPECIMEN Ordering Facility: [facility] Address: [address] [address] Performed By: #### 5 8410-2 #### [facility] CLIA [id number] [address] [place] [address] [place] MCH (RBC) [Entitic mass] 27.3 pg Normal 26.0-34.0 [facility] Comment on above: Order Comment: Speci men Type: BLOOD SPECIMEN Ordering Facility: [facility] Address: [address] [address] Performed By: #### 5 8410-2 #### [facility] CLIA [id number] [address] [place] [address] [place] MCHC (RBC) [Mass/Vol] 32.6 g/dL Normal 30.5-36.0 [facility] Comment on above: Order Comment: Speci men Type: BLOOD SPECIMEN Ordering Facility: [facility] Address: [address] [address] Performed By: #### 5 8410-2 #### [facility] CLIA [id number] [address] [place] [address] [place] MCV (RBC) [Entitic vol] 83.8 fL Normal 80.0-100.0 [facility] Comment on above: Order Comment: Speci men Type: BLOOD SPECIMEN Ordering Facility: [facility] Address: [address] [place] [address] Performed By: #### 5 8410-2 #### [facility] CLIA [id number] [address] [place] [address] [place] Platelet mean volume (Bld) [Entitic vol] 10.5 fL Normal 9.0-12.7 [facility] Comment on above: Order Comment: Speci men Type: BLOOD SPECIMEN Ordering Facility: [facility] Address: [address] [place] [address] Performed By: #### 5 8410-2 #### [facility] CLIA [id number] [address] [place] [address] [place] Platelets (Bld) [#/Vol] 419 10*3/uL High 150-400 [facility] Comment on above: Order Comment: Speci men Type: BLOOD SPECIMEN Ordering Facility: [facility] Address: [address] [place] [address] Performed By: #### 5 8410-2 #### [facility] CLIA [id number] [address] [place] [address] [place] RBC (Bld) [#/Vol] 4.87 10*6/uL Normal 3.90-5.20 [facility] Comment on above: Order Comment: Speci men Type: BLOOD SPECIMEN Ordering Facility: [facility] Address: [address] [place] [address] Performed By: #### 5 8410-2 #### [facility] CLIA [id number] [address] [place] [address] [place] WBC (Bld) [#/Vol] 12.93 10*3/uL High 3.70-11.00 [facility] Comment on above: Order Comment: Speci don Type: BLOOD SPECIMEN Ordering Facility: [facility] Address: [place] [address] Performed By: #### 5 8410-2 #### [facility] CLIA [id number] [facility] [place] [address] [place] Erythrocyte distribution width (RBC) [Ratio] 13.2 % 11.5 - 15.0 % [facility] Hematocrit (Bld) [Volume fraction] 40.8 % 36.0 - 46.0 % [facility] Hemoglobin (Bld) [Mass/Vol] 13.3 g/dL 11.5 - 15.5 g/dL [facility] MCH (RBC) [Entitic mass] 27.3 pg 26.0 - 34.0 pg [facility] MCHC (RBC) [Mass/Vol] 32.6 g/dL 30.5 - 36.0 g/dL [facility] MCV (RBC) [Entitic vol] 83.8 fL 80.0 - 100.0 fL [facility] Platelet mean volume (Bld) [Entitic vol] 10.5 fL 9.0 - 12.7 fL [facility] Platelets (Bld) [#/Vol] 419 10*3/uL High 150 - 400 k/uL [facility] RBC (Bld) [#/Vol] 4.87 10*6/uL 3.90 - 5.2 0 m/uL [facility] WBC (Bld) [#/Vol] 12.93 10*3/uL High 3.70 - 11 .00 k/uL [facility] CNOVon 02-16-2022 CNOV Office Visit (FAVC ) NANY BAPTISTE ([id number]) 1995 F Date Time Provider Department 02/16/22 1:00 PM RADHA MEMBRENO [facility] During your visit today, we recorded the following information about you: Pulse Blood pressure Weight Last Period 98/minute 126/84 59.1 kg 01/22/22 Radha Membreno MD 02/16/2022 1:39 PM Signed SUBJECTIVE: Nany Baptiste is a 26 year [...] and Discussed exercise/therapy REVIEW OF TESTS: Labs MD Isabelle Pierce 02/16/2022 1:39 PM Signed The patient is here for an injection of FLUZONE Dose: 0.5mL Route: Intramuscular Given without incident. 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 Membreno present in clinic at time of injection. Patient tolerated injection well Vaccine(s) administered as ordered. VIS for each vaccine administered was provided. Isabelle Mota Referring Provider: SELF [200] Allergies As of Date: 02/16/2022 (No Known Allergies) Date Reviewed: 02/16/2022 Reviewed by: Ann Daniels Ma - Fully Assessed Reason for Visit: Follow Up [171] Syncope [106] Primary Visit Diagnosis:Syncope, unspecified syncope type [R55] Other Visit Diagnosis:Need for vaccination [Z23] Order(s):COMP METABOLIC PANEL [SQCMP] Order #: [id number] FUTURE CBC [SQCBC] Order #: [id number] FUTURE TSH BLD [SQTSH] Order #: [id number] FUTURE INFLUENZA VACCINE QUADRIVALENT 6 MO - 64 YRS IM [[id number]] Order #: [id number] Prescriptions as of 02/16/2022 - norgestrel-ethinyl estradiol (CRYSELLE) 0.3-30 mg-mcg per tablet Take 1 tablet by mouth once daily. Problem List As Of Date: 02/16/2022 (None) Visit Notes: >> Isabelle Mota Nadine Feb 16, 2022 1:35 PM Status: Signed The patient is here for an injection of FLUZONE Dose: 0.5mL Route: Intramuscular Given without incident. 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 Membreno present in clinic at time of injection. Patient tolerated injection well Vaccine(s) administered as ordered. VIS for each vaccine administered was provided. Isabelle Mota Disposition: Return in about 3 months (around 05/19/2022). Follow-up and Disposition History for Encounter Date Provider Department Center 02/16/2022 [id number], NEI*[facility] Encounter Status:Closed by ISABELLE MOTA on 02/16/22 [facility] Amira 02-16-2022 LOIDAN Telephone ([facility]) EMILE,NANY Angelo ([id number]) 1995 F Date Time Provider Department 02/16/22 RADHA MEMBRENO [facility] During your visit today, we recorded the following information about you: Radha Membreno MD 02/16/2022 5:26 PM Signed Notify patient that tests are good. Isabelle Mota 02/17/2022 9:36 AM Signed Patient given message. Verbalized understanding. No further action needed. Isabelle Mota Allergies As of Date: 02/16/2022 (No Known Allergies) Date Reviewed: 02/16/2022 Reviewed by: Ann Daniels Ma - Fully Assessed Reason for Visit: Results [95] Prescriptions as of 02/17/2022 - norgestrel-ethinyl estradiol (CRYSELLE) 0.3-30 mg-mcg per tablet Take 1 tablet by mouth once daily. Problem List As Of Date: 02/16/2022 (None) Encounter Status:Closed by ISABELLE MOTA on 02/17/[address] [facility] Comprehensive metabolic 2000 panelon 02-16-2022 Albumin [Mass/Vol] 4.7 g/dL Normal 3.9-4.9 [facility] Comment on above: Order Comment: Murray ochoa Type: BLOOD SPECIMEN Ordering Facility: [facility] Address: [address] [place] [address] Performed By: #### 2 4323-8, 6-3 #### [facility] CLIA [id number] [address] [place] [address] [place] ALP [Catalytic activity/Vol] 94 U/L Normal 34-123 [facility] Comment on above: Order Comment: Murray ochoa Type: BLOOD SPECIMEN Ordering Facility: [facility] Address: [address] [place] [address] Performed By: #### 2 4323-8, 6-3 #### [facility] CLIA [id number] [address] [place] [address] [place] ALT [Catalytic activity/Vol] 10 U/L Normal 7-38 [facility] Comment on above: Order Comment: Speci men Type: BLOOD SPECIMEN Ordering Facility: [facility] Address: [address] [address] Performed By: #### 2 4323-8, 3016-3 #### [facility] CLIA [id number] [address] [place] [address] [place] Anion gap [Moles/Vol] 11 mmol/L Normal 9-18 [facility] Comment on above: Order Comment: Speci men Type: BLOOD SPECIMEN [facility] [facility] Address: [address] [place] [address] Performed By: #### 2 4323-8, 3016-3 #### [facility] CLIA [id number] [address] [place] [address] [place] AST [Catalytic activity/Vol] 18 U/L Normal 13-35 [facility] Comment on above: Order Comment: Speci men Type: BLOOD SPECIMEN Ordering Facility: [facility] Address: [address] [place] [address] Performed By: #### 2 4323-8, 3016-3 #### [facility] CLIA [id number] [address] [place] [address] [place] Bilirubin [Mass/Vol] 0.4 mg/dL Normal 0.2-1.3 [facility] Comment on above: Order Comment: Speci men Type: BLOOD SPECIMEN Ordering Facility: [facility] Address: [address] [place] [address] Performed By: #### 2 4323-8, 3016-3 #### [facility] CLIA [id number] [address] [place] [address] [place] Calcium [Mass/Vol] 9.9 mg/dL Normal 8.5-10.2 [facility] Comment on above: Order Comment: Speci men Type: BLOOD SPECIMEN Ordering Facility: [facility] Address: [address] [address] Performed By: #### 2 4323-8, 3016-3 #### [facility] CLIA [id number] [address] [place] [address] [place] Chloride [Moles/Vol] 103 mmol/L Normal 97-105 [facility] Comment on above: Order Comment: Speci men Type: BLOOD SPECIMEN Ordering Facility: [facility] Address: [address] [place] [address] Performed By: #### 2 4323-8, 6-3 #### [facility] CLIA [id number] [address] [place] [address] [place] CO2 [Moles/Vol] 25 mmol/L Normal 22-30 [facility] Comment on above: Order Comment: Speci men Type: BLOOD SPECIMEN Ordering Facility: [facility] Address: [address] [place] [address] Performed By: #### 2 4323-8, 6-3 #### [facility] CLIA [id number] [address] [place] [address] [place] Creatinine [Mass/Vol] 0.91 mg/dL Normal 0.58-0.96 [facility] Comment on above: Order Comment: Speci men Type: BLOOD SPECIMEN Ordering Facility: [facility] Address: [address] [place] [address] Performed By: #### 2 4323-8, 3016-3 #### [facility] CLIA [id number] [address] [place] [address] [place] ESTIMATED GLOMERULAR FILTRATION RATE 91 mL/min/1.73m??? Normal >=60 [facility] Comment on above: Order Comment: Speci men Type: BLOOD SPECIMEN Ordering Facility: [facility] Address: [address] [place] [address] Result Comment: Marifer mated Glomerular Filtration Rate (eGFR) is calculated using the 2020 CKD-EPI creatinine equation. This equation utilizes serum creatinine, sex, and age as parameters. The creatinine assay has traceable calibration to isotope dilution-mass spectrometry. Refer to KDIGO guidelines for clinical interpretation. In patients with unstable renal function, e.g. those with acute kidney injury, the eGFR may not accurately reflect actual GFR. Performed By: #### 2 4323-8, 3016-3 #### [facility] CLIA [id number] [address] [place] [address] [place] Glucose [Mass/Vol] 107 mg/dL High 74-99 [facility] Comment on above: Order Comment: Murray ochoa Type: BLOOD SPECIMEN Ordering Facility: [facility] Address: [address] [id number] Result Comment: The [place] Diabetes Association (ADA) provides guidance for cutoff values for fasting glucose and random glucose. The ADA defines fasting as no caloric intake for at least 8 hours. Fasting plasma glucose results between 100 to 125 mg/dL indicate increased risk for diabetes (prediabetes). Fasting plasma glucose results greater than or equal to 126 mg/dL meet the criteria for diagnosis of diabetes. In the absence of unequivocal hyperglycemia, results should be confirmed by repeat testing. In a patient with classic symptoms of hyperglycemia or hyperglycemic crisis, random plasma glucose results greater than or equal to 200 mg/dL meet the criteria for diagnosis of diabetes. Reference: Standards of Medical Care in Diabetes 2016, [place] Diabetes Association. Diabetes Care. 2016.39(Suppl 1). Performed By: #### 2 4323-8, 6-3 #### [facility] CLIA [id number] [address] [place] [address] [place] Potassium [Moles/Vol] 3.9 mmol/L Normal 3.7-5.1 [facility] Comment on above: Order Comment: Murray ochoa Type: BLOOD SPECIMEN Ordering Facility: [facility] Address: [address] [place] [address] Performed By: #### 2 4323-8, 6-3 #### [facility] CLIA [id number] [address] [place] [address] [place] Protein [Mass/Vol] 7.6 g/dL Normal 6.3-8.0 [facility] Comment on above: Order Comment: Speci men Type: BLOOD SPECIMEN Ordering Facility: [facility] Address: [address] [address] Performed By: #### 2 4323-8, 3016-3 #### [facility] CLIA [id number] [address] [place] [address] [place] Sodium [Moles/Vol] 139 mmol/L Normal 136-144 [facility] Comment on above: Order Comment: Speci men Type: BLOOD SPECIMEN Ordering Facility: [facility] Address: [address] [address] Performed By: #### 2 4323-8, 3016-3 #### [facility] CLIA [id number] [address] [place] [address] [place] Urea nitrogen [Mass/Vol] 10 mg/dL Normal 7-21 [facility] Comment on above: Order Comment: Speci men Type: BLOOD SPECIMEN Ordering Facility: [facility] Address: [address] [address] Performed By: #### 2 4323-8, 3016-3 #### [facility] CLIA [id number] [address] [place] [address] [place] Albumin [Mass/Vol] 4.7 g/dL 3.9 - 4.9 g/dL [facility] ALP [Catalytic activity/Vol] 94 U/L 34 - 123 U/L [facility] ALT [Catalytic activity/Vol] 10 U/L 7 - 38 U/L [facility] Anion gap [Moles/Vol] 11 mmol/L 9 - 18 mmol/L [facility] AST [Catalytic activity/Vol] 18 U/L 13 - 35 U/L [facility] Bilirubin [Mass/Vol] 0.4 mg/dL 0.2 - 1 .3 mg/dL [facility] Calcium [Mass/Vol] 9.9 mg/dL 8.5 - 10. 2 mg/dL [facility] Chloride [Moles/Vol] 103 mmol/L 97 - 10 5 mmol/L [facility] CO2 [Moles/Vol] 25 mmol/L 22 - 30 mmol/L [facility] Creatinine [Mass/Vol] 0.91 mg/dL 0.58 - 0.96 mg/dL [facility] Estimated Glomerular Filtration Rate 91 mL/min/1.73m >=60 mL/min/1.73m [facility] Glucose [Mass/Vol] 107 mg/dL High 74 - 99 mg/dL [facility] Potassium [Moles/Vol] 3.9 mmol/L 3.7 - 5.1 mmol/L [facility] Protein [Mass/Vol] 7.6 g/dL 6.3 - 8.0 g/dL [facility] Sodium [Moles/Vol] 139 mmol/L 136 - 144 mmol/L [facility] Urea nitrogen [Mass/Vol] 10 mg/dL 7 - 21 mg/dL [facility] TSH BLDon 02-16-2022 TSH Qn 1.940 m[IU]/L 0.270 - 4.200 mIU/L [facility] TSH SerPl-aCncon 02-16-2022 TSH Qn 1.940 m[IU]/L Normal 0.270-4.200 [facility] Comment on above: Order Comment: Speci men Type: BLOOD SPECIMEN Ordering Facility: [facility] Address: [address] [place] [phone] Result Comment: If t he patient is , TSH reference range varies by gestational period: First Trimester (weeks 9-12): 0.180-2.990 mIU/L Second Trimester: 0.110-3.980 mIU/L Third Trimester: 0.480-4.710 mIU/L Shabbir Wylie et al. A Practical Approach for the Verifications and Determination of Site- and Trimester-Specific Reference Intervals for Thyroid Function tests in . Thyroid, 2019:29:3:412-420. Carrillo E, et al. 2017 Guidelines of the [place] Thyroid Association for the Diagnosis and Management of Thyroid Disease during and the . Thyroid, 2017:27:3:315-389. Performed By: #### 2 4323-8, 3016-3 #### [facility] CLIA [id number] [facility] [place] [address] [place] XR MANDIBLE (MIN 4 VIEWS)on 04-27-2020 Unremarkable appeari ng mandible [place], [place] EXAMINATION: FOUR XR AY VIEWS OF THE MANDIBLE 04/27/2020 10:10 am COMPARISON: None. HISTORY: ORDERING SYSTEM PROVIDED HISTORY: Contusion of jaw, initial encounter TECHNOLOGIST PROVIDED HISTORY: Reason for Exam: Contusion of jaw Acuity: Acute Type of Exam: Initial Mechanism of Injury: Contusion of jaw FINDINGS: Mandible appears to be intact. The TMJs are in anatomic alignment. No fracture or destructive bony abnormality. [place], [place] Fly, [facility] Incoming Radiology Results From [employer] - 04/27/2020 11:20 AM EST EXAMINATION: FOUR XRAY VIEWS OF THE MANDIBLE 04/27/2020 10:10 am COMPARISON: None. HISTORY: ORDERING SYSTEM PROVIDED HISTORY: Contusion of jaw, initial encounter TECHNOLOGIST PROVIDED HISTORY: Reason for Exam: Contusion of jaw Acuity: Acute Type of Exam: Initial Mechanism of Injury: Contusion of jaw FINDINGS: Mandible appears to be intact. The TMJs are in anatomic alignment. No fracture or destructive bony abnormality. IMPRESSION: Unremarkable appearing mandible [place], [place] Vital Signs Date Time Vital Sign Value Performing Clinician Anai eber 11-11-2024 15:24-0400 Body height 157.48 cm Gayle Mcclain CN Work Phone: [facility] 11-11-2024 15:24-0400 Body mass index (BMI) [Ratio] 28.2 kg/m2 Gayle Mcclain CN Work Phone: [facility] 11-11-2024 15:24-0400 Body weight 70.02 kg Gayle Mcclain CN Work Phone: [facility] 11-11-2024 15:24-0400 Diastolic blood pressure 74 mm[Hg] Gayle Mcclain CNM Work Phone: [facility] 11-11-2024 15:24-0400 Systolic blood pressure 116 mm[Hg] Gayle Mcclain CNM Work Phone: [facility] 10-15-2024 15:06-0400 Body height 157.48 cm Gayle Mcclain CN Work Phone: [facility] 10-15-2024 15:06-0400 Body mass index (BMI) [Ratio] 27.4 kg/m2 Gayle Mcclain CNM Work Phone: [facility] 10-15-2024 15:06-0400 Body weight 68.15 kg Gayle Mcclain CNM Work Phone: [facility] 10-15-2024 15:06-0400 Diastolic blood pressure 77 mm[Hg] Gayle Mcclain CNM Work Phone: [facility] 10-15-2024 15:06-0400 Systolic blood pressure 116 mm[Hg] Gayle Mcclain CNM Work Phone: [facility] 09-15-2024 11:56-0400 Body height 157.48 cm Gayle Mcclain CNM Work Phone: [facility] 09-15-2024 11:56-0400 Body mass index (BMI) [Ratio] 26.2 kg/m2 Gayle Mcclain CNM Work Phone: [facility] 09-15-2024 11:56-0400 Body weight 65.03 kg Gayle Mcclain CNM Work Phone: [facility] 09-15-2024 11:56-0400 Diastolic blood pressure 85 mm[Hg] Gayle Mcclain CNM Work Phone: [facility] 09-15-2024 11:56-0400 Systolic blood pressure 121 mm[Hg] Gayle Mcclain CNM Work Phone: [facility] 08-18-2024 15:09-0400 Body mass index (BMI) [Ratio] 25.6 kg/m2 Gayle Mcclain CNM Work Phone: [facility] 08-18-2024 15:09-0400 Body weight 63.55 kg Gayle Mcclain CNM Work Phone: [facility] 08-18-2024 15:09-0400 Diastolic blood pressure 79 mm[Hg] Gaylepenny Mcclain CNM Work Phone: [facility] 08-18-2024 15:09-0400 Systolic blood pressure 117 mm[Hg] Gayle Mcclain CNM Work Phone: [facility] 07-21-2024 10:22-0400 Body height 157.48 cm No Primary Care Physician [facility] 07-21-2024 10:22-0400 Body mass index (BMI) [Ratio] 25.4 kg/m2 No Primary Care Physician [facility] 07-21-2024 10:22-0400 Body weight 63.04 kg No Primary Care Physician [facility] 07-21-2024 10:22-0400 Diastolic blood pressure 75 mm[Hg] No Primary Care Physician [facility] 07-21-2024 10:22-0400 Systolic blood pressure 126 mm[Hg] No Primary Care Physician [facility] 05-02-2024 14:28-0500 Body mass index (BMI) [Ratio] 26.6 kg/m2 No Primary Care Physician [facility] 05-02-2024 14:28-0500 Body weight 66.22 kg No Primary Care Physician [facility] 05-02-2024 14:28-0500 Diastolic blood pressure 75 mm[Hg] No Primary Care Physician [facility] 05-02-2024 14:28-0500 Systolic blood pressure 123 mm[Hg] No Primary Care Physician [facility] 05-02-2023 13:47-0500 Body height 157.48 cm No Primary Care Physician [facility] 05-02-2023 13:46-0500 Body mass index (BMI) [Ratio] 25.7 kg/m2 No Primary Care Physician [facility] 05-02-2023 13:46-0500 Body weight 63.67 kg No Primary Care Physician [facility] 05-02-2023 13:46-0500 Diastolic blood pressure 77 mm[Hg] No Primary Care Physician [facility] 05-02-2023 13:46-0500 Systolic blood pressure 115 mm[Hg] No Primary Care Physician [facility] 02-09-2023 15:57-0400 Body height 157.48 cm CNAngelo Mcclain Work Phone: [facility] 02-09-2023 15:56-0400 Body mass index (BMI) [Ratio] 24.1 kg/m2 CN Gayle Mcclain Work Phone: [facility] 02-09-2023 15:56-0400 Body weight 59.93 kg CN Gayle Mcclain Work Phone: [facility] 02-09-2023 15:56-0400 Diastolic blood pressure 67 mm[Hg] CN Gayle Mcclain Work Phone: [facility] 02-09-2023 15:56-0400 Systolic blood pressure 107 mm[Hg] CN Gayle Mcclain Work Phone: [facility] 08-04-2022 13:38-0400 Body height 159 cm Radha Middleton Work Phone: [facility] 08-04-2022 13:38-0400 Body temperature 97.9 [degF] Radha Middleton Work Phone: [facility] 08-04-2022 13:38-0400 Body weight 58.97 kg Radha Middleton Work Phone: [facility] 08-04-2022 13:38-0400 Diastolic blood pressure 74 mm[Hg] Radha Membreno MD Work Phone: [facility] 08-04-2022 13:38-0400 Heart rate 77 /min Radha Middleton Work Phone: [facility] 08-04-2022 13:38-0400 Systolic blood pressure 110 mm[Hg] Radha Membreno MD Work Phone: [facility] 04-24-2022 08:53-0500 Body height 157.48 cm CN Gayle Mcclain Work Phone: [facility] 04-24-2022 08:53-0500 Body mass index (BMI) [Ratio] 24.3 kg/m2 CN Gayle Mcclain Work Phone: [facility] 04-24-2022 08:53-0500 Body weight 60.49 kg CN Gayle Mcclain Work Phone: [facility] 04-24-2022 08:53-0500 Diastolic blood pressure 75 mm[Hg] [facility] Gayle Mcclain Work Phone: [facility] 04-24-2022 08:53-0500 Systolic blood pressure 111 mm[Hg] [facility] Gayle Mcclain Work Phone: [facility] 03-24-2022 13:32-0500 Body height 159 cm Eloy Nag S Mallapareddi Work Phone: -[facility] Work Phone: 03-24-2022 13:32-0500 Body mass index (BMI) [Ratio] 23.5 kg/m2 Eloy Nag S Mallapareddi Work Phone: -[facility] Work Phone: 03-24-2022 13:32-0500 Body surface area Derived from formula 1.61 m2 Eloy Nag S Mallapareddi Work Phone: -[facility] Work Phone: 03-24-2022 13:32-0500 Body weight 59.42 kg Eoly Nag S Mallapareddi Work Phone: -[facility] Work Phone: 03-24-2022 13:32-0500 Diastolic blood pressure 70 mm[Hg] Eloy Nag S Mallapareddi Work Phone: -[facility] Work Phone: 03-24-2022 13:32-0500 Heart rate 72 /min Eloy Nag S Mallapareddi Work Phone: -[facility] Work Phone: 03-24-2022 13:32-0500 Systolic blood pressure 126 mm[Hg] Eloy Nag S Mallapareddi Work Phone: [facility] Work Phone: 02-16-2022 13:05-0400 Body weight 59.06 kg Radha Middleton Work Phone: [facility] 02-16-2022 13:05-0400 Diastolic blood pressure 84 mm[Hg] Radha Membreno MD Work Phone: [facility] 02-16-2022 13:05-0400 Heart rate 98 /min Radha Middleton Work Phone: [facility] 02-16-2022 13:05-0400 SaO2% (BldA) [Mass fraction] 100 % Radha Membreno MD Work Phone: [facility] 02-16-2022 13:05-0400 Systolic blood pressure 126 mm[Hg] Radha Membreno MD Work Phone: [facility] Encounters Encounter Date Encounter Type Care Provider Facility Start: 11-11-2024 End: 11-11-2024 ambulatory Gayle Mcclain Facility:[facility] Start: 11-11-2024 End: 11-11-2024 Patient encounter procedure Anna LEW -[facility] Work Phone: Start: 10-15-2024 End: 10-15-[address] Nadia Ryan DO -[facility] Work Phone: Start: 10-15-2024 End: 10-15-2024 ambulatory Gayle Mcclain CN Work Phone: -[facility] Start: 09-15-2024 End: 09-15-2024 Patient encounter procedure Reyna Martinez CNM -[facility] Work Phone: Start: 09-15-2024 End: 09-15-2024 ambulatory Gayle Mcclain CNM Work Phone: [facility] Work Phone: Start: 09-15-2024 End: 09-15-2024 ambulatory MD [facility] Start: 08-18-2024 End: 08-18-2024 Patient encounter procedure Reyna Martinez CNM -[facility] Work Phone: Start: 08-18-2024 End: 08-18-2024 ambulatory Reyna Martinez Facility:[facility] Start: 07-21-2024 End: 07-21-2024 ambulatory No Primary Care Physician [facility] Work Phone: Start: 07-21-2024 End: 07-21-[address] Siria Pandya MD -Lab, [facility] Start: 07-21-2024 End: 07-21-[address] Siria Pandya MD -[facility] Work Phone: Start: 07-21-2024 End: 07-21-2024 ambulatory Siria Pandya Facility:[facility] Start: 07-21-2024 End: 07-21-2024 ambulatory Gayle Mcclain Facility:[facility] Start: 07-11-2024 Non-patient / Non-visit Jinny Jordan RN -[facility] Work Phone: Start: 07-11-2024 ambulatory Gayle Mcclain Facilit y:[facility] Start: 07-03-2024 End: 07-03-2024 ambulatory No Primary Care Physician [facility] Work Phone: Start: 07-03-2024 End: 07-03-2024 Patient encounter procedure Reyna Martinez CNM -[facility] Work Phone: Start: 07-03-2024 End: 07-03-2024 ambulatory Reyna Martinez Facility:[facility] Start: 05-02-2024 End: 05-02-2024 Patient encounter procedure Gayle Mcclain CNM -[facility] Work Phone: Start: 05-02-2024 End: 05-02-2024 [facility] Start: 05-02-2024 End: 05-02-2024 ambulatory No Primary Care Physician Facility:[facility] Start: 05-15-2023 End: 05-15-2023 ambulatory No Primary Care Physician [facility] Work Phone: Start: 05-15-2023 End: 05-15-2023 Patient encounter procedure No Primary Care Physician [facility], [facility] Work Phone: Start: 05-02-2023 End: 05-02-2023 ambulatory No Primary Care Physician [facility] Work Phone: Start: 05-02-2023 End: 05-02-2023 Patient encounter procedure No Primary Care Physician [facility]Laboratory, Specimen Work Phone: Start: 05-02-2023 End: 05-02-2023 Patient encounter procedure No Primary Care Physician [facility] Work Phone: Start: 02-26-2023 End: 02-26-2023 ambulatory CNM Gayle Mcclain Work Phone: [facility] Work Phone: Start: 02-26-2023 End: 02-26-2023 Patient encounter procedure CNM Gayle Mcclain Work Phone: [facility] Work Phone: Start: 02-09-2023 End: 02-09-2023 ambulatory CNM Gayle Mcclain Work Phone: [facility] Work Phone: Start: 02-09-2023 End: 02-09-2023 Patient encounter procedure CNM Gayle Mcclain Work Phone: [facility]Labor[facility] Work Phone: Start: 02-09-2023 End: 02-09-2023 Patient encounter procedure CNM Gayle Mcclain Work Phone: [facility] Work Phone: Start: 08-04-2022 End: 08-04-2022 ambulatory RADHA MEMBRENO Facility:[facility] Start: 08-04-2022 End: 08-04-2022 Patient encounter procedure Radha Membreno MD Work Phone: [facility] Comment on above: Other chest pain (Pr imary Dx) Start: 04-24-2022 End: 04-24-2022 ambulatory WOODROW Mcclain Work Phone: [facility] Work Phone: Start: 04-24-2022 End: 04-24-2022 Patient encounter procedure WOODROW Mcclain Work Phone: [facility]Laboratory, Specimen Start: 04-24-2022 Patient encounter procedure WOODROW Mcclain Work Phone: [facility] Start: 04-24-2022 End: 04-24-2022 Patient encounter procedure WOODROW Mcclain Work Phone: [facility] Start: 03-24-2022 Office outpatient ne w 30 minutes Eloyjesus Balderas Mallapareddi Work Phone: [facility] Work Phone: Start: 03-24-2022 Patient encounter procedure Eloy Balderas Mallapareddi Work Phone: [facility] Work Phone: Start: 03-24-2022 ambulatory ELOY ANDINO MALLAPAREDDI Facility:[id number] Start: 03-18-2022 End: 03-18-2022 Emergency department patient visit MARTHA GUEVARA [facility] Start: 02-16-2022 End: 02-17-2022 ambulatory RADHA MEMBRENO Facility:[facility] Start: 02-16-2022 Telephone encounter Radha bustillo MD Work Phone: [facility] Comment on above: Results Start: 02-16-2022 End: 02-16-2022 Patient encounter procedure Radha Membreno MD Work Phone: [facility] Comment on above: Syncope, unspecified syncope type (Primary Dx); Need for vaccination Start: 04-27-2020 End: 04-27-2020 Subsequent hospital visit by physician [facility] Xr Room 1 [facility] Comment on above: Whiplash injury to n jennifer, initial encounter Contusion of jaw, in itial encounter Procedures Date Procedure Procedure Detail Performing Clinician Start: 07-21-2024 Urine culture No Primar y Care Physician Start: 07-21-2024 Hepatitis C antibody measurement Gayle BARRY Work Phone: Comment on above: Reactive: Presumptiv e evidence of antibodies to HCV. Follow CDC recommendations for supplemental testing.Non-Reactive: Antibodies to HCV were not detected; does not exclude the possibility of exposure to HCVReactive Results are presumptive evidence of antibodies to HCV. Follow CDC recommendations for supplemental testing.Order confirmation testing: HCV Quant by PCR testing - HCVPCR #[id number] Non Reactive: < 0.8 Equivocal: >/= 0.8 to < 1.0 Reactive: >/= 1.0The CDC requires that a reactive/equivocal HCV antibody result be sent out for confirmation. HCV Quant by PCR testing. Start: 07-21-2024 Rubella IgG measurement Gayle Mcclain [facility] Work Phone: Comment on above: Antibody Result: Int erpretationNon-Reactive: Non- ImmuneReactive: ImmuneThe following results were obtained with the [employer] Rubella IgG assay. Results from assays of other manufacturers cannot be used interchangeably. Start: 07-21-2024 Serologic test for syphilis Gayle Mcclain [facility] Work Phone: Start: 07-03-2024 Transvaginal obstetr ic ultrasonography No Primary Care Physician Start: 05-15-2023 Transvaginal echography No Primary Care Physician Start: 02-26-2023 Transvaginal echography [facility] Gayle Mcclain Work Phone: Start: 02-16-2022 INFLUENZA VACCINE QUADRIVALENT 6 MO - 64 YRS IM Radha Membreno MD Work Phone: Start: 04-27-2020 Radiolog exam mandib le compl minimum 4 views Mikayla Montgomery Work Phone: Start: 04-27-2020 Radex spine cervical 2 or 3 views Mikayla Montgomery Work Phone: No history of surgery Eloy Lowery Work Phone: Plan of Treatment Date Care Activity Detail Author Start: 11-11-2024 CBC W Auto Different ial panel - Blood [facility] Start: 11-11-2024 Measurement of gluco se 2 hours after glucose challenge for glucose tolerance test [facility] Start: 11-11-2024 Serologic test for syphilis [facility] Start: 11-11-2024 [facility] Start: 04-21-2022 FUV, Provider: Eloy Lowery, Status: Pen, Time: 3:00 PM FUV, Provider: Eloy Lowery, Status: Pen, Time: 3:00 PM [facility] Work Phone: Start: 04-01-2022 PAP TESTING PAP TESTING [facility] Start: 04-16-2021 DEPRESSION ASSESSMENT DEPRESSION ASS ESSMENT [facility] Start: 12-16-2019 Influenza vaccination Flu vaccine (# 1) [place], [place] Start: 12-17-2018 DTaP/Tdap/Td vaccine (5 - Td) DTaP/Tdap/Td vaccine (5 - Td) [place] Start: 12-17-2018 Urine microalbumin profile [facility] Start: 2018 Screening for malign ant neoplasm of cervix Cervical cancer screen [place], [place] Start: 07-25-2015 HEPATITIS C SCREENING HEPATITIS C SC WALT [facility] Start: 07-25-2015 HIV SCREENING HIV SCREENING [facility] Start: 2013 Screening for Chlamy david trachomatis Chlamydia screen [place], [place] Start: 2012 HIV screening HIV screen [place], [place] Start: 07-25-2011 PEDS TO ADULT TRANSI TION ANNUAL ASSESSMENT PEDS TO ADULT TRANSITION ANNUAL ASSESSMENT [facility] Start: 2009 PEDS TO ADULT TRANSI TION INITIAL DISCUSSION PEDS TO ADULT TRANSITION INITIAL DISCUSSION [facility] Start: 07-25-2007 MENINGOCOCCAL B: Consider based on risk (1 of 2 - Risk Bexsero 2-dose series) MENINGOCOCCAL B: Consider based on risk (1 of 2 - Risk Bexsero 2-dose series) [facility] Start: 01-23-1998 COVID-19 VACCINE (#1) COVID-19 VACCI NE (#1) [facility] Start: 1997 Hepatitis C screening Hepatitis C [facility], [place] CBC W Auto Different ial panel - Blood [facility] Erythrocyte mean corpuscular volume determination [facility] Hematocrit [Volume Fraction] of Blood [facility] Hemoglobin [Mass/vol ume] in Blood [facility] Leukocytes [#/volume ] in Blood [facility] Mean corpuscular hemoglobin concentration determination [facility] Mean corpuscular hemoglobin determination [facility] Measurement of gluco se 2 hours after glucose challenge for glucose tolerance test [facility] Neutrophil count [facility] Neutrophil percent differential count [facility] Platelets [#/volume] in Blood [facility] Red blood cell count [facility] Red cell distributio n width determination [facility] Serologic test for syphilis [facility] End: 08-05-2023 STRESS ECHO TREADMILL STRESS ECHO TREADMILL Cardiology Routine Other chest pain 1 Occurrences starting 08/04/2022 until 08/05/2023 [facility] Work Phone: Comment on above: 1 Occurrences starti ng 08/04/2022 until 08/05/2023 XR CERVICAL SPINE (2 -3 VIEWS) XR CERVICAL SPINE (2-3 VIEWS) Imaging STAT Whiplash injury to neck, initial encounter 04/27/2020 10:37 AM EST [facility] Immunization Date Immunization Notes Care Provider Ajit oneill 02-16-2022 influenza, injectabl e, quadrivalent, contains preservative Radha Membreno MD Work Phone: [facility] 06-11-2020 influenza, injectabl e, quadrivalent, contains preservative Radha Membreno MD Work Phone: [facility] 02-09-2014 meningococcal polysaccharide (groups A, C, Y and W-135) diphtheria toxoid conjugate vaccine (MCV4P) [facility] 1 [facility] Work Phone: 02-03-2014 Fluvirin 4 years and over [facility] 1 [facility], [place] 02-03-2014 influenza, seasonal, injectable Radha Membreno MD Work Phone: [facility] Work Phone: 03-25-2013 human papilloma viru s vaccine, quadrivalent [facility] 1 [facility] Work Phone: 03-25-2013 influenza virus vaccine, unspecified formulation Mm 1 [facility], [place] 03-25-2013 influenza, seasonal, injectable, preservative free Radha Membreno MD Work Phone: [facility] Work Phone: 03-29-2012 influenza virus vaccine, unspecified formulation Mm 1 [facility], [place] 03-29-2012 influenza, seasonal, injectable, preservative free Radha Membreno MD Work Phone: [facility] Work Phone: 12-29-2011 human papilloma viru s vaccine, quadrivalent Mm 1 [facility] Work Phone: 10-19-2011 hepatitis A vaccine, pediatric/adolescent dosage, 2 dose schedule Radha Membreno MD Work Phone: [facility] Work Phone: 10-19-2011 hepatitis A vaccine, unspecified formulation Mm 1 [facility] Work Phone: 10-19-2011 human papilloma viru s vaccine, quadrivalent Mm 1 [facility] Work Phone: 11-24-2009 hepatitis A vaccine, pediatric/adolescent dosage, 2 dose schedule Radha Membreno MD Work Phone: [facility] Work Phone: 11-24-2009 hepatitis A vaccine, unspecified formulation [facility] 1 [facility] Work Phone: 11-24-2009 human papilloma viru s vaccine, quadrivalent Radha Membreno MD Work Phone: [facility] 11-24-2009 varicella virus vaccine [facility] 1 [facility] Work Phone: 03-09-2009 novel [id number], preservative-free, injectable Radha Membreno MD Work Phone: [facility] Work Phone: 12-17-2008 meningococcal ACWY vaccine, unspecified formulation Mm 1 [place] 12-17-2008 meningococcal polysaccharide (groups A, C, Y and W-135) diphtheria toxoid conjugate vaccine (MCV4P) Radha Membreno MD Work Phone: [facility] Work Phone: 12-17-2008 tetanus toxoid, redu karena diphtheria toxoid, and acellular pertussis vaccine, adsorbed Mm 1 [facility] Work Phone: 11-11-2007 diphtheria, tetanus toxoids and acellular pertussis vaccine Radha Membreno MD Work Phone: [facility] 12-03-2002 diphtheria, tetanus toxoids and acellular pertussis vaccine [facility] 1 [facility] 12-03-2002 diphtheria, tetanus toxoids and acellular pertussis vaccine, unspecified formulation Radha Membreno MD Work Phone: [facility] Work Phone: 12-03-2002 measles, mumps and rubella virus vaccine Mm 1 [facility] 12-03-2002 poliovirus vaccine, inactivated Radha Membreno MD Work Phone: [facility] 12-03-2002 poliovirus vaccine, unspecified formulation Mm 1 [facility] Work Phone: 11-10-1998 diphtheria, tetanus toxoids and acellular pertussis vaccine Mm 1 [facility] Work Phone: 11-10-1998 diphtheria, tetanus toxoids and acellular pertussis vaccine, unspecified formulation Radha Membreno MD Work Phone: [facility] Work Phone: 07-29-1998 haemophilus influenz ae type b vaccine, conjugate unspecified formulation Radha Membreno MD Work Phone: [facility] Work Phone: 07-29-1998 haemophilus influenz ae type b vaccine, HbOC conjugate Radha Membreno MD Work Phone: [facility] Work Phone: 07-29-1998 haemophilus influenz ae type b vaccine, PRP-OMP conjugate Radha Membreno MD Work Phone: [facility] Work Phone: 07-29-1998 Hib, unspecified Mm 1 [place], [place] 07-29-1998 measles, mumps and rubella virus vaccine [facility] 1 [facility] 07-29-1998 measles, mumps, rubella, and varicella virus vaccine Radha Membreno MD Work Phone: [facility] 07-29-1998 poliovirus vaccine, inactivated Radha Membreno MD Work Phone: [facility] 07-29-1998 poliovirus vaccine, unspecified formulation Mm 1 [place], [place] 07-29-1998 trivalent poliovirus vaccine, live, oral Radha Membreno MD Work Phone: [facility] Work Phone: 07-29-1998 varicella virus vaccine Mm 1 [facility] Work Phone: 05-18-1998 hepatitis B vaccine, adult dosage Radha Membreno MD Work Phone: [facility] Work Phone: 05-18-1998 hepatitis B vaccine, pediatric or pediatric/adolescent dosage Radha Membreno MD Work Phone: [facility] 05-18-1998 hepatitis B vaccine, unspecified formulation Mm 1 [facility] Work Phone: 02-26-1998 diphtheria, tetanus toxoids and acellular pertussis vaccine Mm 1 [facility] 02-26-1998 diphtheria, tetanus toxoids and acellular pertussis vaccine, unspecified formulation Radha Membreno MD Work Phone: [facility] Work Phone: 02-26-1998 haemophilus influenz ae type b vaccine, conjugate unspecified formulation Radha Membreno MD Work Phone: [facility] Work Phone: 02-26-1998 haemophilus influenz ae type b vaccine, HbOC conjugate Radha Membreno MD Work Phone: [facility] Work Phone: 02-26-1998 haemophilus influenz ae type b vaccine, PRP-OMP conjugate Radha Membreno MD Work Phone: [facility] Work Phone: 02-26-1998 Hib, unspecified [facility] 1 [place], [place] 1997 diphtheria, tetanus toxoids and acellular pertussis vaccine Mm 1 [facility] 1997 diphtheria, tetanus toxoids and acellular pertussis vaccine, unspecified formulation Radha Membreno MD Work Phone: [facility] Work Phone: 1997 haemophilus influenz ae type b conjugate and Hepatitis B vaccine Radha Membreno MD Work Phone: [facility] Work Phone: 1997 haemophilus influenz ae type b vaccine, conjugate unspecified formulation Radha Membreno MD Work Phone: [facility] Work Phone: 1997 haemophilus influenz ae type b vaccine, HbOC conjugate Radha Membreno MD Work Phone: [facility] Work Phone: 1997 hepatitis B vaccine, adult dosage Radha Membreno MD Work Phone: [facility] Work Phone: 1997 hepatitis B vaccine, pediatric or pediatric/adolescent dosage Radha Membreno MD Work Phone: [address]26-1998 hepatitis B vaccine, unspecified formulation [facility] 1 [facility] Work Phone: 1997 Hib, unspecified [facility] 1 [place] 1997 poliovirus vaccine, inactivated Radha Membreno MD Work Phone: [facility] 1997 poliovirus vaccine, unspecified formulation Mmh 1 [facility] Work Phone: 1997 diphtheria, tetanus toxoids and acellular pertussis vaccine [facility] 1 [facility] 1997 diphtheria, tetanus toxoids and acellular pertussis vaccine, unspecified formulation Radha Membreno MD Work Phone: [facility] Work Phone: 1997 haemophilus influenz ae type b conjugate and Hepatitis B vaccine Radha Membreno MD Work Phone: [facility] Work Phone: 1997 haemophilus influenz ae type b vaccine, conjugate unspecified formulation Radha Membreno MD Work Phone: [facility] Work Phone: 1997 haemophilus influenz ae type b vaccine, HbOC conjugate Radha Membreno MD Work Phone: [facility] Work Phone: 1997 hepatitis B vaccine, adult dosage Radha Membreno MD Work Phone: [facility] Work Phone: 1997 hepatitis B vaccine, pediatric or pediatric/adolescent dosage Radha Membreno MD Work Phone: [facility] 1997 hepatitis B vaccine, unspecified formulation Mm 1 [facility] Work Phone: 1997 Hib, unspecified M[facility] 1 [place], [place] 1997 poliovirus vaccine, inactivated Radha Membreno MD Work Phone: [facility] 1997 poliovirus vaccine, unspecified formulation Mmh 1 [facility] Work Phone: Payers Date Payer Category Payer Private Health Insurance [id number] Self-pay 2022 Unknown 2022 Unknown [id number] 2020 Unknown [id number] 2019 Private Health Insurance [employer] A ETNA CHOICE POS [id number] 2019-Present [phone] [address] [place] [address] POS [id number] 2019 Private Health Insurance [id number] 1997 Unknown [id number] 02 1997 Unknown [id number] 56 1997 Unknown [id number] 79 Unknown [id number] 62 Unknown [id number] 62 Unknown [id number] 62 Unknown [id number] 62 Unknown [id number] 62 Unknown [id number] 62 Unknown [id number] 62 Unknown [id number] 62 Unknown [id number] 62 Social History Date Type Detail Facility Start: 02-09-2014 End: 07-11-2024 Tobacco smoking status NHIS Never smoker [facility] Work Phone: Start: 1995 Sex Assigned At Not on file [place] Start: 02-16-2022 Tobacco use and exposure Smoke less tobacco non-user [facility] Work Phone: Start: 02-16-2022 End: 08-04-2022 Alcohol intake Current non-drinker of alcohol (finding) [facility] Start: 04-01-2019 History SDOH Alcohol Frequency 1 [facility] Start: 04-01-2019 History SDOH Alcohol Std Drinks 98 [facility] Start: 04-01-2019 History SDOH Social Connections Phone 2 [facility] Start: 04-01-2019 History SDOH Social Connections Get Together 3 [facility] Start: 04-01-2019 History SDOH Social Connections Living 7 [facility] Start: 04-01-2019 History SDOH Physica l Activity DPW 4 [facility] Start: 04-01-2019 History SDOH Physica l Activity MPS 6 [facility] Start: 04-01-2019 History SDOH Financial 5 [facility] Start: 04-01-2019 Education 16 [facility] Start: 02-06-2022 End: 02-16-2022 Exposure to SARS-CoV-2 (event) Not sure [facility] Never a smoker Never a smoker [facility] Work Phone: Start: 04-24-2022 End: 05-02-2023 Tobacco smoking status NHIS Unknown if ever smoked [facility] Start: 1995 Sex Assigned At Female W [facility] Start: 07-10-2024 End: 2024 Sex Female (finding) [facility] Clinical Notes 10-09-2022 to 10-15-2024 Note Date & Type Note Facility 10-15-2024 Progress note [facility] 10-15-2024 Progress note Note Date/Time October 15, 2024 3:30pm [facility] [address], [address] [place] [address] OFFICE VISIT Date of Service: 10/15/24 MR#: [id number] Acct: [id number] Name: NANY BAPTISTE Rep #: [id number] : 1995 Provider: Dr. Jessica Ryan DO Age/Sex: 29/F Location: [facility] [place] Status: Signed Intake Vital Signs 08/18/24 15:09 09/15/24 11:56 10/15/24 15:06 Height 5 ft 2 in 5 ft 2 in 5 ft 2 in Weight: 150 lb 4 oz BMI 27.4 BP 116/77 Intake Visit Reasons: 23 wk ob Creative Assistant Required: No Is patient in pain?: No Allergies No Known Allergies Allergy (Verified 10/15/24 15:10) Medications ?Medication ?Instructions ?Recorded ?Confirmed ?Type docosahexaenoic acid 200 mg mg PO 07/11/24 10/15/24 Hi story capsule ( DHA) Last Menstrual Period: 04/23/24 Zika: Zika virus screening: Negative : No PFSH PFSH Medical History Dermoid cyst Irregular menstrual cycle Family History Grandfather Dementia Social History adopted: No household members: significant other housing: apartment number of children: 0 current occupational status: employed 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 current occupational exposures/hazards: No pets and animals: Yes pets and animals: dog(s) history of recent travel: No sexually active: Yes Smoking Status: Never smoker alcohol intake: never substance use type: does not use well-balanced diet: about half the time caffeine: No eating out: rarely or never during the past year weight has: remained stable what type of physical activity do you participate in: yoga frequency: 3-4 times per week duration: 15-30 minutes/day blayne/pentecostalism: Druze seatbelt use: always do you feel safe at home: Yes additional social history: BF: Toby - Sheet Tester History 1 Elective abortions Hx Para 0 Spontaneous abortions Hx # Term Pregnancies Ectopic pregnancies Hx # Pregnancies Multiple births # of living children HPI 23 wk ob Details: NANY BAPTISTE is a 29 year old who presents for routine OB visit. OB Visit MARCELINA Calculator Estimated Delivery Date Method Current WG Current Estimate 02/09/25 Ultrasound #1 23w 2d Other Estimates 01/28/25 LMP (Certain) 25w 0d Expected Delivery Route/Plan Labor Preferences- CB/BF classes: [] labor support person: [] labor intervention preferences: [] pain management options preferred: [] cut cord/dad catch: [] : [] PP control planned: [] discussed possible routes of delivery and associated risks: [] special requests: [] Specific Issue/Plans Covid status: [] Flu vaccine: [] Tdap vaccine: [] Rhogam: [] LARC form signed: [] Problem list reviewed and updated with the most current plan of care details and appropriate orders placed. Relevant counseling for the gestational age provided. Continue routine care and follow up unless otherwise noted in visit notes/problem list details Initial Weight: Not Recorded Date -?-?-?-?-?-?-?-?-?-?-?-?- EGA Weight BP Urine Prot -?-?-?-?-?-?-?-?-?-?-?-?- Glucose FHR FuHt Pres Dilation -?-?-?-?-?-?-?-?-?-?-?-?- Effaced St Visit Note 07/21/24 -?-?--?-?-?-?-?-?-?-?-?-?- 11w 0d 139 lb 126/75 -?-?-?-?-?-?-?-?-?-?-?-?- 165 -?-?-?-?-?-?-?-?-?-?-?-?- SM- CRL cons wit h previous US 08/18/24 -?-?-?-?-?-?-?-?-?-?-?-?- 15w 0d 140 lb 2 oz 117/79 Nega tive -?-?-?-?-?-?-?-?-?-?-?-?- Negative 153 -?-?-?-?-?-?-?-?-?-?-?-?- KW- no vb/lof/ct x. MFM US ordered. 09/15/24 -?-?-?-?-?-?-?-?-?-?-?-?- 19w 0d 143 lb 6 oz 121/85 -?-?-?-?-?-?-?-?-?-?-?-?- 155 -?-?-?-?-?-?-?-?--?-?-?-?- KW- no vb/crampi ng. US today- having a GIRL! 10/15/24 -?-?-?-?-?-?-?-?-?-?-?-?- 23w 2d 150 lb 4 oz 116/77 -?-?-?-?-?-?-?-?-?-?-?-?- 145 24 -?-?-?-?-?-?-?-?-?-?-?-?- JV- no lof, vagi nal bleeding, or dec fm . 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 feels baby move more at night. 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 will follow throughout . h/o dermoid in past. (2) Supervision of normal : Status: Acute Comment: PRR MARCELINA 02/09/25, BF: Toby (3) : Status: Acute Qualifiers: Weeks of gestation: 23 weeks Qualified Code(s): Z3A.23 - 23 weeks gestation of Comment: genetic- low risk. carrier- neg, normal anatomy Orders: Orders POC Urinalysis 2 Dip (Clinic) Today CBC W/Diff, Automated Today Z34.90 - Encounter for supervision of normal , unspecified, unspecified trimester Glucose Challenge Gest 1H 50g Today Z13.1 - Encounter for screening for diabetes mellitus, Z34.90 - Encounter for supervision of normal , unspecified, unspecified trimester HIV Today Z34.90 - Encounter for supervision of normal , unspecified, unspecified trimester Syphilis Antibodies Today Z34.90 - Encounter for supervision of normal , unspecified, unspecified trimester 10/15/24 1530 <Electronically signed by Nadia Lee DO> Date _ [facility] Ryan [facility] Signature: Date (if applicable) CC: ~ [facility] Work Phone: 1(982) 225-482906-02-2025 [facility] [address], [place] [address] OFFICE VISIT Date of Service: 09/15/24 MR#: [id number] Acct: [id number] Name: NANY BAPTISTE Rep #: [id number] : 1995 Provider: WOODROW Martinez Age/Sex: 29/F Location: [facility] [place] Status: Signed Intake Vital Signs 07/21/24 10:22 08/18/24 15:09 09/15/24 11:56 Height 5 ft 2 in 5 ft 2 in 5 ft 2 in Weight: 143 lb 6 oz BMI 26.2 BP 121/85 H Intake Visit Reasons: 19 wk ob Chief Complaint: 19wk OB Creative Assistant Required: No Is patient in pain?: No Allergies No Known Allergies Allergy (Verified 09/15/24 11:54) Medications ?Medication ?Instructions ?Recorded ?Confirmed ?Type docosahexaenoic acid 200 mg mg PO 07/11/24 09/15/24 Hi kirstin capsule ( DHA) Last Menstrual Period: 04/23/24 : No PFSH PFSH Medical History Dermoid cyst Irregular menstrual cycle Family History Grandfather Dementia Social History adopted: No household members: significant other housing: apartment number of children: 0 current occupational status: employed 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 current occupational exposures/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: No pets and animals: Yes pets and animals: dog(s) history of recent travel: No sexually active: Yes Smoking Status: Never smoker alcohol intake: never substance use type: does not use well-balanced diet: about half the time caffeine: No eating out: rarely or never during the past year weight has: remained stable what type of physical activity do you participate in: yoga frequency: 3-4 times per week duration: 15-30 minutes/day blayne/pentecostalism: Druze seatbelt use: always do you feel safe at home: Yes additional social history: BF: Toby - Sheet Tester History 2 1 Elective abortions Hx Para 0 Spontaneous abortions Hx # Term Pregnancies Ectopic pregnancies Hx # Pregnancies Multiple births # of living children HPI 19 wk ob Details: NANY BAPTISTE is a 29 year old who presents for routine OB visit. OB Visit MARCELINA Calculator Estimated Delivery Date Method Current WG Current Estimate 02/09/25 Ultrasound #1 19w 0d Other Estimates 01/28/25 LMP (Certain) 20w 5d Expected Delivery Route/Plan Labor Preferences- CB/BF classes: [] labor support person: [] labor intervention preferences: [] pain management options preferred: [] cut cord/dad catch: [] : [] PP control planned: [] discussed possible routes of delivery and associated risks: [] special requests: [] Specific Issue/Plans Covid status: [] Flu vaccine: [] Tdap vaccine: [] Rhogam: [] LARC form signed: [] Problem list reviewed and updated with the most current plan of care details and appropriate ordersplaced. Relevant counseling for the gestational age provided. Continue routine care and follow up unless otherwise noted in visit notes/problem list details Initial Weight: Not Recorded Date -?-?-?-?-?-?-?-?-?-?-?-?- EGA Weight BP Urine Prot -?-?-?-?-?-?-?-?-?-?-?-?- Glucose FHR FuHt Pres Dilation -?-?-?-?-?-?-?-?-?-?-?-?- Effaced St Visit Note 07/21/24 -?-?-?-?-?-?-?-?-?-?-?-?- 11w 0d 139 lb 126/75 -?-?-?-?-?-?-?-?-?-?-?-?- 165 -?-?-?-?-?-?-?-?-?-?-?-?- SM- CRL cons wit h previous US 08/18/24 -?-?-?-?-?-?-?-?-?-?-?-?- 15w 0d 140 lb 2 oz 117/79 Nega tive -?-?-?-?-?-?-?-?-?-?-?-?- Negative 153 -?-?-?-?-?-?-?-?-?-?-?-?- KW- no vb/lof/ct x. MFM US ordered. 09/15/24 -?-?-?-?-?-?-?-?-?-?-?-?- 19w 0d 143 lb 6 oz 121/85 -?-?-?-?-?-?-?-?-?-?-?-?- 155 -?-?-?-?-?-?-?-?-?-?-?-?- KW- no vb/crampi ng. US today- having a GIRL! ACOG First Trimester First Trimester: Discussed ROS Const Reports system reviewed and no additional complaints, except as documented Eyes Reports system reviewed and no additional complaints, except as documented ENT Reports system reviewed and no additional complaints, except as documented Card Reports system reviewed and no additional complaints, except as documented Resp Reports system reviewed and no additional complaints, except as documented GI Reports system reviewed and no additional complaints, except as documented, Denies nausea and Denies vomiting Reports system reviewed and no additional complaints, except as documented Musc Reports system reviewed and no additional complaints, except as documented Skin/Breast Reports system reviewed and no additional complaints, except as documented Neuro Yes system reviewed and no additional complaints, except as documented Psych Reports system reviewed and no additional complaints, except as documented Endo Reports system reviewed and no additional complaints, except as documented Alvin/Lymph Reports system reviewed and no additional complaints, except as documented Aller/Immun Reports system reviewed and no additional complaints, except as documented Exam Const General: cooperative, healthy appearing and no acute distress Orientation: alert, awake and oriented x3 Neck Neck: normal visual inspection and full ROM Resp Effort & Inspection: normal respiratory effort, able to speak in complete sentences and symmetric chest movement GI Inspection: normal to inspection Palpation: soft and other Other: gravid Skin General: no rashes or lesions noted Neuro General: patient alert, patient awake and patient oriented x3 Cognition: normal cognition Speech: speech normal Gait: normal gait Motor: muscle tone normal throughout Extrem General: normal to inspection and full ROM Psych Appearance: grossly normal Mental Status: mental status grossly normal Mood: congruent mood Affect: normal affect Speech and Movement: speech and movement normal Attitude: cooperative Thought Process: normal Thought Content: normal Judgment: judgment good Coding Level of Care Code OB Routine Diagnoses Dermoid cyst D36.9 Supervision of normal Z34.90 19 weeks gestation of Z3A.19 Weeks of gestation: 19 weeks Assessment and Plan Assessment and Plan (1) Dermoid cyst: Status: Acute Comment: 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 will follow throughout . h/o dermoid in past. (2) Supervision of normal : Status: Acute Comment: PRR MARCELINA 02/09/25, BF: Toby (3) : Status: Acute Qualifiers: Weeks of gestation: 19 weeks Qualified Code(s): Z3A.19 - 19 weeks gestation of Comment: genetic- low risk. carrier- neg Plan Details Additional Comments: ACOG trimester education reviewed and updated. see problem list details for updated plan management information and see below for orders placed atthis visit. [place] appropriate handout given. 09/15/24 1205 s CNM> Date _ Reyna Rowlandigner Signature: Date (if applicable) CC: ~ [facility]04-07-2025 Evaluation note* Diagnosis Onset Date Resolution Status Admit Date Dermoid cyst acute July 21, 2 025 9:59am acute July 21 9:59am Supervision of normal acut e July 21, 2024 9:59am Dermoid cyst acute August 18 3:05pm acute August 18, 2024 3:05pm Supervision of normal acut e August 18, 2024 3:05pm Dermoid cyst acute September 15 11:54am acute September 15, 2024 11:54am Supervision of normal acut e September 15, 2024 11:54am [facility] Work Phone: 1(372) 823-275704-07-2025 Evaluation note* Diagnosis Onset Date Resolution Status Admit Date Dermoid cyst acute July 21, 2 025 9:59am acute July 21 9:59am Supervision of normal acut e July 21, 2024 9:59am Dermoid cyst acute August 18 3:05pm acute August 18, 2024 3:05pm Supervision of normal acut e August 18, 2024 3:05pm Dermoid cyst acute September 15 11:54am acute September 15, 2024 11:54am Supervision of normal acut e September 15, 2024 11:54am Dermoid cyst acute October 15 2:59pm acute October 15, 2024 2:59pm Supervision of normal acut e October 15, 2024 2:59pm [facility] Work Phone: 1(366) 800-760704-07-2025 Evaluation note* Diagnosis Onset Date Resolution Status Admit Date Dermoid cyst acute July 21, 2 025 9:59am acute July 21 9:59am Supervision of normal acut e July 21, 2024 9:59am Dermoid cyst acute August 18 3:05pm acute August 18, 2024 3:05pm Supervision of normal acut e August 18, 2024 3:05pm Dermoid cyst acute September 15 11:54am acute September 15, 2024 11:54am Supervision of normal acut e September 15, 2024 11:54am Dermoid cyst acute October 15 2:59pm acute October 15, 2024 2:59pm Supervision of normal acut e October 15, 2024 2:59pm Dermoid cyst acute November 11, 2 025 3:21pm acute November 11 3:21pm Supervision of normal acut e November 11, 2024 3:21pm [facility] Work Phone: 1(327) 652-450203-20-2025 Radiology Diagnostic study note [facility] Imaging Services [address] [place] [address] Transvaginal w/Preg US MR#: [id number] Acct: [id number] Name: NANY BAPTISTE Rep #: [id number] : 1995 F 28 From: Kim Boland MD PCP: Gayle Mcclain CNM Status: NOREEN DECKER Study:Transvaginal w/Preg US Date of Exam: 07/03/24 Exam# [id number] Ordering Dr: Reyna Martinez CNM PROCEDURE: TRANSVAGINAL W/PREG US (USTVAGP), 07/03/2024 REASON FOR EXAM: LLQ PAIN, HX OVARIAN CYST. Previously established dates unknown. TECHNIQUE: Grayscale and color/spectral doppler transabdominal and transvaginal pelvic ultrasound was performed with attention to the uterus and associated early gestation. COMPARISON: 05/15/2023 ; note that images only are available for review, the report is not available at the time of the dictation. FINDINGS: A single intrauterine gestational sac is identified. Gestational sac: 4.4 x 2.6 x 4.9 cm for mean sac diameter 4.0 cm, corresponding to 9 weeks 3 days. Emmet-rump length: 20 mm, corresponding to 8 weeks 3 days. Yolk sac: Present. Cardiac activity: 170 bpm, regular. Estimated delivery date (MARCELINA): 02/09/2025 by CRL. Uterus: Otherwise unremarkable, 10.2 x 8.2 x 6.2 cm. Cervix: Unremarkable. Right ovary: 6.6 x 5.2 x 3.6 cm (estimated volume 63.7 mL). Enlarged by mixed echogenicity mostly solid-appearing lesion with some associated shadowing measuring 4.4 x 4.1 x 3.1 cm, present previously and measuring 3.7 x 3.0 x 4.2 cm on 05/15/2023 Left ovary: 3.8 x 2.5 x 2.1 cm (estimated volume 10.4 mL), unremarkable. Other: No significant visualized pelvic free fluid. US/Transvaginal w/Preg US IMPRESSION: 1. Single viable intrauterine gestational sac with an estimated gestational age of 8 weeks 3 days corresponding to MARCELINA 02/09/2025. Previously established dates not provided. Correlate with clinical factors. 2. Borderline tachycardia is nonspecific. Recommend clinical follow-up. Additionally recommend routine complete anatomic survey at 20 weeks. 3. Slightly enlarged mostly solid-appearing RIGHT ovarian lesion which may reflect a dermoid (O-RADS 2). If not surgically excised, recommend follow-up ultrasound in 12 months per ACR O-RADS recommendations. Note that thisplaces the patient at risk for future ovarian torsion. 4. Additional description as above. Reading Location: [id number] CC: WOODROW Martinez; WOODROW Mcclain ~ Pharmaceutical Process Engineer: Signed [facility]01-17-2025 Evaluation note* Diagnosis Onset Date Resolution Status Admit Date Dermoid cyst acute April 2:26pm Irregular menstrual cycle acute May 02, 2024 2:26pm Women's annual routine gynecological examination acute 2024 2:26pm Encounter for routine gynecological examination noneactive 2024 2:26pm [facility] Work Phone: 1(332) 459-752201-17-2025 Evaluation note* Diagnosis Onset Date Resolution Status Admit Date Dermoid cyst inactive April 2:26pm Irregular menstrual cycle inactive May 02, 2024 2:26pm Women's annual routine gynecological examination inactive 2024 2:26pm Encounter for routine gynecological examination noneactive 2024 2:26pm Dermoid cyst acute July 21, 2 025 9:59am acute July 21 9:59am Supervision of normal acute July 21, 2024 9:59am [facility] Work Phone: 1(424) 684-514604-21-2023 NoteHNO ID: [id number] Author: Radha Membreno MD Service: ? Author [...] (97.9 ?F) (Temporal) Ht 159 cm (5' 2.6) Wt 59 kg (130 lb) LMP 07/31/2022 [...] exercise/therapy REVIEW OF TESTS: Labs Radha Membreno [facility]04-21-2023 History of Present illness Narrative* Radha Membreno MD - 08/04/2022 1:49 PM EDT SUBJECTIVE: Nany Baptiste is a 27 year [...] BP Cuff Size: Regular Adult) Pulse 77 Temp36.6 C (97.9 F) (Temporal) Ht 159 cm (5' 2.6) Wt 59 kg (130 lb) LMP 07/31/2022 [...] Labs Radha Membreno MD [place] [address]-09-2023 NotePap Smear Specimen AdequacyJanuary 2022 12:45pmComment.Satisfactory for evaluation. Endocervical and/or squamous metaplasticcells (endocervical component)are present.[facility] INTERFACED A#[id number]-Rittman HospitalComment on above: Satisfactory for evaluation. Endocervical and/or squamous metaplasticcells (endocervical component)are present.02-17-2022 Miscellaneous Notes* Telephone Encounter - Isabelle Mota - 02/17/2022 9:36 AM EDT Patient given message. Verbalized understanding. No further action needed. Isabelle Mota * Telephone Encounter - Radha Membreno MD - 02/16/2022 5:26 PM EDT Notify patient that tests are good. [facility] NoteHNO ID: [id number] Author: Radha Membreno MD Service: ? Author [...] exercise/therapy REVIEW OF TESTS: Labs Radha Membreno [facility]11-03-2022 Nurse Note* Isabelle Mota - 02/16/2022 1:35 PM EDT The patient is here for an injection of FLUZONE Dose: 0.5mL Route: Intramuscular Given without incident. 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 Membreno present in clinic at time of injection. Patient tolerated injection well Vaccine(s) administered as ordered. VIS for each vaccine administered was provided. Isabelle Mota documented in [facility]Mer[facility]11-[facility]-2022 History of Present illness Narrative* Radha Membreno MD - 02/16/2022 1:15 PM EDT SUBJECTIVE: Nany Baptiste is a 26 year [...] Labs Radha Membreno MD documented in [facility]Mer[facility]10-[facility] History of Present illness Narrative* Patient is here to establish care and to discuss following acute concerns. * Chest pain: * Was seen in the ED with normal evaluation. * Syncope: has had these episodes as a fresh [...] the syncope episode. Then she feels nauseous. * Chest pain: left sided - heavy weight sensation. Has shortness of breath. normally in the morning for the first 4 hours. Last three or four days has been having heavy feeling. Feels nauseous in the morning. this resolves within couple of hours. * Has been on control for the last three years. She had test which came back normal. 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 * 50 lbs 60 BMP * 120/76 mmhg * Follow up in [facility] Work Phone: Evaluation note* Diagnosis Syncope, unspecified syncope type- Primary Need for vaccination Need for prophylactic vaccination and inoculation against unspecified single disease [facility] Diagnosis Onset Date Resolution Status Irregular menstrual cycle [facility] Women's annual routine gynecological examination acute [facility] Work Phone: Evaluation note* Diagnosis Other chest pain- Primary [facility] Diagnosis Onset Date Resolution Status Irregular menstrual cycle ac [facility] Work Phone: Evaluation note* Diagnosis Onset Date Resolution Status Irregular menstrual cycle ac mook Dermoid cyst acute Irregular menstrual cycle [facility] Women's annual routine gynecological examination acute Encounter for routine gynecological examination noneactive [facility] Work Phone: History of Present illness Narrative* Patient is here [...] palpitations. * Follow up in 2-4 weeks. -[facility] Work Phone: progress note Author Reyna Martinez [facility] Note Date/Time September 15, 2024 12:05 pm [facility] [address], [address] [place] [address] OFFICE VISIT Date of Service: 09/15/24 MR#: [id number] Acct: [id number] Name: NANY BAPTISTE Rep #: [id number] : 1995 Provider: WOODROW Martinez Age/Sex: 29/F Location: [facility] [facility] Status: Signed Intake Vital Signs 07/21/24 10:22 08/18/24 15:09 09/15/24 11:56 Height 5 ft 2 in 5 ft 2 in 5 ft 2 in Weight: 143 lb 6 oz BMI 26.2 BP 121/85 H Intake Visit Reasons: 19 wk ob Chief Complaint: 19wk OB Creative Assistant Required: No Is patient in pain?: No Allergies No Known Allergies Allergy (Verified 09/15/24 11:54) Medications ?Medication ?Instructions ?Recorded ?Confirmed ?Type docosahexaenoic acid 200 mg mg PO 07/11/24 09/15/24 Hi story capsule ( DHA) Last Menstrual Period: 04/23/24 : No PFSH PFSH Medical History Dermoid cyst Irregular menstrual cycle Family History Grandfather Dementia Social History adopted: No household members: significant other housing: apartment number of children: 0 current occupational status: employed 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 current occupational exposures/hazards: No pets and animals: Yes pets and animals: dog(s) history of recent travel: No sexually active: Yes Smoking Status: Never smoker alcohol intake: never substance use type: does not use well-balanced diet: about half the time caffeine: No eating out: rarely or never during the past year weight has: remained stable what type of physical activity do you participate in: yoga frequency: 3-4 times per week duration: 15-30 minutes/day blayne/pentecostalism: Druze seatbelt use: always do you feel safe at home: Yes additional social history: BF: Toby - Sheet Tester History 2 1 Elective abortions Hx Para 0 Spontaneous abortions Hx # Term Pregnancies Ectopic pregnancies Hx # Pregnancies Multiple births # of living children HPI 19 wk ob Details: NANY BAPTISTE is a 29 year old who presents for routine OB visit. OB Visit MARCELINA Calculator Estimated Delivery Date Method Current WG Current Estimate 02/09/25 Ultrasound #1 19w 0d Other Estimates 01/28/25 LMP (Certain) 20w 5d Expected Delivery Route/Plan Labor Preferences- CB/BF classes: [] labor support person: [] labor intervention preferences: [] pain management options preferred: [] cut cord/dad catch: [] : [] PP control planned: [] discussed possible routes of delivery and associated risks: [] special requests: [] Specific Issue/Plans Covid status: [] Flu vaccine: [] Tdap vaccine: [] Rhogam: [] LARC form signed: [] Problem list reviewed and updated with the most current plan of care details and appropriate orders placed. Relevant counseling for the gestational age provided. Continue routine care and follow up unless otherwise noted in visit notes/problem list details Initial Weight: Not Recorded Date -?-?-?-?-?-?-?-?-?-?-?-?- EGA Weight BP Urine Prot -?-?-?-?-?-?-?-?-?-?-?-?- Glucose FHR FuHt Pres Dilation -?-?-?-?-?-?-?-?-?-?-?-?- Effaced St Visit Note 07/21/24 -?-?-?-?-?-?-?-?-?-?-?-?- 11w 0d 139 lb 126/75 -?-?-?-?-?-?-?-?-?-?-?-?- 165 -?-?-?-?-?-?-?-?-?-?-?-?- SM- CRL cons wit h previous US 08/18/24 -?-?-?-?-?-?-?-?-?-?-?-?- 15w 0d 140 lb 2 oz 117/79 Nega tive -?-?-?-?-?-?-?-?-?-?-?-?- Negative 153 -?-?-?-?-?-?-?-?-?-?-?-?- KW- no vb/lof/ct x. MFM US ordered. 09/15/24 -?-?-?-?-?-?-?-?-?-?-?-?- 19w 0d 143 lb 6 oz 121/85 -?-?-?-?-?-?-?-?-?-?-?-?- 155 -?-?-?-?-?-?-?-?-?-?-?-?- KW- no vb/crampi ng. US today- having a GIRL! ACOG First Trimester First Trimester: Discussed ROS Const Reports system reviewed and no additional complaints, except as documented Eyes Reports system reviewed and no additional complaints, except as documented ENT Reports system reviewed and no additional complaints, except as documented Card Reports system reviewed and no additional complaints, except as documented Resp Reports system reviewed and no additional complaints, except as documented GI Reports system reviewed and no additional complaints, except as documented, Denies nausea and Denies vomiting Reports system reviewed and no additional complaints, except as documented Musc Reports system reviewed and no additional complaints, except as documented Skin/Breast Reports system reviewed and no additional complaints, except as documented Neuro Yes system reviewed and no additional complaints, except as documented Psych Reports system reviewed and no additional complaints, except as documented Endo Reports system reviewed and no additional complaints, except as documented Alvin/Lymph Reports system reviewed and no additional complaints, except as documented Aller/Immun Reports system reviewed and no additional complaints, except as documented Exam Const General: cooperative, healthy appearing and no acute distress Orientation: alert, awake and oriented x3 Neck Neck: normal visual inspection and full ROM Resp Effort & Inspection: normal respiratory effort, able to speak in complete sentences and symmetric chest movement GI Inspection: normal to inspection Palpation: soft and other Other: gravid Skin General: no rashes or lesions noted Neuro General: patient alert, patient awake and patient oriented x3 Cognition: normal cognition Speech: speech normal Gait: normal gait Motor: muscle tone normal throughout Extrem General: normal to inspection and full ROM Psych Appearance: grossly normal Mental Status: mental status grossly normal Mood: congruent mood Affect: normal affect Speech and Movement: speech and movement normal Attitude: cooperative Thought Process: normal Thought Content: normal Judgment: judgment good Coding Level of Care Code OB Routine Diagnoses Dermoid cyst D36.9 Supervision of normal Z34.90 19 weeks gestation of Z3A.19 Weeks of gestation: 19 weeks Assessment and Plan Assessment and Plan (1) Dermoid cyst: Status: Acute Comment: 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 will follow throughout . h/o dermoid in past. (2) Supervision of normal : Status: Acute Comment: PRR MARCELINA 02/09/25, BF: Toby (3) : Status: Acute Qualifiers: Weeks of gestation: 19 weeks Qualified Code(s): Z3A.19 - 19 weeks gestation of Comment: genetic- low risk. carrier- neg Plan Details Additional Comments: ACOG trimester education reviewed and updated. see problem list details for updated plan management information and see below for orders placed at this visit. [place] appropriate handout given. 09/15/24 6256 <Electronically signed by Reyna balderas CNM> Date _ Reyna Martinez CNM Cosigner Signature: Date (if applicable) CC: ~ [facility] [employer] Work Phone: Reason for referral (narrative)* Outpatient Procedure (Routine) - Pending Review Specialty Diagnoses / Procedures Referred By Murphy [place] [facility] Diagnoses Other chest pain Procedures STRESS ECHO TREADMILL ECHO TTHRC R-T 2D W/WO M-MODE COMPLETE REST&ST Radha Membreno MD [address] [place] [address] [facility] [address] [place] [address] Referral ID Status Reason Start Date Expiration Date Visits Requested Visits Authorized [id number] Pending Review Auto-Generat ed Referral 08/04/2022 08/04/2023 1 1 [facility] for referral (narrative)No reason for referral information availableWProMedica Memorial Hospital Work Phone: Assessments Diagnosis Whiplash injury to neck, initial encounter Diagnosis Contusion of jaw, initial encounter Advance Directives Documents on File Type Date Recorded 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 ACP-Advance Directive ACP-Power of Manager Sap Summary Purpose Family History Unknown Family Member Name Dates Details POTS (postural orthostatic t achycardia syndrome): Mother Status:Active Family history of Alzheimer' s disease: Paternal Grandfather(V17.2, Z82.0) Status:Active Unknown Family Member Name Dates Details POTS (postural orthostatic t achycardia syndrome): Mother Status:Active Family history of Alzheimer' s disease: Paternal Grandfather(V17.2, Z82.0) Status:Active Relationship Condition Age at Onset Recorded Date/T kai grandfather Dementia Unknown Chief Complaint new pt, c/o left side chest pain was seen in ER Sat., brain fog, AM nausea,passed out in Jan ,hx ofconcussion.new pt, c/o left side chest pain was seen in ER Sat., brain fog, AM nausea,passed out in Jan ,hx ofconcussion. 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) Reason for Visit Irregular menstrual cycle Dermoid cyst Irregular menstrual cycle Women's annual routine gynecological examination Encounter for routine gynecological examination Chief Complaint Period Issues EORDERS Irregular menstruation, unspecified 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) Benign neoplasm, unspecified site Reason for Visit Irregular menstrual cycle Dermoid cyst Irregular menstrual cycle Women's annual routine gynecological examination Encounter for routine gynecological examination Chief Complaint Admit Date 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) May 02, 2024 2 :26pm AMENORRHEA LLQ PAIN July 03, 2024 1:0 5pm Reason for Visit Admit Date Dermoid cyst May 02, 2024 2 :26pm Irregular menstrual cycle May 02, 2024 2:26pm Women's annual routine gynecological exa mination May 02, 2024 2:26pm Encounter for routine gynecological exam ination May 02, 2024 2:26pm Chief Complaint Admit Date 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) May 02, 2024 2 :26pm AMENORRHEA LLQ PAIN July 03, 2024 1:0 5pm Amb Documentation July 11, 2024 9:4 2am NOB: LMP 1/8 -> US 07/03 8w3d; MARCELINA 02/09July 21, 2024 9:59am Reason for Visit Admit Date Dermoid cyst May 02, 2024 2 :26pm Irregular menstrual cycle May 02, 2024 2:26pm Women's annual routine gynecological exa mination May 02, 2024 2:26pm Encounter for routine gynecological exam ination May 02, 2024 2:26pm Dermoid cyst July 21, 2024 9:59 am July 21, 2024 9:59 am Supervision of normal July 9:59am Chief Complaint Admit Date AMENORRHEA LLQ PAIN July 03, 2024 1:0 5pm Amb Documentation July 11, 2024 9:4 2am NOB: LMP 1/8 -> US 20 8w3d; MARCELINA 02/09July 21, 2024 9:59am 15wk OB August 18, 2024 3:05pm 19 wk ob September 15, 2024 11:54 am Reason for Visit Admit Date Dermoid cyst July 21, 2024 9:59 am July 21, 2024 9:59 am Supervision of normal July 9:59am Dermoid cyst August 18, 2024 3:05pm August 18, 2024 3:05pm Supervision of normal August 18, 2024 3:05pm Dermoid cyst September 15, 2024 11:54 am September 15, 2024 11:54 am Supervision of normal September 11:54am Chief Complaint Admit Date AMENORRHEA LLQ PAIN July 03, 2024 1:0 5pm Amb Documentation July 11, 2024 9:4 2am NOB: LMP 1/8 -> US 07/03 8w3d; MARCELINA 02/09July 21, 2024 9:59am 15wk OB August 18, 2024 3:05pm 19 wk ob September 15, 2024 11:54 am 23 wk ob October 15, 2024 2:59p m Reason for Visit Admit Date Dermoid cyst July 21, 2024 9:59 am July 21, 2024 9:59 am Supervision of normal July 9:59am Dermoid cyst August 18, 2024 3:05pm August 18, 2024 3:05pm Supervision of normal August 18, 2024 3:05pm Dermoid cyst September 15, 2024 11:54 am September 15, 2024 11:54 am Supervision of normal September 11:54am Dermoid cyst October 15, 2024 2:59p m October 15, 2024 2:59p m Supervision of normal October 2:59pm Chief Complaint Admit Date NOB: LMP /8 -> US 07/03 8w3d; MARCELINA 02/09July 21, 2024 9:59am 15wk OB August 18, 2024 3:05pm 19 wk ob September 15, 2024 11:54 am 23 wk ob October 15, 2024 2:59p m 27wk ob/glucose November 11, 2024 3:21 pm Reason for Visit Admit Date Dermoid cyst July 21, 2024 9:59 am July 21, 2024 9:59 am Supervision of normal July 9:59am Dermoid cyst August 18, 2024 3:05pm August 18, 2024 3:05pm Supervision of normal August 18, 2024 3:05pm Dermoid cyst September 15, 2024 11:54 am September 15, 2024 11:54 am Supervision of normal September 11:54am Dermoid cyst October 15, 2024 2:59p m Irma 2nd, 2025 2:59p m Supervision of normal October 2:59pm Dermoid cyst November 11, 2024 3:21 pm November 11, 2024 3:21 pm Supervision of normal October 3:21pm Additional Source Comments Source Comments (unrecognize d section and content) In the event this informatio n is protected by the Federal Confidentiality of Alcohol and Drug Abuse Patient Records regulations: The Federal rules restrict any use of the information to criminally investigate or prosecute any alcohol or drug abuse patient.[facility] the event this information is protected by the Federal Confidentiality of Alcohol and Drug Abuse Patient Records regulations: The Federal rules restrict any use of the information to criminally investigate or prosecute any alcohol or drug abuse patient.[facility] the event this information is protected by the Federal Confidentiality of Alcohol and Drug Abuse Patient Records regulations: The Federal rules restrict any use of the information to criminally investigate or prosecute any alcohol or drug abuse patient.[facility] Reason for Visit (unrecogniz ed section and content) Reason Comments Follow Up Syncope Reason Comments Results Reason Comments Follow Up Care Teams (unrecognized sec tion and content) Avionics Engineer Relationship Specialty Start Date End Date Radha Membreno MD [address] [place] [address] PCP - General Family Medicine 02/16/22 Avionics Engineer Relationship Specialty Start Date End Date Radha Membreno MD [address] [place] [address] PCP - General Family Medicine 02/16/22 Team Status: Inactive Member Role Status Dates Gayle Mcclain CNM Attending Provider Active Team Status: Inactive Member Role Status Dates Gayle Mcclain CNM Attending Provider, Referring Pr ovider Active Avionics Engineer Relationship Specialty Start Date End Date Radha Membreno MD [address], [place] [address] PCP - General Family Medicine 02/16/22 Team Status: Active Member Role Status Dates No Primary Care Physician Primary Care Provider Active Team Status: Inactive Member Role Status Dates No Primary Care Physician Primary Care Provider Active Gayle Mcclain CNM Attending Provider, Referring Pr ovider Active Team Status: Active Member Role Status Dates No Primary Care Physician Primary Care Provider Active Gayle Mcclain CNM Attending Provider, Referring Pr ovider Active Team Status: Inactive Member Role Status Dates Gayle Mcclain CNM Attending Provider Active No Primary Care Physician Primary Care Provider, Refer ring Provider Active Team Status: Active Member Role Status Dates Gayle Mcclain CNM Primary Care Provider Active Team Status: Inactive Member Role Status Dates No Primary Care Physician Primary Care Provider Active Start: May 02, 2024 End: May 02, 2024 No Primary Care Physician Referring Provider Active Start: May 02, 2024 End: May 02, 2024 Gayle Mcclain CNM Attending Provider Active Start: May 02, 2024 End: May 02, 2024 Team Status: Inactive Member Role Status Dates Gayle Mcclain CNM Primary Care Provider Active Start: July 03, 2024 End: July 03, 2024 Reyna Martinez CNM Attending Provider Active S tart: July 03, 2024 End: July 03, 2024 Reyna Martinez CNM Referring Provider Active S tart: July 03, 2024 End: July 03, 2024 Team Status: Active Member Role Status Dates Gayle Mcclain CNM Primary Care Provider Active Start: July 11, 2024 Jinny Jordan RN Attending Provider Active St art: July 11, 2024 Team Status: Inactive Member Role Status Dates Gayle Mcclain CNM Primary Care Provider Active Start: July 21, 2024 End: July 21, 2024 Gayle Mcclain CNM Referring Provider Active Start: July 21, 2024 End: July 21, 2024 Dr. Siria Pandya MD Attending Provider Active Start: July 21, 2024 End: July 21, 2024 Team Status: Inactive Member Role Status Dates Gayle Mcclain CNM Primary Care Provider Active Start: July 21, 2024 End: July 21, 2024 Dr. Siria Pandya MD Attending Provider Active Start: July 21, 2024 End: July 21, 2024 Team Status: Inactive Member Role Status Dates Gayle Mcclain CNM Primary Care Provider Active Start: August 18, 2024 End: August 18, 2024 Gayle Mcclain CNM Referring Provider Active Start: August 18, 2024 End: August 18, 2024 Reyna Martinez CNM Attending Provider Active S tart: August 18, 2024 End: August 18, 2024 Team Status: Inactive Member Role Status Dates Gayle Mcclain CNM Primary Care Provider Active Start: September 15, 2024 End: September 15, 2024 Gayle Mcclain CNM Referring Provider Active Start: September 15, 2024 End: September 15, 2024 Reyna Martinez CNM Attending Provider Active S tart: September 15, 2024 End: September 15, 2024 Team Status: Active Member Role/Relationship Status Dates Gayle Mcclain CNM Primary Care Provider Active Team Status: Inactive Member Role/Relationship Status Dates Gayle Mcclain CNM Primary Care Provider Active Start: July 03, 2024 End: July 03, 2024 Reyna Martinez CNM Attending Provider Active S tart: July 03, 2024 End: July 03, 2024 Reyna Martinez CNM Referring Provider Active S tart: July 03, 2024 End: July 03, 2024 Team Status: Active Member Role/Relationship Status Dates Gayle Mcclain CNM Primary Care Provider Active Start: July 11, 2024 Jinny Jordan RN Attending Provider Active St art: July 11, 2024 Team Status: Inactive Member Role/Relationship Status Dates Gayle Mcclain CNM Primary Care Provider Active Start: July 21, 2024 End: July 21, 2024 Gayle Mcclain CNM Referring Provider Active Start: July 21, 2024 End: July 21, 2024 Dr. Siria Pandya MD Attending Provider Active Start: July 21, 2024 End: July 21, 2024 Team Status: Inactive Member Role/Relationship Status Dates Gayle Mcclain CNM Primary Care Provider Active Start: July 21, 2024 End: July 21, 2024 Dr. Siria Pandya MD Attending Provider Active Start: July 21, 2024 End: July 21, 2024 Team Status: Inactive Member Role/Relationship Status Dates Gayle Mcclain CNM Primary Care Provider Active Start: August 18, 2024 End: August 18, 2024 Gayle Mcclain CNM Referring Provider Active Start: August 18, 2024 End: August 18, 2024 Reyna Martinez CNM Attending Provider Active S tart: August 18, 2024 End: August 18, 2024 Team Status: Inactive Member Role/Relationship Status Dates Gayle Mcclain CNM Primary Care Provider Active Start: September 15, 2024 End: September 15, 2024 Gayle Mcclain CNM Referring Provider Active Start: September 15, 2024 End: September 15, 2024 Reyna Martinez CNM Attending Provider Active S tart: September 15, 2024 End: September 15, 2024 Team Status: Inactive Member Role/Relationship Status Dates Gayle Mcclain CNM Primary Care Provider Active Start: October 15, 2024 End: October 15, 2024 Gayle Mcclain CNM Referring Provider Active Start: October 15, 2024 End: October 15, 2024 Dr. Nadia Ryan DO Attending Provider Activ e Start: October 15, 2024 End: October 15, 2024 Team Status: Inactive Member Role/Relationship Status Dates Gayle Mcclain CNM Primary Care Provider Active Start: July 21, 2024 End: July 21, 2024 Gayle Mcclain CNM Referring Provider Active Start: July 21, 2024 End: July 21, 2024 Dr. Siria Pandya MD Attending Provider Active Start: July 21, 2024 End: July 21, 2024 Team Status: Inactive Member Role/Relationship Status Dates Gayle Mcclain CNM Primary Care Provider Active Start: July 21, 2024 End: July 21, 2024 Dr. Siria Pandya MD Attending Provider Active Start: July 21, 2024 End: July 21, 2024 Team Status: Inactive Member Role/Relationship Status Dates JHONNY QuinonezAngelo Primary Care Provider Active Start: August 18, 2024 End: August 18, 2024 Gaylepenny Mcclain CNM Referring Provider Active Start: August 18, 2024 End: August 18, 2024 Reyna Martinez CNM Attending Provider Active S tart: August 18, 2024 End: August 18, 2024 Team Status: Inactive Member Role/Relationship Status Dates Gayle Mcclain WOODROW Primary Care Provider Active Start: September 15, 2024 End: September 15, 2024 Gayle WOODROW Mcclain Referring Provider Active Start: September 15, 2024 End: September 15, 2024 Reyna Martinez CNM Attending Provider Active S tart: September 15, 2024 End: September 15, 2024 Team Status: Inactive Member Role/Relationship Status Dates Gayle WOODROW Mcclain Primary Care Provider Active Start: October 15, 2024 End: October 15, 2024 Gayle Mcclain CNM Referring Provider Active Start: October 15, 2024 End: October 15, 2024 Dr. Nadia Ryan DO Attending Provider Activ e Start: October 15, 2024 End: October 15, 2024 Team Status: Active Member Role/Relationship Status Dates Gayle Mcclain WOODROW Primary Care Provider Active Start: November 11, 2024 Dr. Naida Ryan DO Attending Provider Activ e Start: November 11, 2024 Dr. Nadia Ryan DO Referring Provider Activ e Start: November 11, 2024 Team Status: Inactive Member Role/Relationship Status Dates Gayle Mcclain WOODROW Primary Care Provider Active Start: November 11, 2024 End: November 11, 2024 Gayle Mcclain CNM Referring Provider Active Start: November 11, 2024 End: November 11, 2024 Anna Finch NP, DORTOHY-C Attending Provider Active Start: November 11, 2024 End: November 11, 2024 INFORMATION SOURCE (unrecogn ized section and content) DATE CREATED AUTHOR 03/24/2022 [facility] DATE CREATED AUTHOR AUTHOR'S ORGANIZ ATION 03/25/2022 [facility] DATE CREATED AUTHOR AUTHOR'S ORGANIZ ATION 03/26/2022 [employer] DATE CREATED AUTHOR AUTHOR'S ORGANIZ ATION 08/05/2022 [facility] DATE CREATED AUTHOR AUTHOR'S ORGANIZ ATION 09/15/2024 [facility] DATE CREATED AUTHOR AUTHOR'S ORGANIZ ATION 11/06/2024 [facility] Goals (unrecognized section and content) Goals may be documented in a n alternate sectionGoals may be documented in an alternate sectionGoals may be documented in an alternate sectionGoals may be documented in an alternate sectionGoals may be documented in an alternate sectionGoals may be documented in an alternate sectionGoals may be documented in an alternate sectionGoals may be documented in an alternate sectionGoals may be documented in an alternate sectionGoals may be documented in an alternate section FOR RECORDS PERTAINING TO PATIENTS WHO ARE [...] BE BASED ON THE PRIMARY CLINICAL RECORDS. [employer] [facility]. provides no warranty or guarantee of the accuracy or completeness of information in this document.
== END | disposition home or self-care (01) ==
LOC: LAB 14:40
PROVIDERS: PCP Registered Nurse; Referring Provider Obstetrics & Gynecology; Visit Provider Obstetrics & Gynecology
DX: Z34.90 Encounter for supervision of normal pregnancy, unspecified, unspecified trimester (principal); Z13.1 Encounter for screening for diabetes mellitus
CPT/HCPCS: 36415; 82950; 85025; 86703; 86780

== ENCOUNTER → 2025-01-12 | Outpatient (CLI) | payer OTHER, SELFPAY ==
--- OUTSIDE RECORDS SUMMARY | 2024-09-15 10:43 | XMS RPT_ITS ---
Author Name Auto Generated Organization OHIP Care Team Providers Care Parking Enforcer Name Role Phone NO PRIMARY CARE, Primary Care Unavailable NELSY FREEMAN Attending Unavailable REYNA MARTINEZ Referring Unavailable PROBLEMS No Problem Records Found PROCEDURES No Procedure Records Found RESULTS No Result Records Found ALLERGIES No Allergies Records Found ENCOUNTERS ADMIT/DISCHARGE ACCOUNT NUMBER ADMITTING ENCOUNTER CLASS LOCATION SOURCE 09/15/2024/09/15/2024 [id number] Ambulatory Carr lding:[facility] PAYERS ENCOUNTER GUARANTOR PAYER SUBSCRIBER SOURCE 09/15/2024 NANY BAPTISTEDOB: [place], [place] [address]Tad: [phone] Primary Insurance:[facility] Number: [id number] Date: NANY BAPTISTEDOB: [id number] [place] [address] [facility]
== END | disposition home or self-care (01) ==
LOC: LABSPEC 14:53
PROVIDERS: PCP Registered Nurse; Referring Provider Advanced Practice Midwife; Visit Provider Advanced Practice Midwife
DX: Z34.02 Encounter for supervision of normal first pregnancy, second trimester (principal)
CPT/HCPCS: 87081

== ENCOUNTER 2025-02-11 07:50 | Inpatient (IN) | payer OTHER, SELFPAY ==
[2025-02-11] VITALS (34 sets, daily range): BP systolic 101–131; BP diastolic 56–87; PULSE 71–120; RESP 14–18; TEMP 36.3–37.1; O2SAT 97–100; BMI 27.8
[2025-02-11 07:47] LABS: ROM Internal Control Test YES-OK TO RESULT pt. (Internal QC)
[2025-02-11 07:49] LABS: ROM Patient Test POSITIVE (Negative); Record Kit Lot#, ROM+ K3607
[2025-02-11] MEDS: Lactated Ringers 1,000 ML 50 ML IV (09:02)
[2025-02-11 09:18] LABS: Hematocrit 37.5 % (37-47); Hemoglobin 12.9 g/dL (12.0-15.0); Immature Granulocytes Count 0.400 X10^3/uL (0.0-0.0); Mean Corp Hgb Conc 34.4 g/dL (32-36); Mean Corpuscular Volume 88.0 fL (81-99); Mean Platelet Vol. 10.2 fl (6.2-12.0); NRBC Flagged by Analyzer 0 % (0-5); Platelet Count 270 K/mm3 (150-450); RBC Distribution Width CV 13.4 % (11.6-14.6); RBC Distribution Width SD 42.3 fl (35.1-43.9); Red Blood Count 4.26 M/mm3 (4.2-5.4); White Blood Count 17.7 K/mm3 (4.4-11.0)
[2025-02-11] MEDS: 0.9% Saline Lock 10 ML Syringe IV (09:19)
[2025-02-11 09:44] LABS: Syphilis Antibodies Nonreactive (Nonreactive)
--- NOTE | 2025-02-11 10:55 | PCM.HP.OB ---
HPI - General General Date of Admission: 02/11/25 HPI Narrative NANY BAPTISTE, is a 29 y/o @ 40 weeks 2 days who presents to L&D with SROM and contractions. She was found to be dilated 4 cm by the nurse and a forebag present. She wants to try to deliver without an epidural. Maternal Data Information MARCELINA Calculator Estimated Delivery Date Method Current WG Current Estimate 02/09/25 Ultrasound #1 40w 2d Other Estimates 01/28/25 LMP (Certain) 42w 0d PFSH PFSH Medical History (Updated 02/09/25 @ 08:57 by Ayah Mendoza) Dermoid cyst Irregular menstrual cycle Home Medications ?Medication ?Instructions ?Recorded ?Last Taken ?Type vits,calcium no.78-iron 1 tab PO DAILY 02/11/25 02/10/25 07:00 History fumarate-folic acid 29 mg-1 mg tablet (Prenatabs FA) Allergy/AdvReac Type Severity Reaction Status Date / Time No Known Allergies Allergy Verified 02/11/25 07:36 Family History Grandfather Dementia Surgical History (Updated 02/11/25 @ 08:43 by Amanda Vicente) History of surgery Social History adopted: No household members: significant other housing: apartment number of children: 0 current occupational status: employed 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 current occupational exposures/hazards: No pets and animals: Yes pets and animals: dog(s) history of recent travel: No sexually active: Yes Smoking Status: Never smoker alcohol intake: never substance use type: does not use well-balanced diet: about half the time caffeine: No eating out: rarely or never during the past year weight has: remained stable what type of physical activity do you participate in: yoga frequency: 3-4 times per week duration: 15-30 minutes/day blayne/mormonism: Zoroastrianism seatbelt use: always do you feel safe at home: Yes additional social history: BF: Toby - [employer] History 1 Elective abortions Hx Para 0 Spontaneous abortions Hx # Term Pregnancies Ectopic pregnancies Hx # Pregnancies Multiple births # of living children Visit Details Expected Delivery Route/Plan Labor Preferences- CB/BF classes: encouraged labor support person: Toby labor intervention preferences: [] pain management options preferred: limited cut cord/dad catch: no : yes PP control planned: discussed discussed possible routes of delivery and associated risks: [] special requests: [] Plans Covid status: [] Flu vaccine: declined Tdap vaccine: given Rhogam: na LARC form signed: yes movement and labor precautions reviewed. Problem list reviewed and updated with the most current plan of care details and appropriate orders placed. Relevant counseling for the gestational age provided. Continue routine care and follow up unless otherwise noted in visit notes/problem list details OB Flowsheet Initial Weight: Not Recorded Date <del>?</del> EGA Weight BP Urine Prot <del>?</del> Glucose FHR FuHt Pres Dilation <del>?</del> Effaced St Visit Note 07/21/24 <del>?</del> 11w 0d 139 lb 126/75 <del>?</del> 165 <del>?</del> SM- CRL cons with previous US 08/18/24 <del>?</del> 15w 0d 140 lb 2 oz 117/79 Negative <del>?</del> Negative 153 <del>?</del> KW- no vb/lof/ctx. MFM US ordered. 09/15/24 <del>?</del> 19w 0d 143 lb 6 oz 121/85 <del>?</del> 155 <del>?</del> KW- no vb/cramping. US today- having a GIRL! 10/15/24 <del>?</del> 23w 2d 150 lb 4 oz 116/77 Negative <del>?</del> Negative 145 24 <del>?</del> JV- no lof, vaginal bleeding, or dec fm . 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 feels baby move more at night. 11/11/24 <del>?</del> 27w 1d 154 lb 6 oz 116/74 Negative <del>?</del> Negative 141 27 <del>?</del> MH-NO VB, LOF. Good FM. Larc. 28 wk labs pending 12/03/24 <del>?</del> 30w 2d 157 lb 4 oz 118/77 Negative <del>?</del> Negative 143 31 <del>?</del> JV- having some discomfort over the are of her dermoid cyst. plan to re-evaluate after delivery unless needs . Torsion precautions discussed. no lof, vaginal bleeding, or dec fm. 12/17/24 <del>?</del> 32w 2d 158 lb 2 oz 120/70 Negative <del>?</del> Negative 160 33 <del>?</del> MH-No VB, LOF. Good FM. Previous pain over ovary has resolved. Tdap 12/31/24 <del>?</del> 34w 2d 160 lb 6 oz 120/76 Negative <del>?</del> Negative 145 34 Breech <del>?</del> SM- no vb lof good fm no regular ctx 01/12/25 <del>?</del> 36w 0d 160 lb 8 oz 128/79 Negative <del>?</del> Negative 157 36 Cephalic 1 <del>?</del> 70 -2 KW- no vb/lof/ctx. good fm. Cephalic on US today. GBS today 01/20/25 <del>?</del> 37w 1d 160 lb 8 oz 111/73 Negative <del>?</del> Negative 145 37 Cephalic <del>?</del> JV- no lof, vaginal bleeding, or dec fm. no complaints. declines exam today. declines flu vaccine. labor precautions discussed and hospital tour recommended. 01/26/25 <del>?</del> 38w 0d 160 lb 2 oz 119/79 Negative <del>?</del> Negative 145 38 Cephalic <del>?</del> KW- no vb/lof/ctx. good fm. has hospital tour today 02/04/25 <del>?</del> 39w 2d 161 lb 2 oz 112/73 Negative <del>?</del> Negative 140 39 Cephalic 2.5 <del>?</del> 70 -1 SM- no vb lof good fm no reuglar ctx co pelvic pressure 02/09/25 <del>?</del> 40w 0d 160 lb 6 oz 117/75 Negative <del>?</del> Negative 150 40 Cephalic <del>?</del> KW- no vb/lof/ctx. good fm. declines vaginal exam today and IOL at 41 weeks. will get US and schedule NSTs. may want membrane sweep at the end of the week. ROS Constitutional Constitutional: Denies change in weight, fatigue, fever(s), headache(s), poor appetite or weakness Eyes Eyes: Denies blurry vision, change in vision, seeing flashes or spots in vision ENT HEENT: Denies dizziness, headache(s), loss taste/smell or sore throat Cardiovascular Cardiovascular: Denies chest pain, dizziness, dyspnea, irregular heart rhythm, leg edema, palpitations, rapid heart rate or vomiting Respiratory/Chest Respiratory/Chest: Denies chest tightness, cough, dyspnea or breast pain Gastrointestinal Gastrointestinal: Denies abdominal pain, anorexia, constipation, cramping, diarrhea, hemorrhoids, vomiting or weight changes Genitourinary Genitourinary: Denies dysuria, flank pain, genital lesions, genital pain, urinary frequency or urinary urgency Musculoskeletal Musculoskeletal: Denies back pain, difficulty walking, joint pain, limited range of motion, muscle cramps or numbness Integumentary Integumentary: Denies lesions or unusual bruising Neurologic Neurologic: Denies abnormal movements, abnormal speech, dizziness, numbness, seizure-like activity or syncope Psychiatric Psychiatric: Denies anxiety, behavioral changes, change in appetite, change in libido, cognitive impairment, confusion, depression, difficulty concentrating, hallucinations or suicidal thoughts Endocrine Endocrinology: Denies excessive sweating, polydipsia or polyuria Hematologic/Lymphatic Hematologic/Lymphatic: Denies easy bleeding, easy bruising or lymphadenopathy Allergic/Immunologic Allergic/Immunologic: Denies itchy eyes, lip swelling, seasonal rhinorrhea, rhinitis, throat swelling, tongue swelling, eczemia, wheezing or asthma Vital Signs Vital Signs Vital Signs: 02/11/25 07:33 02/11/25 07:33 02/11/25 07:33 Temperature Temperature Source Temporal Pulse Rate 99 Respiratory Rate Blood Pressure BP Systolic BP Diastolic Pulse Ox 98 02/11/25 07:33 02/11/25 07:33 02/11/25 07:33 Temperature 97.6 F L Temperature Source Pulse Rate Respiratory Rate 16 Blood Pressure BP Systolic BP Diastolic Pulse Ox 98 02/11/25 07:34 02/11/25 07:34 02/11/25 09:16 Temperature Temperature Source Pulse Rate 90 Respiratory Rate Blood Pressure 125/79 H 107/74 BP Systolic 125 107 BP Diastolic 79 74 Pulse Ox 02/11/25 09:16 02/11/25 09:16 02/11/25 09:16 Temperature Temperature Source Temporal Pulse Rate 77 Respiratory Rate 16 Blood Pressure BP Systolic BP Diastolic Pulse Ox 02/11/25 09:16 02/11/25 09:35 02/11/25 09:35 Temperature 97.6 F L Temperature Source Pulse Rate 71 Respiratory Rate Blood Pressure 104/59 L BP Systolic 104 BP Diastolic 59 Pulse Ox 02/11/25 09:35 02/11/25 09:35 02/11/25 09:35 Temperature 97.6 F L Temperature Source Temporal Pulse Rate Respiratory Rate 16 Blood Pressure BP Systolic BP Diastolic Pulse Ox Weight Weight: 157 lb Body Mass Index (BMI) 27.8 Physical Exam Const alert, oriented x3, no apparent distress and healthy appearing General Appearance: cooperative; Negative for anxious HEENT normocephalic Face and Sinus: normal facial exam Eyes EOMs intact bilaterally and no scleral icterus General Eye: normal appearance of both eyes Neck full ROM and supple Lymph Lymphatic: no lymphadenopathy noted Resp normal respiratory effort Effort and Inspection: able to speak in complete sentences Cardio regular rate GI soft to palpation and non-tender Inspection: gravid Palpation: soft; Negative for tender Back/Spine no CVA tenderness Extremity normal to inspection, full ROM and no clubbing, cyanosis or edema General Extremity: Negative for calf tenderness or edema Skin Lesions: no lesions Rashes: no rashes Psych mental status grossly normal Labs Labs Labs: Blood Type O POSITIVE Antibody Screen NEGATIVE Hct, (37-47) 37.5 % Hgb, (12.0-15.0) 12.9 g/dL Obstetrics Ultrasound Syphilis Total Ab, (Nonreactive) Nonreactive Rubella IgG Antibody, (Nonreactive) REAC Hep Bs Antigen, (Nonreactive) Nonreactive Hepatitis C Antibody, (Nonreactive) Nonreactive Chlamydia DNA (JAEL), (Negative) Negative N.gonorrhoeae DNA (JAEL), (Negative) Negative HIV 1&2 Antibody, (Nonreactive) Nonreactive Glucose 1 Hr 50 gm, (70-140) 99 mg/dL Assessment & Plan (1) Dermoid cyst: COMMENT: right ovarian dermoid seen 4-5 cm seen 07/03-stable. will follow throughout . h/o dermoid in past. (2) Supervision of normal : QUALIFIERS: Normal : normal first Trimester: second trimester Qualified Code(s): Z34.02 - Encounter for supervision of normal first , second trimester COMMENT: PRR MARCELINA 02/09/25, girl BF: Toby (3) : QUALIFIERS: Weeks of gestation: 40 weeks Qualified Code(s): Z3A.40 - 40 weeks gestation of COMMENT: GBS neg, genetic- low risk. carrier- neg, normal anatomy PLAN: Plan Patient presents IAL, plan expectant management for , pitocin/AROM PRN if needed. Pain management:unsure GBS negative . forebag ruptured, clear fluid returned. Management of any complications: none I have reviewed the [facility] and made any clinically relevant updates.
[2025-02-11] MEDS: fentaNYL-bupivacaine (epidural) 100 ML BAG EPIDURAL ×3 (11:53→20:42)
[2025-02-11] MEDS: Lactated Ringers 1,000 ML 200 ML IV ×2 (12:09→17:05)
[2025-02-11] MEDS: Oxytocin 15 Units/NS 250ml 15 UNITS/250 ML IV.SOLN 2 UNITS IV (18:04)
--- NOTE | 2025-02-11 20:51 | PCM.PN.BLA ---
Progress Note patient pushing without difficulty. effort is moderate current tracing: FHT: Moderate variability reactive no decelerations category I tracing [place]: q2-3 Contractions A/P: SROM, active labor. pitocin started at 2 mu/min at around 1800 continue pushing
[2025-02-11] MEDS: Lactated Ringers 1,000 ML 1000 ML IV (23:06)
[2025-02-11] MEDS: Cefazolin 1 GM/5 ML Vial 2 GM IV (23:06)
[2025-02-11] MEDS: fentaNYL 100 MCG/2 ML Ampul EPIDURAL (23:07)
[2025-02-11] MEDS: Lidocaine 2% (5ml sdv) 5 ML VIAL.MPF 20 ML EPIDURAL (23:12)
[2025-02-11] MEDS: Oxytocin 15 Units/NS 250ml 15 UNITS/250 ML IV.SOLN 83 UNITS IV (23:30)
[2025-02-11] MEDS: Midazolam 2 MG/2 ML Syringe 1 MG IV (23:31)
[2025-02-11] MEDS: TRANEXAMIC ACID 1,000 MG/10 ML ML 1000 MG IV (23:37)
[2025-02-12] VITALS (16 sets, daily range): BP systolic 94–126; BP diastolic 54–88; PULSE 70–98; RESP 14–20; TEMP 35.9–36.8; O2SAT 95–100
--- NOTE | 2025-02-12 00:09 | NURSING ---
decision made to stop use with vacuum due to pt bleeding vaginally
--- NOTE | 2025-02-12 00:34 | EX.PCM.OBRPT ---
Assessment & Plan (1) Failure of descent in labor, delivered, current hospitalization: (2) Failed vacuum extraction delivery: (3) Dermoid cyst: COMMENT: right ovarian dermoid seen 4-5 cm seen 07/03-stable. will follow throughout . h/o dermoid in past. (4) Supervision of normal : QUALIFIERS: Normal : normal first Trimester: second trimester Qualified Code(s): Z34.02 - Encounter for supervision of normal first , second trimester COMMENT: PRR MARCELINA 02/09/25, girl BF: Toby (5) : QUALIFIERS: Weeks of gestation: 40 weeks Qualified Code(s): Z3A.40 - 40 weeks gestation of COMMENT: GBS neg, genetic- low risk. carrier- neg, normal anatomy Maternal Data Information MARCELINA Calculator Estimated Delivery Date Method Current WG Current Estimate 02/09/25 Ultrasound #1 40w 3d Other Estimates 01/28/25 LMP (Certain) 42w 1d Final MARCELINA: 02/09/25 Final MARCELINA Source: LMP Gestational age: 40 weeks 3 days [place] Doctor Who Attended Delivery: Sukhjinder Cannon Operative Report (OB) Procedure Details Date of Procedure: 02/12/25 Procedure Start Time: 23:18 Procedure Stop Time: 00:31 Time of Delivery: 23:26 Pre-Operative Diagnosis: Protracted Descent, Failed vaccuum extraction and Other (right ovarian dermoid cyst ) Other Pre-Operative diagnosis: none Post-Operative Diagnosis: Same as Pre-operative diagnosis Classification: ISABELA Type of Anesthesia: Epidural Antibiotic Given: Ancef 2 grams IV x1 and Zithromax 500 mg/5 mL X1 Drain: Parekh to straight drain Estimated Blood Loss: 800cc Findings Description of surgery: The patient is a 29 y/o @ 40 weeks gestation who presented for to labor and delivery with spontaneous rupture of membranes on the morning of 02/11/2025. She progressed to complete by 8 PM and pushed for a little over 2 hours. She complained of feeling fatigued and requested a vacuum extraction. Vaginal tissue at this time was noted to be extremely edematous despite use of ice throughout the last hour of pushing. The risks of vaginal bleeding were discussed with the patient. The vacuum was applied to the infant's head and 1 successful pull was performed however only brought the down to a +3 station. After this pulled the vacuum was released while waiting for another contraction. At this time a moderate amount of vaginal bleeding was noted coming from the vaginal sidewalls. A second attempt with the vacuum was performed but due to the amount of blood the vacuum was unable to stick to the 's head. The vacuum was removed and the decision was made to proceed with a section. First the vaginal sidewall lacerations were attempted to be repaired in was without success. The vagina was packed with sterile gauze and the patient was brought to the operating room. Epidural anesthesia was found to be adequate Parekh catheter was placed. The patient was placed in the dorsal supine position with leftward tilt. Patient was prepped and draped in the normal sterile fashion. Pfannenstiel skin incision was made with the scalpel and carried through to the underlying layer of fascia with the scalpel. Fascia was nicked in the midline and the incision extended laterally. The rectus bellies were dissected off superiorly and inferiorly with out complication both sharply and bluntly. The peritoneum was entered digitally. The incision was stretched and a low transverse uterine incision was made with the scalpel. The first thing to present through the uterine incision was the 's right arm. An attempt was made to deliver the infant breech both legs were identified both feet were pulled through the incision but due to the compacted position this was unsuccessful the infant's feet were tucked back and the uterus and the head was delivered with some moderate difficulty breaking the suction from the pelvis. The infant's head was delivered followed by the anterior and posterior shoulders without complication the rest of the infant delivered. The cord was clamped and cut and the infant was handed off to awaiting nurse. The placenta was delivered manually immediately following and was noted to be intact and have a three-vessel cord. The uterus was exteriorized cleared of all clots and debris, and the incision was closed in a double layer closure using #1 Vicryl and #1 Monocryl. Hemoblast was applied to the uterine incision for excellent hemostasis. The left ovary and fallopian tubes were noted to be within normal limits. There was a right ovarian dermoid cyst that was previously identified on ultrasound and confirmed at this time. The patient requested removal of the dermoid cyst. The ovary was first incised using a Bovie cautery. The edges of the cyst were using Allis clamps and the cyst was peeled out. Thick greasy yellow fluid first expelled from the cyst wall. Hair and sebaceous material were noted. The cyst and its contents were passed off for pathology analysis and the ovary was cauterized of small capillaries that were bleeding. The ovary was then suture-ligated with a 4-0 Vicryl suture. The uterus was returned to the maternal abdomen and gutters were cleared of all clots and debris. The peritoneum was closed with 3-0 Monocryl in a running fashion. Fascia was closed with 0 PDS in a running fashion. Subcutaneous tissue was copiously irrigated and the skin was closed with 3-0 Monocryl in a subcuticular fashion. Mepilex dressing was applied without complication. Next the legs were placed in stirrups and the vaginal packing was removed from the vagina. A midline laceration was noted over the vaginal mucosa overlying the rectum. This was repaired using a 4-0 Monocryl suture. Of right vaginal wall laceration was also noted and was repaired with a 4-0 Monocryl suture. Both lacerations were noted to be small but bleeding quite rapidly. Once these lacerations were repaired excellent hemostasis was noted. Remaining hemoblast was sprinkled on the vaginal mucosa and pressure was held to create better hemostasis from the small lacerations throughout the vagina that were too small to suture. The patient tolerated the procedure well sponge lap and needle counts were correct x 2 and she is now being brought to the recovery room in stable condition Surgical findings: Viable female , right dermoid cyst Presentation: Vertex Amniotic Membrane Rupture Type: Spontaneous Amniotic Fluid Description: Clear Placental Delivery Description: Manual Removal Placenta Disposition: [facility] Specimen collected: Yes Description of specimen(s) removed: Right ovarian cyst Cord Vessel Description: 3 Vessels Cord Entanglement: None A gender: Female (1 minute): 8 (5 minute): 10 Delayed Cord Clamping: No Flat Clothier spool sander: Yes Hot Mill Observer: Nafisa Agudelo Tasks completed by assistant corporation counsel: Retracting and Other (fundal pressure, suction ) Additional ict sales assistant?: No Complications Complications: No Admit VTE Documentation VTE Present on Admission: No Multi Select Codes Urinary/Genital Urinary/Genital CPT Codes: 59136 Ovarian cystectomy laparotomy [place] [address] Delivery [facility]
--- NOTE | 2025-02-12 00:52 | DCINST_ITS ---
Discharge Instructions
--- NOTE | 2025-02-12 00:52 | PCM.DC ---
Discharge Instructions DC O2, CPAP, BIPAP needs Home O2 Discharge instructions: No Dressing / Incision Discharge Activity: May Not Drive (for 2 weeks or while taking narcotic pain medications.), May Shower and May Take a Tub Bath (in 7 days.) May resume sexual activity in: 4-6 weeks Weight Bearing Status: Full weight bearing Lifting Restrictions: 20 pounds Dressing / Incision Call your doctor if your incision/area has: Continuous Slow Oozing, Sudden Increased Bleeding, Increased Pain/ Swelling, Increased Redness and Foul Smelling Discharge Call your doctor if you observe: Fever of 101 or Higher and Using more than 1 pad per hour Suture Line Care: Avoid Pulling/Pushing and Avoid Pinching/Bending Cleanse incision/area with: Soap & Water and Keep Dressing Clean & Dry Follow Up Care Please Follow Up With: Nadia Ryan DO When: Call [phone] to make an appointment for an incision check in 1-2 weeks. Test Results: Test results from this visit will be discussed in further detail at your follow-up appointment, if applicable. Discharge Plan Admission Admit Date/Time: 02/11/25 07:50 Primary Reason for Your Visit: section and removal of dermoid cyst Attending Provider: Nadia Ryan Discharge Orders/Prescriptions Prescriptions: New ibuprofen 800 mg tablet 800 mg PO Q8H PRN (Reason: pain) Qty: 30 0RF oxycodone-acetaminophen [Percocet] 5-325 mg tablet 1 tab PO Q4H PRN (Reason: pain) 7 Days Qty: 20 0RF Continued Prenatabs FA 29-1 mg tablet 1 tab PO DAILY Disposition Disposition (needs filled in before D/C Order can be placed): Home, Self Care
[2025-02-12] MEDS: Lactated Ringers 1,000 ML 100 ML IV ×2 (00:55→12:30)
[2025-02-12] MEDS: Ketorolac 30 MG/ML Syringe IV ×4 (02:10→20:08)
--- NOTE | 2025-02-12 03:29 | CYST_PTH ---
PATIENT: NANY BAPTISTE LOC: [facility] U#:[id number] AGE/SX: 29/F ROOM: WP009 RE02/11/[address]: Dr. Nadia Ryan DO : 1995 BED: 1 DIS: 02/14/2025 SPEC #: [id number] RECD: 02/12/25 05:53 STATUS: ABDIRIZAK KANDY #: [id number] BRITTNEE: 02/12/25 03:[address]: Nadia Ryan DEPT: SURGICAL PATHOLOGY RECD BY: Carlos Clark Tissues: A - CYST Procedures: Surgery Specimen Level V HEADER OPERATION: Primary section PRE-OP DIAGNOSIS: Dermoid cyst TISSUE SUBMITTED: A- Dermoid cyst MICROSCOPIC DIAGNOSIS A. Right ovary, dermoid cyst, excision: - Mature cystic teratoma. MICROSCOPIC DESCRIPTION Slides are reviewed. GROSS DESCRIPTION A. Received in formalin labeled with the patient's name and date of . Designated as R ovary dermoid cyst is 17.8 g, previously disrupted cyst expelling strands of dark brown of hair, collectively measuring 4.9 x 4.4 x 2.3 cm. The external surfaces are echeverria-pink and granular with focal nodules, 0.2 cm to 0.4 cm. Opening reveals a smooth to slightly wrinkled cyst wall with adherent hair and a 2.3 x 2.1 cm portion of hairbearing skin with fatty cut surfaces containing portions of apparent bone. No ovarian parenchyma is grossly identified. Steam Drier Operator sections are submitted in 5 cassettes, following decalcification of cassette A5, as follows: A1-A2: Cyst wall with external nodulesA3-A4: Cyst wall with hairbearing skinA5: Cyst wall with hairbearing skin and apparent bone (decalcification) WI 02/12/2025 CPT:93485
[2025-02-12 06:14] LABS: Pathology Specimen OB SEE PATHOLOGY REPORT
[2025-02-12 06:52] LABS: Hematocrit 30.4 % (37-47); Hemoglobin 10.6 g/dL (12.0-15.0); Mean Corp Hgb Conc 34.9 g/dL (32-36); Mean Corpuscular Volume 86.1 fL (81-99); Mean Platelet Vol. 9.9 fl (6.2-12.0); POSITIVE COUNT YES; Platelet Count 238 K/mm3 (150-450); RBC Distribution Width CV 13.5 % (11.6-14.6); RBC Distribution Width SD 41.6 fl (35.1-43.9); Red Blood Count 3.53 M/mm3 (4.2-5.4)
[2025-02-12 06:55] LABS: White Blood Count 33.9 K/mm3 (4.4-11.0)
[2025-02-12 06:56] LABS: Scan Indicated on CBC? Y/N YES- FLAGS NOTED
[2025-02-12 07:33] LABS: Differential Comment SCANNED
[2025-02-12] MEDS: 0.9% Saline Lock 10 ML Syringe IV ×2 (07:59→14:02)
[2025-02-12] MEDS: Ampicillin 2 GM in 0.9% Normal Saline (100mL MB+) 100 ML IV ×3 (08:17→21:22)
--- NOTE | 2025-02-12 08:53 | PCM.RX.CS ---
Consult Antibiotic Management Pharmacy has been consulted to manage selected antibiotic: Gentamicin Type of Intervention Type of Consult: New start Suspected Infection Suspected Infection: Sepsis ( sepsis rule-out) Prior Doses of Antibiotics Prior Doses of Antibiotics Received/Current Regimen: NONE Labs Labs: RANDOM 10 HOURS POST DOSE Dosing Weight Weight used for dosin kg Estimated Creatinine Clearance Estimated Creatinine Clearance: 116 ML/MIN Goal Trough Goal Trough: Other (PER NONMOGRAM) Pharmacy Plan for Drug Dosing Pharmacy Plan for Drug Dosing: NEW START IV GENTAMICIN Consulting Physician: DECLAN ARREOLA Indication: Sepsis rule out Goal Trough: per nomogram SrCr: 0.69 mg/dl CrCl: 116 ml/min (Adjusted body weight) Gentamicin dose: 5mg/kg (300 mg) Pending Level: 2020 02/12/2025 Pharmacy Service will continue to monitor and adjust dosing as required. Follow-Up Labs Follow-Up Labs: Peak: Gentamicin Date/Time Labs Ordered Labs to be done on [date and time ordered]: 02/12/2025 @2020
[2025-02-12] MEDS: Clindamycin 900 MG/50 ML BAG 75 MG IV ×2 (09:33→17:05)
[2025-02-12 10:07] LABS: Estimated Creatinine Clearance 115.86 ml/min (50-250)
[2025-02-12] MEDS: Gentamicin IV 300 MG in Dextrose 5%-Water (50mL Bag) 50 ML 100 MG IVPB (10:21)
[2025-02-12 11:17] LABS: Hematocrit 27.3 % (37-47); Hemoglobin 9.7 g/dL (12.0-15.0); Immature Granulocytes Count 0.300 X10^3/uL (0.0-0.0); Mean Corp Hgb Conc 35.5 g/dL (32-36); Mean Corpuscular Volume 86.1 fL (81-99); Mean Platelet Vol. 10.1 fl (6.2-12.0); NRBC Flagged by Analyzer 0 % (0-5); POSITIVE DIFFERENTIAL YES; Platelet Count 232 K/mm3 (150-450); RBC Distribution Width CV 13.6 % (11.6-14.6); RBC Distribution Width SD 42.4 fl (35.1-43.9); Red Blood Count 3.17 M/mm3 (4.2-5.4); White Blood Count 29.4 K/mm3 (4.4-11.0)
[2025-02-12 11:19] LABS: Differential Indicated SCAN CRITERIA MET
[2025-02-12 11:34] LABS: Differential Comment SCANNED
[2025-02-12] MEDS: Senna/Docusate Sodium 1 Tablet PO (12:30)
[2025-02-12 22:03] LABS: Gentamicin, Random 1.3 ug/mL
[2025-02-12 22:07] LABS: Hematocrit 25.5 % (37-47); Hemoglobin 8.8 g/dL (12.0-15.0); Immature Granulocytes Count 0.430 X10^3/uL (0.0-0.0); Mean Corp Hgb Conc 34.5 g/dL (32-36); Mean Corpuscular Volume 88.2 fL (81-99); Mean Platelet Vol. 10.1 fl (6.2-12.0); NRBC Flagged by Analyzer 0 % (0-5); POSITIVE DIFFERENTIAL YES; Platelet Count 247 K/mm3 (150-450); RBC Distribution Width CV 13.7 % (11.6-14.6); RBC Distribution Width SD 44.1 fl (35.1-43.9); Red Blood Count 2.89 M/mm3 (4.2-5.4); White Blood Count 27.5 K/mm3 (4.4-11.0)
[2025-02-12 22:30] LABS: Differential Indicated SCAN CRITERIA MET
[2025-02-13] MEDS: Clindamycin 900 MG/50 ML BAG 75 MG IV (00:31)
[2025-02-13 00:39] LABS: Differential Comment SCANNED
[2025-02-13 01:45] VITALS: BP 91/61; PULSE 75; RESP 14; TEMP 36.4; O2SAT 98
--- NOTE | 2025-02-13 02:00 | PCM.RX.CS ---
Consult Antibiotic Management Pharmacy has been consulted to manage selected antibiotic: Gentamicin Type of Intervention Type of Consult: Follow-up Labs Labs: Creatinine 0.69 mg/dL (0.70-1.20) L 02/12/25 08:45 Est GFR (MDRD) Non-Af 122 (>60) 02/12/25 08:45 Random Gentamicin 1.3 ug/mL 02/12/25 20:16 Pharmacy Plan for Drug Dosing Pharmacy Plan for Drug Dosing: Pharmacy Service will continue to monitor and adjust dosing as required. RANDOM LEVEL 1.3 @ 10 HOURS. NO CHANGES, FOLLOW UP RANDOM LEVEL IN 5 DAYS Follow-Up Labs Follow-Up Labs: Trough: Gentamicin Date/Time Labs Ordered Labs to be done on [date and time ordered]: 02/17 @ 2019
[2025-02-13] MEDS: Ampicillin 2 GM in 0.9% Normal Saline (100mL MB+) 100 ML IV (02:55)
[2025-02-13 08:05] VITALS: BP 93/60; PULSE 71; RESP 16; TEMP 36.6; O2SAT 97
[2025-02-13] MEDS: Senna/Docusate Sodium 1 Tablet PO (08:12)
[2025-02-13] MEDS: GLYCERIN/WITCH HAZEL (TUCKS) MED..PAD 1 EACH TOPICAL (12:29)
[2025-02-13] MEDS: SELF ADMINISTRATION OF MEDS 1 EACH NOTE (12:29)
--- NOTE | 2025-02-13 12:57 | PCM.PN.OB ---
Subjective Subjective Patient doing well without complaints. Tolerating PO. Ambulating and voiding without difficulty. feeding well. Denies chest pain, shortness of breath, calf pain/swelling, fevers, chills, lightheadedness. Objective Data Objective Data Vital Signs: Vital Signs Temp Pulse Resp BP Pulse Ox O2 Del Method 97.9 F 71 16 93/60 97 Room Air 02/13/25 08:05 02/13/25 08:05 02/13/25 08:05 02/13/25 08:05 02/13/25 08:05 02/13/25 08:05 Oxygen Delivery Method Room Air Weight: 157 lb Body Mass Index (BMI) 27.8 Intake & Output: Intake and Output for Last 24 Hours 02/11/25 02/12/25 02/13/25 23:59 23:59 23:59 Intake Total 1843.67 / 1843.67 2832.5 / 2832.5 1025.0 / 1025.0 Output Total 2150 / 2150 2450 / 2450 800 / 800 Balance -306.33 / -306.33 382.5 / 382.5 225.0 / 225.0 Lab / Micro Data 02/12/25 21:55 02/12/25 08:45 Labs: Laboratory Results - last 24 hr 02/12/25 20:16: Random Gentamicin 1.3 02/12/25 21:55: WBC 27.5 H, RBC 2.89 L, Hgb 8.8 L, Hct 25.5 L, MCV 88.2, MCH 30.4, MCHC 34.5, RDW Std Deviation 44.1 H, RDW Coeff of Mariia 13.7, Plt Count 247, MPV 10.1, Immature Gran % (Auto) 1.600 H, Neut % (Auto) 78.9 H, Lymph % (Auto) 11.6 L, [place] % (Auto) 7.3, Eos % (Auto) 0.3, Baso % (Auto) 0.3, Absolute Neuts (auto) 21.7 H, Absolute Lymphs (auto) 3.18, Nucleated RBC % 0, Differential Comment SCANNED ROS Constitutional Constitutional: Reports systems reviewed and no addt'l complaints, except as documented Cardiovascular Cardiovascular: Reports systems reviewed and no addt'l complaints, except as documented Respiratory/Chest Respiratory/Chest: Reports systems reviewed and no addt'l complaints, except as documented Gastrointestinal Gastrointestinal: Reports systems reviewed and no addt'l complaints, except as documented Physical Exam Const alert, oriented x3 and no apparent distress HEENT Head and Scalp: atraumatic Resp normal respiratory effort GI soft to palpation and non-tender Inspection: incision intact, healing well and drainage (none) Bimanual Exam - Vag & Uterus: uterus non-tender Uterus Palpation: uterus fundus firm (below Umbilicus) Assessment & Plan (1) Leukocytosis: COMMENT: blood and urine cultures sent, 24 hours of antibiotics. afebrile. (2) Status post section: PLAN: Plan s/p LTCS PPD # 1 1. routine post care 2. breast feeding- support given 3. rh positive 4. rubella immune finish 24 hours antibiotics and monitor temps todya, repeat cbc tomorrow. wait cultures
[2025-02-13 15:00] VITALS: BP 91/58; PULSE 69; RESP 16; TEMP 36.2; O2SAT 100
[2025-02-13] MEDS: Lactated Ringers 1,000 ML 999 ML IV (18:06)
[2025-02-13] MEDS: 0.9% Saline Lock 10 ML Syringe IV ×2 (18:07→18:13)
[2025-02-13 20:45] VITALS: BP 105/61; PULSE 65; RESP 16; TEMP 36.3; O2SAT 97
[2025-02-14 00:02] VITALS: BP 102/66; PULSE 78; RESP 16; O2SAT 98
[2025-02-14 02:46] VITALS: BP 103/73; PULSE 75; RESP 16; TEMP 36.5; O2SAT 97
[2025-02-14 05:48] LABS: Hematocrit 25.2 % (37-47); Hemoglobin 8.5 g/dL (12.0-15.0); Mean Corp Hgb Conc 33.7 g/dL (32-36); Mean Corpuscular Volume 87.2 fL (81-99); Mean Platelet Vol. 10.0 fl (6.2-12.0); Platelet Count 244 K/mm3 (150-450); RBC Distribution Width CV 13.7 % (11.6-14.6); RBC Distribution Width SD 43.5 fl (35.1-43.9); Red Blood Count 2.89 M/mm3 (4.2-5.4); White Blood Count 17.0 K/mm3 (4.4-11.0)
[2025-02-14 08:15] VITALS: BP 100/68; PULSE 79; RESP 16; TEMP 36.2; O2SAT 99
[2025-02-14] MEDS: Senna/Docusate Sodium 1 Tablet PO (08:57)
--- NOTE | 2025-02-14 09:45 | PCM.PN.CNM ---
Subjective Subjective Calm, cooperative, resting comfortably in bed, desires d/c to home. Objective Data Objective Data s/p primary LTCS after a failed vacuum delivery attempt on 02/12/25. Desires d/c to home Vital Signs: Vital Signs Temp Pulse Resp BP Pulse Ox O2 Del Method 97.1 F L 79 16 100/68 99 Room Air 02/14/25 08:15 02/14/25 08:15 02/14/25 08:15 02/14/25 08:15 02/14/25 08:15 02/14/25 08:15 Oxygen Delivery Method Room Air Weight: 157 lb Body Mass Index (BMI) 27.8 Intake & Output: Intake and Output for Last 24 Hours 02/12/25 02/13/25 02/14/25 23:59 23:59 23:59 Intake Total 2832.5 / 2832.5 2025.0 / 2025.0 Output Total 2450 / 2450 800 / 800 Balance 382.5 / 382.5 1225.0 / 1225.0 Lab / Micro Data Attestation: I reviewed the patient's lab results. 02/14/25 05:40 02/12/25 08:45 Labs: Laboratory Results - last 24 hr 02/14/25 05:40: WBC 17.0 H, RBC 2.89 L, Hgb 8.5 L, Hct 25.2 L, MCV 87.2, MCH 29.4, MCHC 33.7, RDW Std Deviation 43.5, RDW Coeff of Mariia 13.7, Plt Count 244, MPV 10.0 Micro: Microbiology 02/12/25 07:51 Blood Culture (Wb) - Left Forearm Blood Culture - Preliminary No growth in 48 hours. 02/12/25 08:00 Urine Catheter - Parekh Urine Culture - Final Culture exhibits no growth. ROS Constitutional Constitutional: Reports systems reviewed and no addt'l complaints, except as documented Respiratory/Chest Respiratory/Chest: Reports systems reviewed and no addt'l complaints, except as documented Gastrointestinal Gastrointestinal: Reports systems reviewed and no addt'l complaints, except as documented Integumentary Integumentary: Reports systems reviewed and no addt'l complaints, except as documented Neurologic Neurologic: Reports systems reviewed and no addt'l complaints, except as documented Psychiatric Psychiatric: Reports systems reviewed and no addt'l complaints, except as documented Physical Exam Const alert, oriented x3 and no apparent distress General Appearance: cooperative, comfortable and well kempt Resp normal respiratory effort, normal air movement and no retractions Resp Narrative: Respirations eased & unlabored. No s/s of distress noted. GI normal to inspection, nondistended, normoactive bowel sounds, soft to palpation, non-tender and non-distended GI Narrative: reports passing flatus. Uterus Palpation: uterus fundus firm (Midline, u/1 to u/2, small dark lochia, no odor.) Skin Skin Narrative: LTCS wound dressing is dry & intact. Neuro oriented x3 Psych mental status grossly normal, thought process normal, cooperative, affect normal and speech normal Charges/Coding Multi Select Codes Urinary/Genital Urinary/Genital CPT Codes: 78592 CARE AFTER DELIVERY Assessment & Plan (1) Leukocytosis: COMMENT: blood and urine cultures sent, 24 hours of antibiotics. afebrile. PLAN: Afebrile. 02/14 - preliminary blood cultures negative. WBC count decreased to 17 from 27 on 02/13. Pt feeling well/desires d/c to home. (2) Status post section: COMMENT: JV. S/P LTCS on 02/12/25. (3) Failed vacuum extraction delivery: (4) Supervision of normal : QUALIFIERS: Normal : normal first Trimester: second trimester Qualified Code(s): Z34.02 - Encounter for supervision of normal first , second trimester COMMENT: PRR MARCELINA 02/09/25, girl BF: Toby (5) : QUALIFIERS: Weeks of gestation: 40 weeks Qualified Code(s): Z3A.40 - 40 weeks gestation of COMMENT: GBS neg, genetic- low risk. carrier- neg, normal anatomy (6) Anemia due to blood loss: COMMENT: Admission H/H: 12.9/37.5, 02/14 H/H: 8.5/25.2 PLAN: 1. Administer IV Venofer prior to d/c 2. PO Iron rx w/vit C x's 6 wks PLAN: Plan s/p LTCS PPD # 2 1. routine post care 2. breast feeding- support given 3. rh positive 4. rubella immune 5. Anemia of blood loss - administer Venofer IV/continue Iron PO 6 wks 6. Desires d/c to home.
--- NOTE | 2025-02-14 10:01 | PCM.DC.SUM ---
Providers Date of Admission: 02/11/25 Reason For Visit: PRIMARY C SECTION Diagnosis Discharge Diagnosis (1) Leukocytosis: Status: Acute Code(s): D72.829 - Elevated white blood cell count, unspecified Plan: Afebrile. 02/14 - preliminary blood cultures negative. WBC count decreased to 17 from 27 on 02/13. Pt feeling well/desires d/c to home. (2) Status post section: Status: Acute Code(s): Z98.891 - History of uterine scar from previous surgery (3) Failed vacuum extraction delivery: Status: Acute Code(s): O66.5 - Attempted application of vacuum extractor and forceps (4) Supervision of normal : Status: Acute Code(s): Z34.90 - Encounter for supervision of normal , unspecified, unspecified trimester Qualifiers: Normal : normal first Trimester: second trimester Qualified Code(s): Z34.02 - Encounter for supervision of normal first , second trimester (5) : Status: Acute Code(s): Z34.90 - Encounter for supervision of normal , unspecified, unspecified trimester Qualifiers: Weeks of gestation: 40 weeks Qualified Code(s): Z3A.40 - 40 weeks gestation of (6) Anemia due to blood loss: Status: Acute Code(s): D50.0 - Iron deficiency anemia secondary to blood loss (chronic) Plan: 1. Administer IV Venofer prior to d/c 2. PO Iron rx w/vit C x's 6 wks Plan s/p LTCS PPD # 2 1. routine post care 2. breast feeding- support given 3. rh positive 4. rubella immune 5. Anemia of blood loss - administer Venofer IV/continue Iron PO 6 wks 6. Desires d/c to home. Medications at Discharge Home Medications vits,calcium no.78-iron fumarate-folic acid 29 mg-1 mg tablet (Prenatabs FA) 1 tab PO DAILY 02/11/25 ibuprofen 800 mg tablet 800 mg PO Q8H PRN pain #30 tabs 02/12/25 oxycodone-acetaminophen 5 mg-325 mg tablet (Percocet) 1 tab PO Q4H PRN pain 7 days #20 tabs 02/12/25 polysaccharide iron complex 150 mg iron capsule 150 mg PO DAILY Anemia of blood loss #60 caps 11/01/25 Hospital Course Operations - (Primary LTCS after failed vacuum delivery. ) Physical Exam Const alert, oriented x3 and no apparent distress General Appearance: cooperative, comfortable, well kempt and well developed HEENT normocephalic Resp normal respiratory effort Resp Narrative: Respirations eased & unlabored, no s/s of distress noted. GI normal to inspection, nondistended, normoactive bowel sounds GI Narrative: reports passing flatus. Skin Skin Narrative: LTCS wound dressing is dry & intact. No drainage noted. Neuro oriented x3 Psych mental status grossly normal, thought process normal, cooperative, affect normal and speech normal Weight / BMI Weight Weight: 157 lb Body Mass Index (BMI) 27.8 ABG / Lab / Microbiology Data 02/14/25 05:40 02/12/25 08:45 Laboratory: Laboratory Results - last 24 hr 02/14/25 05:40: WBC 17.0 H, RBC 2.89 L, Hgb 8.5 L, Hct 25.2 L, MCV 87.2, MCH 29.4, MCHC 33.7, RDW Std Deviation 43.5, RDW Coeff of Mariia 13.7, Plt Count 244, MPV 10.0 Microbiology: Microbiology 02/12/25 07:51 Blood Culture (Wb) - Left Forearm Blood Culture - Preliminary No growth in 48 hours. 02/12/25 08:00 Urine Catheter - Parekh Urine Culture - Final Culture exhibits no growth. D/C Instructions May resume sexual activity in: 4-6 weeks Weight Bearing Status: Full weight bearing Call your doctor if your incision/area has: Continuous Slow Oozing, Sudden Increased Bleeding, Increased Pain/ Swelling, Increased Redness and Foul Smelling Discharge Call your doctor if you observe: Fever of 101 or Higher and Using more than 1 pad per hour Suture Line Care: Avoid Pulling/Pushing and Avoid Pinching/Bending Cleanse incision/area with: Soap & Water and Keep Dressing Clean & Dry DC O2, CPAP, BIPAP Needs Home O2 Discharge instructions: No Please Follow Up With: Nadia Ryan DO When: Call [phone] to make an appointment for an incision check in 1-2 weeks. Meaningful Use Info Meaningful Use Meaningful Use Diagnoses (Choose all that apply): None applicable Discharge Plan Admission Admit Date/Time: 02/11/25 07:50 Primary Reason for Your Visit: section and removal of dermoid cyst Attending Provider: Nadia Ryan Instructions Patient Instructions: Section Dc Additional Instructions / Restrictions: Rest, relax & enjoy baby at home! Discharge Orders/Prescriptions Prescriptions: New ibuprofen 800 mg tablet 800 mg PO Q8H PRN (Reason: pain) Qty: 30 0RF oxycodone-acetaminophen [Percocet] 5-325 mg tablet 1 tab PO Q4H PRN (Reason: pain) 7 Days Qty: 20 0RF polysaccharide iron complex 150 mg iron capsule 150 mg PO DAILY MDD 150mg Qty: 60 0RF Rx Instructions: Take w/Vit C Avoid calcium product 1 hour prior to & after taking Iron. Continued Prenatabs FA 29-1 mg tablet 1 tab PO DAILY Disposition Disposition (needs filled in before D/C Order can be placed): Home, Self Care Charges/Coding Multi Select Codes Urinary/Genital Urinary/Genital CPT Codes: 45871 Vaginal Delivery+ PP Care([facility])
[2025-02-14] MEDS: Iron Sucrose Complex 200 MG in 0.9% Normal Saline (100mL Bag) 100 ML 220 MG IV (11:17)
[2025-02-14] MEDS: 0.9% Saline Lock 10 ML Syringe IV (11:17)
[2025-02-14 14:02] VITALS: BP 102/72; PULSE 73; RESP 18; TEMP 36.4; O2SAT 99
[2025-02-14] MEDS: SELF ADMINISTRATION OF MEDS 1 EACH NOTE (14:57)
== END 2025-02-14 15:15 | disposition home or self-care (01) | DRG 787 ==
LOC: WPOUT 07:54 → WP 23:38
PROVIDERS: Obstetrics & Gynecology; Admitting Provider Obstetrics & Gynecology; Referring Provider Obstetrics & Gynecology; Visit Provider Obstetrics & Gynecology
DX: O42.02 Full-term premature rupture of membranes, onset of labor within 24 hours of rupture (principal); O99.12 Other diseases of the blood and blood-forming organs and certain disorders involving the immune mechanism complicating childbirth; O71.4 Obstetric high vaginal laceration alone; D50.0 Iron deficiency anemia secondary to blood loss (chronic); D72.829 Elevated white blood cell count, unspecified; O32.4XX0 Maternal care for high head at term, not applicable or unspecified; O90.81 Anemia of the puerperium; D27.0 Benign neoplasm of right ovary; Z37.0 Single live birth; O34.83 Maternal care for other abnormalities of pelvic organs, third trimester; O99.892 Other specified diseases and conditions complicating childbirth; O66.5 Attempted application of vacuum extractor and forceps; Z3A.40 40 weeks gestation of pregnancy
CPT/HCPCS: 59025; 59050; 80170; 82565; 82962; 84112; 85025; 85027; 86780; 86850; 86900; 86901; 87040; 87086; 88304; 88307; 99221; J1756; A4216; G0378; J2405

== ENCOUNTER → 2025-02-26 | Outpatient (CLI) | payer OTHER, SELFPAY ==
[2025-02-26 14:45] LABS: Hematocrit 38.1 % (37-47); Hemoglobin 12.6 g/dL (12.0-15.0); Immature Granulocytes Count 0.060 X10^3/uL (0.0-0.0); Mean Corp Hgb Conc 33.1 g/dL (32-36); Mean Corpuscular Volume 88.4 fL (81-99); Mean Platelet Vol. 8.8 fl (6.2-12.0); NRBC Flagged by Analyzer 0 % (0-5); Platelet Count 518 K/mm3 (150-450); RBC Distribution Width CV 13.0 % (11.6-14.6); RBC Distribution Width SD 42.3 fl (35.1-43.9); Red Blood Count 4.31 M/mm3 (4.2-5.4); White Blood Count 13.4 K/mm3 (4.4-11.0)
[2025-02-26 15:16] LABS: AST(SGOT) 17 U/L (<=31); Alanine Aminotransfer ALT/SGPT 12 U/L (<=34); Albumin, Serum 4.5 g/dL (3.5-5.0); Alkaline Phosphatase 146 U/L (35-104); Anion Gap 11 (5-15); BUN 27 mg/dL (4-19); BUN/Creat Ratio 31.9 RATIO (10-20); Calcium,Total 9.8 mg/dL (7.6-11.0); Carbon Dioxide 23.4 mmol/L (21.0-32.0); Chloride 105 mmol/L (98-108); Ferritin 213 ng/mL (22-378); Globulin 2.8 g/dL (2.2-4.2); Glucose 103 mg/dL (70-99); Iron 76 ug/dL (50-170); Iron Binding Capacity,Total 353 ug/dL (250-450); Iron Binding Capacity,Unsat 277 ug/dL (228-428); Potassium 4.6 mmol/L (3.3-5.1)
== END | disposition home or self-care (01) ==
PROVIDERS: Nurse Practitioner Family; Visit Provider Obstetrics & Gynecology
DX: D50.0 Iron deficiency anemia secondary to blood loss (chronic) (principal)
CPT/HCPCS: 36415; 80053; 82728; 83540; 83550; 85025

== ENCOUNTER → 2025-04-13 | Outpatient (CLI) | payer OTHER, SELFPAY ==
--- NOTE | 2025-04-13 13:22 | US_ITS ---
PROCEDURE: PELVIC W/ TRANSVAGINAL 04/13/2025 REASON FOR EXAM: ABNORMAL UTERINE BLEEDING TECHNIQUE: Procedure Code: [id number] Modality: US Procedure: PELVIC W/ TRANSVAGINAL Transabdominal and transvaginal COMPARISON: None. FINDINGS: Measurements: Uterus is anteverted measuring 11 x 6.2 x 4.7 cm. No fibroid or suspicious mass. Endometrium is normal thickness at 6 mm, is hyperechoic and contains some anechoic fluid Right ovary measures 2.6 x 2.9 x 1.5 cm Left ovary measures 2.4 x 3.1 x 1.9 cm. No fluid in the cul de sac, bladder distends normally DOPPLER: Color Doppler: Normal color flow doppler signal at both ovaries. Spectral Doppler: Normal arterial inflow and venous outflow signal at both ovaries. US/Pelvic w/ Transvaginal IMPRESSION: No suspicious uterine abnormality. The endometrium is of normal thickness and show some anechoic fluid likely hemorrhage, perhaps related to cycle. Sonographically normal ovaries No free fluid Reading Location: [id number]
== END | disposition home or self-care (01) ==
LOC: US 13:17
PROVIDERS: Referring Provider Obstetrics & Gynecology; Visit Provider Obstetrics & Gynecology
DX: D50.0 Iron deficiency anemia secondary to blood loss (chronic) (principal); N93.9 Abnormal uterine and vaginal bleeding, unspecified
CPT/HCPCS: 76830; 76856